=== PATIENT | female | born 1955 | race Caucasian/White ===

== ENCOUNTER 2020-12-04 16:11 | Outpatient (REF) | payer OTHER, SELFPAY ==
--- NOTE | 2020-12-04 16:14 | US_ITS ---
EXAMINATION: ULTRASOUND SOFT TISSUE HEAD AND NECK CLINICAL INFORMATION: ENLARGED LYMPH NODES COMPARISON: None TECHNIQUE: Doppler color and grayscale evaluation of the bilateral neck in the submandibular region FINDINGS: There are bilateral lymph nodes adjacent to the submandibular glands. There are 3 lymph nodes on the right. These measure 1.1 x 0.8 x 1 cm, 0.9 x 0.5 x 0.9 cm and 0.6 x 0.7 x 0.7 cm. These are normal in size and demonstrate normal ultrasound morphology and flow. There are 3 lymph nodes on the left. These measure 1 x 0.6 x 1.7 cm, 0.5 x 0.4 x 0.7 cm and 0.8 x 0.6 x 0.7 cm. These are normal in size and demonstrate normal ultrasound morphology and flow. Management should be determined on a clinical basis. US/US soft tiss head and/or neck IMPRESSION: Bilateral normal-appearing cervical lymph nodes adjacent to the submandibular glands. Management should be determined on a clinical basis.
== END 2020-12-04 16:12 | disposition home or self-care (01) ==
LOC: HO.US 16:11
PROVIDERS: Visit Provider Internal Medicine
DX: R59.1 Generalized enlarged lymph nodes (principal)
CPT/HCPCS: 76536

== ENCOUNTER 2021-01-01 06:22 | Outpatient (REF) | payer OTHER, SELFPAY ==
[2021-01-01 07:16] LABS: MANUAL DIFF FLAG NO
[2021-01-01 07:34] LABS: Basophils Percent Auto 0.8 % (0-2); Eosinophils Absolute Auto 0.2 X10*3/uL (0.0-0.4); Eosinophils Percent Auto 3.2 % (0-4); Hematocrit 41.1 % (37-47); Hemoglobin 13.3 g/dl (12.0-16.0); Imm Gran Abs Auto 0.02 X10*3/uL (0.00-0.03); Imm Gran Pct Auto 0.4 % (0.0-0.4); Lymphocytes Absolute Auto 2.1 X10*3/uL (1.2-4.9); Lymphocytes Percent Auto 39.4 % (20-40); Mean Corpuscular HGB Conc 32.4 g/dl (31.0-35.0); Mean Corpuscular Hemoglobin 30.8 pg (27.0-33.0); Mean Corpuscular Volume 95.1 fL (80-98); Mean Platelet Volume 11.6 fL (9.4-12.3); Monocytes Absolute Auto 0.6 X10*3/uL (0.1-1.2); Monocytes Percent Auto 11.3 % (2-11); Neutrophils Absolute Auto 2.4 X10*3/uL (2.0-8.3); Neutrophils Percent Auto 44.9 % (45-73); Platelet Count 186 X10*3/uL (160-400); Red Blood Count 4.32 X10*6/uL (4.20-5.50); Red Cell Distribution Width 14.6 % (11.0-16.0); White Blood Count 5.3 X10*3/uL (4.8-10.8)
[2021-01-01 07:42] LABS: Alanine Aminotransferase 53 U/L (0-31); Albumin Level 4.1 g/dL (3.5-5.0); Alkaline Phosphatase 79 U/L (39-117); Anion Gap 11 (12-20); Aspartate Amino Transferase 50 U/L (5-31); Bilirubin Total 0.8 mg/dL (0.0-1.0); Blood Urea Nitrogen 16 mg/dL (9-16); Calcium 9.5 mg/dL (8.4-10.2); Carbon Dioxide 30 mmol/L (22-29); Chloride 104 mmol/L (96-108); Estimated Glomerular Filt Rate 51; Glucose Random 99 mg/dL (60-115); Potassium 4.2 mmol/L (3.3-5.1); Sodium 141 mmol/L (135-145); Total Protein 7.3 g/dL (6.5-8.0)
== END 2021-01-01 06:23 | disposition home or self-care (01) ==
LOC: HO.LAB 06:22
PROVIDERS: Visit Provider Internal Medicine
DX: R59.1 Generalized enlarged lymph nodes (principal)
CPT/HCPCS: 36415; 80053; 85025

== ENCOUNTER 2021-02-10 07:20 | Outpatient (REF) | payer OTHER, SELFPAY ==
[2021-02-10 08:10] LABS: Blood Urea Nitrogen 16 mg/dL (9-16); Estimated Glomerular Filt Rate 50
[2021-02-16 11:52] LABS: Vitamin D 25-OH, D2 <4 ng/mL; Vitamin D 25-OH, D3 44 ng/mL; Vitamin D 25-OH, Total 44 ng/mL (30-100)
[2021-02-17 18:36] LABS: Parathyroid Hormone Related Pr 17 pg/mL (14-27)
== END 2021-02-10 07:21 | disposition home or self-care (01) ==
LOC: HO.LAB 07:20
PROVIDERS: PCP Internal Medicine; Visit Provider Internal Medicine
DX: E55.9 Vitamin D deficiency, unspecified (principal); R22.1 Localized swelling, mass and lump, neck
CPT/HCPCS: 36415; 82306; 82565; 83519; 84520

== ENCOUNTER 2021-02-13 07:50 | Outpatient (REF) | payer OTHER, SELFPAY ==
--- NOTE | ~2021-02-13 | CT_ITS ---
EXAMINATION: CT SOFT TISSUE NECK WITH CONTRAST CLINICAL INFORMATION: Localized swelling, mass or lump COMPARISON: None TECHNIQUE: Following the intravenous administration of 100 mL of Omnipaque 350 intravenous contrast, helical imaging was performed in the axial plane with generation of coronal and sagittal reformatted images. This CT examination was performed using dose optimization techniques as appropriate, variously including the following: *Automated exposure control *Adjustment of mA and/or kV according to patient size (this includes techniques or standardized protocols for targeted exams where dose is matched to indication/reason for exam; i.e. extremities or head) *Use of iterative reconstruction technique DLP: 376 mGy-cm FINDINGS: There are bilateral shotty neck lymph nodes. The largest submandibular left neck lymph node measures 1.5 cm on axial image 56/3. The largest right submandibular and left and measures 9 mm. The parotid glands are homogeneous in attenuation. The submandibular glands are normal. No contour abnormality or pathologic enhancement is seen within the oral cavity or pharyngeal mucosal space. There is significant narrowing of the laryngeal airway with mild bilateral thickening of aryepiglottic folds. No abnormal enhancement seen in the larynx. The vocal cords are symmetrical. The parapharyngeal fat is preserved. The carotid sheath vasculature opacify normally. No extra mucosal soft tissue mass or fluid collection is seen. No retropharyngeal fluid collection is seen. There is a complex 7 mm nodule right thyroid lobe. The thyroid gland is heterogeneous. The superior mediastinum is unremarkable. The lung apices are clear. The mastoid air cells are normal. There is small polyp or retention cyst left maxillary sinus. Rest of the paranasal sinuses are well-aerated and clear. The temporomandibular joints are normal. No periapical disease is identified. No osseous abnormalities are seen. The imaged portions of the brain parenchyma are unremarkable. CT/CT soft tissue neck w con IMPRESSION: No mass, lump or abnormal neck lymphadenopathy seen. There is significant laryngeal airway narrowing from thickening of aryepiglottic fold.
== END 2021-02-13 07:51 | disposition home or self-care (01) ==
LOC: HO.CT 07:50
PROVIDERS: Visit Provider Internal Medicine
DX: R22.1 Localized swelling, mass and lump, neck (principal)
CPT/HCPCS: 70491; Q9967

== ENCOUNTER 2021-03-14 07:23 | Outpatient (REF) | payer OTHER, SELFPAY ==
--- NOTE | ~2021-03-14 | US_ITS ---
EXAMINATION: US THYROID CLINICAL INFORMATION: Nontoxic single thyroid nodule. COMPARISON: CT soft tissue neck 02/13/2021. Ultrasound soft tissue head and neck 12/04/2020. TECHNIQUE: Linear transducer grayscale and color Doppler examination with attention to the region of the thyroid. FINDINGS: SIZE: Measurements of the thyroid lobes and nodules are given in sagittal, anteroposterior and transverse dimensions respectively. Right Thyroid Lobe: 3.48 x 1.51 x 1.40 cm, volume 3.85 mL. Parenchyma: The gland echotexture is heterogeneous. Thyroid vascularity is normal. Left Thyroid Lobe: 4.23 x 1.85 x 1.49 cm, volume 6.12 mL. Parenchyma: The gland echotexture is heterogeneous. Thyroid vascularity is normal. Isthmus: 0.46 cm in maximum AP dimension. Estimated total number of nodules greater than or equal to 1 cm: 1. [employer] nodules are described as follows: 1. Location: Right upper. Size: 0.78 x 0.61 x 0.84 cm, volume 0.21 mL. Nodule characteristics: Composition: Spongiform (0). Echogenicity: 0 Shape: 0 Margins: 0 Echogenic Foci: 0 ACR TI-RADS total points: 0 ACR TI-RADS category: 1 2. Location: Left lower pole. Size: 1.9 x 1.6 x 1.7 cm, volume 2.7 mL. Nodule characteristics: Composition: Solid/almost completely solid (2). Echogenicity: Hyperechoic (1). Shape: Not taller than wide (0). Margins: Smooth (0). Echogenic Foci: Punctate echogenic foci (3). ACR TI-RADS total points: 6 ACR TI-RADS category: 4 3. Location: Left midpole. Size: 0.40 x 0.31 x 0.44 cm, volume 0.03 mL. Nodule characteristics: Composition: Cystic(0). ACR TI-RADS total points: 0 ACR TI-RADS category: 1 NODES: There is a 1.2 x 0.7 x 0.7 cm hypoechoic lesion exophytic to the posterior lower pole of the left lobe. This appears solid and avascular. This may represent a lymph node. US/US thyroid IMPRESSION: Heterogeneous thyroid gland with bilateral thyroid nodules. Fine-needle aspiration of the largest nodule in the inferior left lobe and continued ultrasound follow-up as described below is recommended. ACR TI-RADS RECOMMENDATION REFERENCE: Ultrasound-guided fine-needle aspiration, followup ultrasound, no further follow up. * TR1 (0 point) and TR 2 (2 points): No FNA or follow up * TR3 (3 points): FNA if more than or equal to 2.5 cm in maximum dimension, followup ultrasound in 1, 3 and 5 years if 1.5 to 2.4 cm in maximum dimension. * TR4 (4-6 points): FNA if more than or equal to 1.5 cm in maximum dimension, followup ultrasound in 1, 2, 3 and 5 years if 1 to 1.4 cm in maximum dimension. * TR5 (more than or equal to 7 points): FNA if more than or equal to 1 cm in maximum dimension, followup ultrasound every year for 5 years if 0.5 to 0.9 cm in maximum dimension. * TR3, TR4 or TR5 nodules that are below the size threshold for follow up receive no follow up.
== END 2021-03-14 07:24 | disposition home or self-care (01) ==
LOC: HO.US 07:23
PROVIDERS: Visit Provider Internal Medicine
DX: E04.1 Nontoxic single thyroid nodule (principal)
CPT/HCPCS: 76536

== ENCOUNTER → 2021-03-23 14:10 | Outpatient (BNVA) | payer OTHER, SELFPAY | PROVIDERS: PCP Internal Medicine; Visit Provider Internal Medicine Pulmonary Disease ==

== ENCOUNTER 2021-03-30 14:15 | Outpatient (REF) | payer OTHER, SELFPAY ==
--- NOTE | ~2021-03-30 | MM_ITS ---
EXAMINATION: MM DIAGNOSTIC DIGITAL BREAST TOMOSYNTHESIS, BILATERAL CLINICAL INFORMATION: Bilateral retroareolar lump. The lifetime risk of breast cancer based on the Tyrer-Cuzick Model is 8.5%. COMPARISON: Mammography: 05/13/2014 and studies dating back to 06/04/2008. TECHNIQUE: Digital breast tomosynthesis is performed in both the craniocaudal and mediolateral oblique views along with computer-aided detection (CAD). Synthesized 2D images are generated from the Tomosynthesis. Additional left exaggerated craniocaudal view performed. Bilateral targeted breast ultrasound. FINDINGS: The breasts are heterogeneously dense, which may obscure small masses (ACR BI-RADS breast composition Category c). There are no significant masses, abnormal calcifications, or other abnormalities. Targeted bilateral breast ultrasound demonstrated prominent bilateral retroareolar breast ducts without abnormal filling defects. No suspicious region of abnormal distal sound shadowing is appreciated. Results are provided to the patient at time of visit by the technologist. MM/MM tomosynthesis diagnostic BI IMPRESSION: No specific mammographic or ultrasound findings to suggest malignancy. ASSESSMENT: BI-RADS 1: Negative. RECOMMENDATION: Routine annual mammography screening due in 12 months. This patient's information was entered into a reminder system with a target due date for their next mammogram.
--- NOTE | ~2021-03-30 | US_ITS ---
EXAMINATION: US DIAGNOSTIC ULTRASOUND BREAST, BILATERAL CLINICAL INFORMATION: Bilateral breast lumps. COMPARISON: Mammography of same day and studies dating back to July 20, 2011. TECHNIQUE: Ultrasound of the breast is performed with real-time dodd scale imaging and color Doppler. FINDINGS: Targeted bilateral breast ultrasound demonstrated prominent bilateral retroareolar breast ducts without abnormal filling defects. No suspicious region of abnormal distal sound shadowing is appreciated. Results are provided to the patient at time of visit by the technologist. US/US breast LT limited IMPRESSION: No specific mammographic or ultrasound findings to suggest malignancy. ASSESSMENT: BI-RADS 1: Negative RECOMMENDATION: Routine annual mammography screening due in 12 months.
== END 2021-03-30 14:16 | disposition home or self-care (01) ==
LOC: HO.MAMMO 14:15
PROVIDERS: PCP Internal Medicine Cardiovascular Disease; Visit Provider Internal Medicine
DX: N63.15 Unspecified lump in the right breast, overlapping quadrants (principal); N63.25 Unspecified lump in the left breast, overlapping quadrants
CPT/HCPCS: 76642; 77062; 77066

== ENCOUNTER → 2021-04-25 12:48 | Outpatient (BNVA) | payer OTHER, SELFPAY | PROVIDERS: PCP Internal Medicine; Visit Provider Internal Medicine ==

== ENCOUNTER 2021-04-30 07:48 | Outpatient (REF) | payer OTHER, SELFPAY ==
--- NOTE | 2021-04-30 17:45 | PFT_ITS ---
NOTE: The patient unable to perform SVC maneuver due to anxiety. The patient unable to continue forward with the study. Therefore, the patient was not able to perform adequate pulmonary function study at this time. Not able to perform spirometry or diffusion capacity. Lung volumes demonstrates an SVC of 1.49 L, which is 49% predicted, and an expiratory reserve volume of 24% predicted secondary to elevated BMI. Again, this study was inconclusive due to the patient's inability to perform the study. MD SANTO Cevallos/DANIKA / [phone]
== END 2021-04-30 07:49 | disposition home or self-care (01) ==
LOC: HO.RESP 07:48
PROVIDERS: PCP Internal Medicine; Visit Provider Internal Medicine Pulmonary Disease
DX: Z13.89 Encounter for screening for other disorder (principal)

== ENCOUNTER 2021-05-01 06:46 | Outpatient (REF) | payer OTHER, SELFPAY ==
[2021-05-01 08:03] LABS: Free T4 (Free Thyroxine) 0.93 ng/dL (0.71-1.85); Thyroid Stimulating Hormone 1.73 uIU/mL (0.32-4.0)
== END 2021-05-01 06:47 | disposition home or self-care (01) ==
LOC: HO.LAB 06:46
PROVIDERS: PCP Internal Medicine; Visit Provider Internal Medicine
DX: E04.2 Nontoxic multinodular goiter (principal)
CPT/HCPCS: 36415; 84439; 84443

== ENCOUNTER → 2021-05-16 08:10 | Outpatient (BNVA) | payer OTHER, SELFPAY | PROVIDERS: PCP Internal Medicine; Visit Provider Physician Assistant ==

== ENCOUNTER → 2021-05-22 09:11 | Outpatient (BNVA) | payer OTHER, SELFPAY | PROVIDERS: PCP Internal Medicine; Visit Provider Internal Medicine Pulmonary Disease ==

== ENCOUNTER → 2021-06-01 07:51 | Outpatient (REF) | payer OTHER, SELFPAY ==
--- NOTE | 2021-06-01 07:56 | CA_ITS ---
Transthoracic Echocardiogram Patient (Last, First, Middle): Devika Quiñonez B Gender: Female Date of : 1955 Age: 66 Procedure Date: 06/01/2021 Procedure Type: Transthoracic Echocardiogram Location: OP Height: 170.18 cm Weight: 115.67 kg BSA: 2.24 m2 Heart Rate: bpm BP: 127 / 71 mmHg Post Graduate Internship: [facility] Referring MD: Khang Marvin MD Symptoms: R06.00 - Dyspnea, unspecified Study Quality: Fair/Contrast Conclusions: - Normal left ventricular size and systolic function. There is mildly increased left ventricular wall thickness. The visually estimated ejection fraction is between 65-70%. - E/E prime ratio is between 8 and 15 consistent with indeterminate filling pressures. - Normal right ventricular cavity size and systolic function. - There is mild dilatation of the ascending aorta measuring 3.90 cm. Findings Procedure Information Contrast agent, definity, is being given per protocol without apparent complications. Left Ventricle Normal left ventricular size and systolic function. There is mildly increased left ventricular wall thickness. The visually estimated ejection fraction is between 65-70%. There is no evidence of regional wall motion abnormalities. Abnormal diastolic function is noted. Spectral Doppler is indicative of a pseudonormal filling pattern. E/E prime ratio is between 8 and 15 consistent with indeterminate filling pressures. Right Ventricle Normal right ventricular cavity size and systolic function. Atria Both atria are normal in size. Aortic Valve Normal aortic valve structure and function. There is no aortic valve stenosis. There is no aortic valve regurgitation. Mitral Valve There is moderate mitral annular calcification. There is no mitral valve regurgitation. There is no mitral valve stenosis. Pulmonic Valve The pulmonic valve is likely normal. Tricuspid Valve Normal tricuspid valve structure and function. There is trace tricuspid valve regurgitation. Normal right atrial pressure. Mild pulmonary hypertension is present. Great Vessels The pulmonary artery was not well visualized. There is mild dilatation of the ascending aorta measuring 3.90 cm. Venous The inferior vena cava is normal in size and collapses greater than 50% with inspiration. Pericardium/Pleural There is no evidence of pericardial effusion. Prior Study Comparison No significant change compared to prior study dated: 02/27/2019. Measurements 2D Linear Measurements IVSd: 1.12 0.6-0.9/0.6-1.0 cm LVIDd: 4.11 3.9-5.3/4.2-5.9 cm LVIDd Index: 1.83 2.4-3.2/2.2-3.1 cm/m2 LVIDs: 2.41 2.0-3.6 cm LVPWd: 1.20 0.7-1.1 cm Ao Root: 3.20 2.1-3.5 cm LA Diam: 4.00 2.7-3.8/3.0-4.0 cm LAIDs Index: 1.79 1.5-2.3 cm/m2 LV Mass: 204.28 67-162/88-224 g LV Mass Index: 91.20 43-95/49-115 g/m2 LVOT Diam: 2.10 3.0+(-)1.3 cm 2D Systolic Function EF 4C: 76.10 >55% EF 2C: 68.70 >55% EF BiP: 71.70 >55% Mitral Valve MV Pk E: 0.91 MV PK A: 0.85 MV Decel Time: 243.00 E/A: 1.10 E'Lateral: 8.05 E'Medial: 7.72 E/E' Med: 11.70 E/E' Lat: 11.30 PHT: 71.00 MVA PHT: 3.10 Decel [place]: 3.73 Aortic Valve AoV Pk Yasmany: 1.45 AoV Mn Yasmany: 1.00 AoV VTI: 0.33 AoV Pk Grad: 8.00 Aov Mn Grad: 4.00 NANCY Cont.VTI: 2.33 LVOT LVOT Pk Yasmany: 0.81 LVOT Mn Yasmany: 0.54 LVOT VTI: 0.22 LVOT Pk Grad: 3.00 LVOT Mn Grad: 1.00 LVOT Diam: 2.10 LVOT Area: 3.46 Diastolic Function MV Pk E: 0.91 MV Pk A: 0.85 E/A: 1.10 E'Medial: 7.72 E/E' Med: 11.70 E' Laterial: 8.05 E/E' Lat: 11.30 Right Ventricle TAPSE (mm): 2.53 Tricuspid Valve TR Pk Yasmany: 2.71 TR Pk Grad: 29.00 RA Press: 8.00 RVSP: 37.00 Great Vessels Aorta Ao Root-2D: 3.20 2.0-3.7 cm Ao Asc: 3.90 2.1-3.4 cm Ao Arch: 3.10 Updated in Other Vendor System with Status of Final Jose Manuel Ma MD electronically signed on 06/02/2021 10:03:05 PM with status of Final
== END ==
LOC: HO.CARD 07:51
PROVIDERS: Visit Provider Internal Medicine Pulmonary Disease
DX: R06.00 Dyspnea, unspecified (principal)
CPT/HCPCS: 93306; Q9957

== ENCOUNTER → 2021-06-11 08:54 | Outpatient (BNVA) | payer OTHER, SELFPAY | PROVIDERS: PCP Internal Medicine; Visit Provider Internal Medicine Pulmonary Disease ==

== ENCOUNTER 2021-07-05 07:26 | Outpatient (REF) | payer OTHER, SELFPAY ==
--- NOTE | 2021-07-05 08:25 | PM.OP ---
Brief Operative Note Date of Service: 07/05/21 Pre-op diagnosis: Multinodular thyroid Post-op diagnosis: same Procedure: This is doctor Cleopatra Dias. This is an ultrasound-guided fine-needle aspiration report. Date of Examination: 07/05/2021 Indication: Multinodular Thyroid Porcedure: Procedure was explained to the patient. Alternatives, the risk and benefits were discussed. Written consent was obtained. A time-out was also obtained. After sterile preparation, 0.5 cc of lidocaine was administered to the L thyroid region subcutaneously. The patient then began having a panic attack and the procedure was aborted. The LLP nodule was remeasured at 2.2 cm, slightly large from prior. Will discuss with Radiology performing this under conscious sedation. Surgeon: Cleopatra Dias, DO Was an Centrifugal Casting Machine Operator used for this Procedure?: No Estimated blood loss (mL): 0
[2021-07-05] MEDS: Lidocaine HCl 1 % MPF 5 ML VIAL SUBCUT (11:11)
== END 2021-07-05 07:27 | disposition home or self-care (01) ==
LOC: HO.US 07:26
PROVIDERS: PCP Internal Medicine; Visit Provider Internal Medicine
DX: E04.2 Nontoxic multinodular goiter (principal); F41.0 Panic disorder [episodic paroxysmal anxiety]; Z53.8 Procedure and treatment not carried out for other reasons
CPT/HCPCS: 10005

== ENCOUNTER → 2021-07-18 07:43 | Outpatient (BNVA) | payer OTHER, SELFPAY | PROVIDERS: PCP Internal Medicine; Visit Provider Internal Medicine ==

== ENCOUNTER 2021-08-03 07:16 | Day surgery (SDC) | payer OTHER, SELFPAY ==
--- NOTE | ~2021-08-03 | US_ITS ---
EXAMINATION: US GUIDED FINE NEEDLE ASPIRATION LEFT THYROID NODULE AND LYMPH NODE CLINICAL INFORMATION: There is a heterogeneous nodule lower pole left thyroid lobe and a cervical lymph node posterior to the lower pole of left thyroid lobe. COMPARISON: Ultrasound thyroid 03/14/2021. TECHNIQUE: Following explaining ultrasound-guided fine-needle aspiration biopsy procedure, benefits and risks of left thyroid nodule, a written consent was obtained. A written consent for conscious sedation was performed as well. Patient was placed supine on ultrasound stretcher with the head extended. Preliminary ultrasound imaging was obtained. Site for thyroid nodule and lymph node biopsy was marked on the anterior skin. The left anterior neck was cleaned and draped in the usual sterile manner. 1% lidocaine was injected at the puncture site. A 25-gauge needle was then advanced from the skin into left thyroid nodule under sterile ultrasound guidance and a 3-pass fine-needle aspiration performed. Slightly deeper lymph node was biopsied in a similar fashion x2. Postprocedure complete hemostasis achieved at puncture site. Sterile Band-Aid applied at the puncture site. Patient tolerated procedure extremely well. Conscious sedation and patient monitoring was performed during the exam. Approximately 2 mg of Versed and 50 mcg of fentanyl was given during the exam. FINDINGS: On preliminary ultrasound imaging, there is a complex nodule lower pole left thyroid lobe measuring 1.8 x 1.9 x 1.5 cm. 3 passes with fine-needle aspiration was performed. The tissue was adequate. The lymph node posterior to lower pole thyroid nodule was biopsied x2. No immediate pathology diagnosis was noted. US/US guided fine needle asp IMPRESSION: Successful ultrasound-guided 3-pass left thyroid lower pole nodule biopsy performed. A 2-pass lymph node biopsy was performed posterior to left thyroid nodule in the lower pole. Awaiting cytology results.
[2021-08-03 07:50] VITALS: BP 163/96; PULSE 78; RESP 19; TEMP 36.6; O2SAT 96; BMI 41.9
[2021-08-03 08:37] LABS: MANUAL DIFF FLAG NO
[2021-08-03 08:44] LABS: Basophils Percent Auto 0.5 % (0-2); Eosinophils Absolute Auto 0.1 X10*3/uL (0.0-0.4); Eosinophils Percent Auto 2.4 % (0-4); Hematocrit 39.9 % (37-47); Imm Gran Abs Auto 0.02 X10*3/uL (0.00-0.03); Imm Gran Pct Auto 0.3 % (0.0-0.4); Lymphocytes Percent Auto 35.2 % (20-40); Mean Corpuscular HGB Conc 32.6 g/dl (31.0-35.0); Mean Corpuscular Hemoglobin 30.2 pg (27.0-33.0); Mean Corpuscular Volume 92.6 fL (80-98); Mean Platelet Volume 10.8 fL (9.4-12.3); Monocytes Absolute Auto 0.7 X10*3/uL (0.1-1.2); Monocytes Percent Auto 11.6 % (2-11); Neutrophils Absolute Auto 2.9 X10*3/uL (2.0-8.3); Platelet Count 177 X10*3/uL (160-400); Red Blood Count 4.31 X10*6/uL (4.20-5.50); Red Cell Distribution Width 13.9 % (11.0-16.0); White Blood Count 5.8 X10*3/uL (4.8-10.8)
[2021-08-03 08:49] LABS: Prothrombin Time 11.2 SEC (9.9-13.0)
[2021-08-03 08:52] LABS: Partial Thromboplastin Time 40.8 SEC (24.1-38.0)
[2021-08-03 08:55] LABS: Anion Gap 12 (12-20); Blood Urea Nitrogen 14 mg/dL (9-16); Carbon Dioxide 26 mmol/L (22-29); Chloride 105 mmol/L (96-108); Potassium 3.7 mmol/L (3.3-5.1); Sodium 139 mmol/L (135-145)
[2021-08-03] MEDS: Lidocaine HCl 1 % MPF 5 ML VIAL SUBCUT (10:37)
[2021-08-03 10:49] VITALS: BP 165/95; PULSE 80; RESP 18; TEMP 36.6; O2SAT 95
[2021-08-03 11:07] VITALS: BP 162/98; PULSE 77; RESP 16; O2SAT 95
[2021-08-03 11:22] VITALS: BP 150/94; PULSE 75; RESP 16; TEMP 36.6; O2SAT 95
[2021-08-03 11:37] VITALS: BP 145/92; PULSE 76; RESP 16; O2SAT 95
[2021-08-03] MEDS: oxyCODONE HCl Immed Release 5 MG TABLET PO (11:50)
[2021-08-03] MEDS: Acetaminophen 325 MG TABLET 650 MG PO (11:50)
[2021-08-03 11:52] VITALS: BP 154/89; PULSE 76; RESP 16; TEMP 36.6; O2SAT 95
== END 2021-08-03 12:30 | disposition home or self-care (01) ==
PROVIDERS: Radiology Diagnostic Radiology; PCP Internal Medicine; Visit Provider Internal Medicine
DX: E04.2 Nontoxic multinodular goiter (principal); R59.1 Generalized enlarged lymph nodes; N63.25 Unspecified lump in the left breast, overlapping quadrants; I10 Essential (primary) hypertension; E55.9 Vitamin D deficiency, unspecified; Z79.51 Long term (current) use of inhaled steroids; Z79.899 Other long term (current) drug therapy; Z88.0 Allergy status to penicillin; Z88.8 Allergy status to other drugs, medicaments and biological substances
CPT/HCPCS: 10005; 36415; 80051; 84520; 85025; 85610; 85730; 88172; 88173; 88305; 99152; 99153; J2250; J3010

== ENCOUNTER → 2021-08-03 | Day surgery (SDC) | payer OTHER, SELFPAY | END | disposition home or self-care (01) | PROVIDERS: PCP Internal Medicine; Visit Provider Internal Medicine | DX: E04.2 Nontoxic multinodular goiter (principal); Z53.9 Procedure and treatment not carried out, unspecified reason | CPT/HCPCS: 88172; 88173; 88305 ==

== ENCOUNTER → 2021-08-23 08:14 | Outpatient (BNVA) | payer OTHER, SELFPAY | PROVIDERS: PCP Internal Medicine; Visit Provider Internal Medicine ==

== ENCOUNTER 2021-09-01 07:19 | Outpatient (REF) | payer OTHER, SELFPAY ==
[2021-09-01 08:07] LABS: Alanine Aminotransferase 59 U/L (0-31); Albumin Level 4.3 g/dL (3.5-5.0); Alkaline Phosphatase 80 U/L (39-117); Anion Gap 11 (12-20); Aspartate Amino Transferase 53 U/L (5-31); Bilirubin Total 0.7 mg/dL (0.0-1.0); Blood Urea Nitrogen 14 mg/dL (9-16); Calcium 10.2 mg/dL (8.4-10.2); Carbon Dioxide 28 mmol/L (22-29); Chloride 104 mmol/L (96-108); Estimated Glomerular Filt Rate 57; Glucose Random 103 mg/dL (60-115); Phosphorus 2.8 mg/dL (2.7-4.5); Potassium 4.1 mmol/L (3.3-5.1); Sodium 139 mmol/L (135-145); Total Protein 7.8 g/dL (6.5-8.0)
[2021-09-01 08:27] LABS: Free T4 (Free Thyroxine) 1.13 ng/dL (0.71-1.85); Thyroid Stimulating Hormone 1.67 uIU/mL (0.32-4.0); Vitamin D 25-OH Total 60.1 ng/mL (>30)
[2021-09-03 13:41] LABS: PTHI 91 pg/mL (14-64)
== END 2021-09-01 07:20 | disposition home or self-care (01) ==
LOC: HO.LAB 07:19
PROVIDERS: PCP Internal Medicine; Visit Provider Internal Medicine
DX: E04.2 Nontoxic multinodular goiter (principal); E55.9 Vitamin D deficiency, unspecified
CPT/HCPCS: 36415; 80053; 82306; 83970; 84100; 84439; 84443

== ENCOUNTER → 2021-09-26 07:55 | Outpatient (BNVA) | payer OTHER, SELFPAY | PROVIDERS: PCP Internal Medicine; Visit Provider Internal Medicine ==

== ENCOUNTER 2021-10-06 07:53 | Outpatient (REF) | payer OTHER, SELFPAY ==
[2021-10-06 09:13] LABS: Alanine Aminotransferase 69 U/L (0-31); Alkaline Phosphatase 77 U/L (39-117); Anion Gap 9 (12-20); Aspartate Amino Transferase 77 U/L (5-31); Bilirubin Total 0.5 mg/dL (0.0-1.0); Blood Urea Nitrogen 14 mg/dL (9-16); Calcium 9.5 mg/dL (8.4-10.2); Carbon Dioxide 29 mmol/L (22-29); Chloride 103 mmol/L (96-108); Estimated Glomerular Filt Rate 58; Glucose Random 100 mg/dL (60-115); Phosphorus 2.8 mg/dL (2.7-4.5); Potassium 3.9 mmol/L (3.3-5.1); Sodium 137 mmol/L (135-145); Total Protein 7.3 g/dL (6.5-8.0)
[2021-10-07 20:03] LABS: Prot Elec - Albumin 3.9 g/dL (3.8-4.8); Prot Elec - Alpha1 0.4 g/dL (0.2-0.3); Prot Elec - Alpha2 0.7 g/dL (0.5-0.9); Prot Elec - Beta 1 0.4 g/dL (0.4-0.6); Prot Elec - Beta 2 0.5 g/dL (0.2-0.5); Prot Elec - Gamma 1.4 g/dL (0.8-1.7); Prot Elec - Total Protein 7.2 g/dL (6.1-8.1)
[2021-10-08 12:15] LABS: Calcium (PTHI) 10.1 mg/dL (8.6-10.4); PTHI 75 pg/mL (14-64)
[2021-10-08 19:47] LABS: DHEA Sulfate 151 mcg/dL (12-133)
== END 2021-10-06 07:54 | disposition home or self-care (01) ==
LOC: HO.LAB 07:53
PROVIDERS: PCP Internal Medicine; Visit Provider Internal Medicine
DX: E21.3 Hyperparathyroidism, unspecified (principal)
CPT/HCPCS: 36415; 80053; 82627; 83970; 84100; 84165

== ENCOUNTER 2021-11-21 08:13 | Outpatient (REF) | payer OTHER, SELFPAY ==
--- NOTE | ~2021-11-21 | MM_ITS ---
EXAMINATION: BONE DENSITOMETRY CLINICAL INDICATION: Hyperparathyroidism. COMPARISON: None (current study represents initial baseline exam). TECHNIQUE: Using a FitOrbit DXA System (software version: 13.1) manufactured by [employer], dual-energy x-ray absorptiometry was performed of the lumbar spine, left hip, and left forearm radius 33%. The images are of good technical quality. Summary results are attached. FINDINGS: AP SPINE L1-L2 (excluding L3 and L4): The data of L1-L4 has been changed to exclude the L3 and L4 vertebral bodies, because degenerative changes at these levels may cause overestimation of lumbar spine density. BMD 1.255 g/cm2, Z-score 1.2, T-score 0.8, normal. LEFT FEMUR, NECK: BMD 0.932 g/cm2, Z-score 0.0, T-score -0.8, normal. LEFT FEMUR, TOTAL: BMD 1.002 g/cm2, Z-score 0.4, T-score 0.0, normal. LEFT FOREARM RADIUS 33%: BMD 0.988 g/cm2, Z-score 2.8, T-score 1.3, normal. IDENTIFIED RISK FACTORS: Menopause, hyperparathyroid, height loss, renal. HISTORY OF FRACTURE: None listed. MEDICATIONS: Multivitamin. MM/XR DEXA appendicular skeleton IMPRESSION: 1. DIAGNOSIS: Normal bone density based on the lowest T-score value of -0.8 in the femoral neck applying World Health Organization criteria. 2. 10-YEAR FRACTURE RISK PREDICTION, FRAX: According to the guidelines, FRAX calculation should only be performed on patients in the osteopenia bone density category. Therefore, FRAX was not performed on this patient. 3. Treatment Recommendations: NOF guidelines recommend consideration for treatment in postmenopausal women and men age 50 and older presenting with the following: -A hip or vertebral (clinical or morphometric) fracture. -T-score less than or equal to -2.5 at the femoral neck or spine after appropriate evaluation to exclude secondary causes. -Low bone mass at the hip or spine and a 10-year fracture probability by FRAX of greater than or equal to 3% for hip fracture or greater than or equal to 20% for major osteoporotic fracture based on the [place] adapted WHO algorithm. 4. Other Recommendations: All treatment decisions require clinical judgment and consideration of individual patient factors, including patient preferences, comorbidities, previous drug use, risk factors not captured in the FRAX model (e.g. frailty, falls, vitamin D deficiency, increased bone turnover, interval significant decline in bone density) and possible under or overestimation of fracture risk by FRAX. FUTURE SCAN RECOMMENDATION: People with diagnosed cases of osteoporosis or at high risk for fracture should have regular bone mineral density tests. For patients eligible for Medicare, routine testing is allowed once every 2 years. The testing frequency can be increased to one year for patients who have rapidly progressing disease, those who are receiving or discontinuing medical therapy to restore bone mass, or have additional risk factors.
== END 2021-11-21 08:14 | disposition home or self-care (01) ==
LOC: HO.MAMMO 08:13
PROVIDERS: PCP Internal Medicine; Visit Provider Internal Medicine
DX: Z13.820 Encounter for screening for osteoporosis (principal); E21.3 Hyperparathyroidism, unspecified; Z78.0 Asymptomatic menopausal state; Z79.899 Other long term (current) drug therapy
CPT/HCPCS: 77081

== ENCOUNTER 2021-12-04 09:18 | Outpatient (REF) | payer OTHER, SELFPAY ==
--- NOTE | ~2021-12-04 | US_ITS ---
EXAMINATION: US ABDOMEN LIMITED WITH LIVER ELASTOGRAPHY CLINICAL INFORMATION: R74.01 - Elevation of levels of liver transaminase levels COMPARISON: None. TECHNIQUE: Real-time imaging of the abdominal viscera. Noninvasive ultrasound liver fibrosis assessment is performed using Demario ElastPQ point quantification shear wave elastography (2D-SWE) with a C5-2 MHz transducer. Multiple elastography samples are obtained. FINDINGS: PANCREAS: The visualized pancreas is normal in size and contour and echogenicity. No pancreatic ductal distention. Distal body and tail are partly obscured by bowel gas and not completely imaged. LIVER: The liver is normal in size and smooth in contour. Parenchymal echogenicity is borderline increased. There may be mild underlying hepatic steatosis. No focal parenchymal lesion or intrahepatic biliary ductal dilatation. The right lobe measures 17.0 cm in length. The left lobe measures 12.8 cm in length. Portal flow is towards the liver (hepatopetal). Shear wave liver elastography median stiffness is 1.26 m/s (reference: normal median stiffness is 1.3 m/s or less). IQR/median stiffness to assess sampling precision is 0.17 (reference: good quality data set is IQR/median stiffness of 0.15 or less). GALLBLADDER: There is a 2.5 cm mobile gallstone. Second stone possibly present on one of the images. There is no gallbladder dilatation or wall thickening or pericholecystic fluid. COMMON BILE DUCT: Normal in caliber measuring 0.3 cm in diameter. RIGHT KIDNEY: Normal. No hydronephrosis. No renal calculi or focal parenchymal lesions. The kidney measures 10.2 cm in maximum dimension. FREE FLUID: None. US/US abdomen [place] w elastography IMPRESSION: 1. Gallstone. No gallbladder wall thickening or ductal dilatation. 2. Liver normal in size and smooth in contour. Possible mild hepatic steatosis. 3. Liver elastography: Measurements are consistent with a high probability of normal liver stiffness. REFERENCE: Society of Radiologists in Ultrasound Liver Stiffness Thresholds (2020): LIVER STIFFNESS THRESHOLDS: *Liver Stiffness equal or less than 1.3 m/s: High probability of being normal. *Liver Stiffness less than 1.7 m/s: In the absence of other known clinical signs, rules out compensated advanced chronic liver disease. *Liver Stiffness 1.7-2.1 m/s: Suggestive of compensated advanced chronic liver disease but need further test for confirmation. *Liver Stiffness over 2.1 m/s: Rules in compensated advanced chronic liver disease. *Liver Stiffness over 2.4 m/s: Suggestive of clinically significant portal hypertension. QUALITY OF DATA SET: *IQR/Median value equal or less than 0.15 implies a quality data set. *IQR/Median value over 0.15 implies a poor quality data set. SIGNIFICANT CHANGE FROM PRIOR EXAM: Significant change if liver stiffness measurement is 10% or greater from prior exam. OTHER CONSIDERATIONS: The stage of liver fibrosis may be overestimated in the setting of acute hepatitis, liver inflammation, elevated liver function tests, hepatic vascular congestion, obstructive cholestasis, non-fasting state, and infiltrative diseases such as amyloidosis and lymphoma. In some patients with NAFLD, the liver stiffness thresholds for compensated advanced chronic liver disease may be lower. In causes other than viral hepatitis and NAFLD, liver stiffness thresholds are not well established.
== END 2021-12-04 09:19 | disposition home or self-care (01) ==
LOC: HO.US 09:18
PROVIDERS: PCP Internal Medicine; Visit Provider Internal Medicine
DX: R74.01 Elevation of levels of liver transaminase levels (principal)
CPT/HCPCS: 76705; 76981

== ENCOUNTER → 2022-08-20 13:27 | Outpatient (BNVA) | payer MEDICARE, SELFPAY | PROVIDERS: PCP Internal Medicine; Visit Provider Internal Medicine | DX: E04.2 Nontoxic multinodular goiter (principal); E21.3 Hyperparathyroidism, unspecified; E55.9 Vitamin D deficiency, unspecified | CPT/HCPCS: Q3014 ==

== ENCOUNTER 2022-08-22 06:52 | Outpatient (REF) | payer MEDICARE, SELFPAY ==
[2022-08-22 08:18] LABS: Alanine Aminotransferase 109 U/L (0-31); Albumin Level 4.4 g/dL (3.5-5.0); Alkaline Phosphatase 83 U/L (39-117); Anion Gap 15 (12-20); Aspartate Amino Transferase 130 U/L (5-31); Bilirubin Total 0.6 mg/dL (0.0-1.0); Blood Urea Nitrogen 13 mg/dL (9-16); Calcium 10.2 mg/dL (8.4-10.2); Carbon Dioxide 28 mmol/L (22-29); Chloride 102 mmol/L (96-108); Estimated Glomerular Filt Rate 51; Glucose Random 122 mg/dL (60-115); Phosphorus 3.1 mg/dL (2.7-4.5); Potassium 4.1 mmol/L (3.3-5.1); Sodium 141 mmol/L (135-145); Total Protein 8.1 g/dL (6.5-8.0)
[2022-08-22 08:21] LABS: Thyroid Stimulating Hormone 1.95 uIU/mL (0.32-4.0); Vitamin D 25-OH Total 38.5 ng/mL (>30)
[2022-08-23 13:22] LABS: PTHI 81 pg/mL (16-77)
== END 2022-08-22 06:53 | disposition home or self-care (01) ==
LOC: HO.LAB 06:52
PROVIDERS: PCP Internal Medicine; Visit Provider Internal Medicine
DX: E21.3 Hyperparathyroidism, unspecified (principal); E55.9 Vitamin D deficiency, unspecified; E04.2 Nontoxic multinodular goiter
CPT/HCPCS: 36415; 80053; 82306; 83970; 84100; 84439; 84443

== ENCOUNTER 2022-10-21 09:31 | Outpatient (REF) | payer MEDICARE, SELFPAY ==
--- NOTE | ~2022-10-21 | US_ITS ---
EXAMINATION: US THYROID CLINICAL INFORMATION: Nontoxic multinodular goiter. COMPARISON: Ultrasound-guided thyroid biopsy 07/05/2021. Thyroid ultrasound 03/14/2021. Ultrasound soft tissue head/neck 12/04/2020. CT soft tissue neck 02/13/2021. TECHNIQUE: Linear transducer grayscale and color Doppler examination with attention to the region of the thyroid. Unfortunately, the orthopedic radiologic technologist did not save any cine images through the gland. FINDINGS: SIZE: Measurements of the thyroid lobes and nodules are given in sagittal, anteroposterior and transverse dimensions respectively. Right Thyroid Lobe: 3.5 x 1.5 x 1.5 cm, volume 4.0 mL. Left Thyroid Lobe: 5.0 x 2.1 x 1.5 cm, volume 8.3 mL. Isthmus: 0.4 cm in maximum AP dimension. THYROID PARENCHYMA AND NODULES: Thyroid gland has normal echotexture with exception of scattered nodules. The vascularity of the gland is normal. NODULES ARE FOLLOWS: 0.9 x 0.6 x 0.8 cm hypoechoic nodule with ill-defined border in the right upper pole appears to correspond to a mixed cystic and solid nodule from 02/22/2021 that previously measured 0.8 x 0.6 x 0.8 cm. The comet tail artifacts from echogenic foci have the appearance of inspissated colloid. ACR TI-RADS score of 4 points, TR4. 0.4 x 0.2 x 0.3 cm hypoechoic, smoothly marginated, noncalcified nodule is present in the right upper pole. It is not shown on images saved from 03/14/2021. ACR TI-RADS score of 4 points, TR4. 0.7 x 0.5 x 0.7 cm solid smoothly marginated noncalcified nodule in the posterior right lower pole is nearly isoechoic compared to the surrounding gland. ACR TI-RADS score of 3 points, TR3. 1.8 x 1.5 x 1.5 cm solid isoechoic smoothly marginated, noncalcified nodule of the left lower pole previously measured 1.9 x 1.6 x 1.7 cm on 03/14/2021. ACR TI-RADS score of 3 points, TR3. This nodule underwent ultrasound-guided FNA on 08/03/2021. A small hypoechoic focus posterior to the left lower pole measures up to 0.8 cm in maximum dimension. It corresponds to the hypoechoic focus that measures up to 1.2 cm on 03/14/2021 and probably represents a lymph node. There appears to be a small lymph node in this same location on CT images from 02/13/2021. NODES: No lymphadenopathy is seen in the tissue surrounding the thyroid gland. US/US thyroid IMPRESSION: Multinodular thyroid gland with observation of TR3 and TR4 nodules. Consider ultrasound follow-up in 24 months. ACR TI-RADS RECOMMENDATIONS: * TR1 (0 point) and TR 2 (2 points): No FNA or follow up * TR3 (3 points): FNA if at least 2.5 cm maximum dimension. Otherwise, perform ultrasound follow up in 1, 3 and 5 years if at least 1.5 cm maximum dimension. * TR4 (4-6 points): FNA if at least 1.5 cm maximum dimension. Otherwise, perform ultrasound follow up in 1, 2, 3 and 5 years if at least 1 cm maximum dimension. * TR5 (more than or equal to 7 points): FNA if at least 1 cm in maximum dimension. Otherwise, perform ultrasound follow up every year for 5 years if at least 0.5 cm in maximum dimension.
== END 2022-10-21 09:32 | disposition home or self-care (01) ==
LOC: HO.US 09:31
PROVIDERS: Visit Provider Internal Medicine
DX: E04.2 Nontoxic multinodular goiter (principal)
CPT/HCPCS: 76536

== ENCOUNTER → 2023-01-22 08:25 | Outpatient (BNVA) | payer MEDICARE, SELFPAY | PROVIDERS: PCP Internal Medicine; Visit Provider Physician Assistant | DX: K58.9 Irritable bowel syndrome, unspecified (principal); Z86.010 Personal history of colon polyps | CPT/HCPCS: 99212 ==

== ENCOUNTER 2023-02-19 08:41 | Outpatient (REF) | payer MEDICARE, SELFPAY ==
--- NOTE | ~2023-02-19 | MM_ITS ---
EXAMINATION: MM SCREENING DIGITAL BREAST TOMOSYNTHESIS, BILATERAL CLINICAL INFORMATION: Screening. Asymptomatic. The lifetime risk of breast cancer based on the Tyrer-Cuzick Model is 7%. COMPARISON: Mammography: 03/30/2021, 05/13/2014; ultrasound left breast 03/30/2021. TECHNIQUE: Digital breast tomosynthesis is performed in both the craniocaudal and mediolateral oblique views along with computer-aided detection (CAD). Synthesized 2D images are generated from the tomosynthesis. Additional bilateral exaggerated CC views are provided. FINDINGS: There are scattered areas of fibroglandular density (ACR BI-RADS breast composition Category b). Breast tissue composition borders on heterogeneously dense. The axilla and skin contours are unremarkable. Right breast shows no developing density or architectural abnormality or abnormal calcifications. Parenchymal asymmetry posterior outer right breast on initial CC view not present on exaggerated view consistent with summation artifact. Left breast has no asymmetric density or architectural abnormality. There are new relatively coarse calcifications in 2 groups posterior central lower left breast, possibly vascular or fibroadenomatous change. There are some calcifications mid 12:00 questionably increased. MM/MM tomosynthesis screening BI IMPRESSION: Left: -New relatively coarse calcifications posterior central lower breast, possibly vascular or fibroadenomatous changes. Calcifications mid 12:00 questionably increased. ASSESSMENT: BI-RADS 0: Incomplete - Need Additional Imaging Evaluation RECOMMENDATION: 1. Additional views left breast (magnification CC, magnification ML). 2. Radiology department staff will contact the patient for additional imaging. This patient's information was entered into a reminder system with a target due date for their next mammogram.
== END 2023-02-19 08:42 | disposition home or self-care (01) ==
LOC: HO.MAMMO 08:41
PROVIDERS: PCP Internal Medicine; Visit Provider Internal Medicine
DX: Z12.31 Encounter for screening mammogram for malignant neoplasm of breast (principal)
CPT/HCPCS: 77063; 77067

== ENCOUNTER 2023-02-25 08:19 | Outpatient (REF) | payer MEDICARE, SELFPAY ==
--- NOTE | ~2023-02-25 | MM_ITS ---
EXAMINATION: MM DIAGNOSTIC DIGITAL MAMMOGRAPHY, LEFT CLINICAL INFORMATION: Recall from screening for calcifications left breast. TC score 7%. No known family history breast cancer. COMPARISON: Mammography: 02/19/2023, 03/30/2021, 05/13/2014 TECHNIQUE: Digital mammography is performed in the following views: Magnification CC x3, magnification ML FINDINGS: There are scattered areas of fibroglandular density (ACR BI-RADS breast composition Category b). The magnification views confirm fine calcifications central anterior 12:00 left breast. They are better discerned on the CC view and do not appear to be vascular. This represents change from prior exam. Stereotactic sampling is recommended. There are 2 groups of calcifications in the posterior central lower left breast, both appear heterogeneous coarse, the more central posterior is more numerous. These also represent change from prior exam. Stereotactic sampling is recommended. Results are discussed with the patient at time of visit. Recommend stereotactic sampling of the anterior and posterior calcifications. MM/MM added views LT IMPRESSION: -Fine calcifications central anterior 12:00, change from prior exam. -Heterogeneous coarse calcifications posterior central and lower breast, change from prior exam. ASSESSMENT: BI-RADS 4: Suspicious RECOMMENDATION: Stereotactic sampling left breast calcifications and 2 sites, anterior and posterior. This patient's information was entered into a reminder system with a target due date for their next mammogram.
== END 2023-02-25 08:20 | disposition home or self-care (01) ==
LOC: HO.MAMMO 08:19
PROVIDERS: Visit Provider Internal Medicine
DX: R92.1 Mammographic calcification found on diagnostic imaging of breast (principal); E66.01 Morbid (severe) obesity due to excess calories
CPT/HCPCS: 77065

== ENCOUNTER 2023-03-13 09:33 | Outpatient (REF) | payer MEDICARE, SELFPAY | END 2023-03-13 09:34 | disposition home or self-care (01) | LOC: HO.MAMMO 09:33 | PROVIDERS: PCP Internal Medicine; Visit Provider Surgery | DX: R92.0 Mammographic microcalcification found on diagnostic imaging of breast (principal) | CPT/HCPCS: 99202 ==

== ENCOUNTER → 2023-04-24 14:11 | Outpatient (BNVA) | payer MEDICARE, SELFPAY | PROVIDERS: PCP Internal Medicine; Visit Provider Surgery | DX: R92.8 Other abnormal and inconclusive findings on diagnostic imaging of breast (principal) | CPT/HCPCS: 99212 ==

== ENCOUNTER 2023-09-24 07:45 | Outpatient (AMB) | payer MEDICARE, SELFPAY ==
[2023-09-24 07:51] VITALS: BP 160/110; PULSE 69; O2SAT 96; BMI 41.1
--- NOTE | 2023-09-24 07:51 | A.OFFPC_ITS ---
Vital Signs 09/24/23 07:51 Height 5 ft 5 in Weight 247 lb BMI 41.1 BP 160/110 H Blood Pressure Location Lt brachial Position Sitting Pulse 69 Pulse Source Pulse Oximeter Pulse Oximetry (%) 96 Oxygen Delivery Method Room Air Intake Visit Reasons: bp Intake Note: Patient here for a follow up BP, c/o right side rib area pain Dealmaker Required: No Accompanied by: Self / Same As Patient Allergies amoxicillin Allergy (Intermediate, Verified 09/24/23 08:09) diarrhea dicyclomine Allergy (Intermediate, Verified 09/24/23 08:09) BP spike Medication List - Last Reconciled 09/24/23 by Leticia Grayson MD losartan-hydrochlorothiazide 50-12.5 mg 1 tab PO DAILY nifedipine ER 60 mg PO DAILY Tobacco use date assessed: 12/31/22 Fall risk assessment: No Falls in past year Last assessed Fall Risk: 09/24/23 Dental Screening Dental Screen Date: 09/24/23 Did you have a dental visit in the last 12 months?: No Did you have a dental problem in the last 6 months where you did not have access to dental care?: No Was dental information given to patient?: Patient has dentist HPI HPI Comments History of Present Illness Details This is a 68-year-old female with hypertension, morbid obesity and hyperparathyroidism that comes today complaining of right-sided rib pain that started 6 weeks ago after she had sneezing multiple times but then resolve on its own and came back about a week ago. No bruise in the area. Blood pressure elevated but she took it at home Na was 138/78. Blood pressure will be recheck in 3 weeks by nurse navigator. She is morbidly obese with a BMI of 41.1 was advised to diet and exercise to reach BMI goal less than 30. She also had elevated parathyroid and labs will be repeated to distinguish between primary versus secondary. [facility] Medical History Transaminitis Hyperparathyroidism Morbid obesity Multinodular thyroid Breast mass Shortness of breath Laryngeal disorder Thyroid nodule Submandibular swelling Hypovitaminosis D Neck mass Neck pain Lymphadenopathy Essential hypertension Surgical History H/O colonoscopy History of laparoscopy History of D&C History of removal of cyst History of appendectomy History of tonsillectomy Family History Father Hypertension Prostate cancer Mother Hypertension Diabetes Dementia Social History Household Members Other:: lives alone Housing: Apartment Alcohol intake: current Alcohol intake frequency: holidays/special occasions only Alcohol type: wine and hard liquor Patient Tobacco Use Status: Never used Tobacco e-Cigarette/Vaping Use: Never Used Second Hand Smoke Exposure: Yes service: No Current occupational status: retired Current occupation: [employer] Current occupational exposures/hazards: No Cognitive needs: No Hearing needs: No Vision needs: Yes Female Reproductive History Menstrual Age of Menarche: 18 Questionnaire Thrive Questionnaire Date Thrive assessed: 12/31/22 ARIEL-7 AMB Questionnaire ARIEL-7 Date ARIEL - 7 assessed: 12/31/22 Source: Developed by Drs. Jose Kenny, Janee Self, Husam Asher and colleagues, with an educational jennifer from [email or web address]. Review of Systems Const All systems reviewed & are unremarkable except as noted in HPI and below Eyes Reports no additional complaints, Denies change in vision and Denies other visual disturbances Card Denies chest pain at rest, Denies chest pain with activity, Denies edema, Denies irregular heart rhythm, Denies claudication, Denies dyspnea, Denies dyspnea on exertion, Denies orthopnea, Denies paroxysmal nocturnal dyspnea and Denies slow heart rate Resp Denies cough, Denies dyspnea and Denies dyspnea on exertion GI Denies abdominal pain, Denies change in bowel habits, Denies excessive flatus, Denies nausea and Denies vomiting Denies urinary incontinence, Denies urinary hesitancy and Denies urinary urgency Musc Denies abnormal gait, Denies atrophy, Denies deformity and Denies limited range of motion Skin/Breast Denies bleeding lesions, Denies changing lesions and Denies rash Neuro Denies abnormal gait, Denies behavioral changes and Denies lack of coordination Psych Denies behavioral changes Physical exam (Primary Care) Vital Signs: Last Vital Signs Pulse 69 09/24/23 07:51 BP 160/110 H 09/24/23 07:51 Pulse Ox 96 09/24/23 07:51 Oxygen Delivery Method Room Air 09/24/23 07:51 BMI result Body Mass Index 41.1 Tobacco/Smoking Status: Tobacco use Status Tobacco use date assessed 12/31/22 09/24/23 08:01 Patient Tobacco Use Status Never used Tobacco 09/24/23 08:01 e-Cigarette/Vaping Use Never Used 09/24/23 08:01 Thrive Assessment: Date of Thrive Assessment Date Thrive assessed 12/31/22 09/24/23 08:01 Eyes General: appearance normal, both eyes and all related structures Eyelids: Yes eyelids normal Conjunctivae: conjunctivae normal Neck Neck: Yes normal visual inspection and Yes supple Resp Effort & Inspection: normal respiratory effort Auscultation: clear to auscultation bilaterally Cardio Jugular venous distension: no JVD Rate: regular rate Rhythm: regular rhythm Heart sounds: S1 normal heart sound present and S2 normal heart sound present Extrem General: Yes full ROM Office Procedures Flu Questionnaire Does the patient have a severe egg allergy?: No Immunizations flu vacc [id number] 6mos up(PF) 60 mcg(15 mcgx4)/0.5 mL IM syringe Performing Provider: Leticia Grayson MD [facility] Documented (not given) by: BOB Yepez on 09/24/23 08:03 Reason Not Given: Patient Refused Assessment and Plan Assessment & Plan (1) Essential hypertension: Code(s): I10 - Essential (primary) hypertension Plan: Recheck blood pressure with nurse navigator in 3 weeks. Blood pressure goal is equal or less than 130/80. Continue nifedipine and losartan- hydrochlorothiazide. (2) Morbid obesity: Code(s): E66.01 - Morbid (severe) obesity due to excess calories Plan: Continue diet. Start exercise. BMI goal is less than 30. (3) Rib pain: Code(s): R07.81 - Pleurodynia Plan: X-ray ordered. (4) Hyperparathyroidism: Code(s): E21.3 - Hyperparathyroidism, unspecified Plan: Repeat PTH intact as well as other labs. Orders: Orders Influenza [id number] Immunization Today Z23 - Encounter for immunization Vitamin D 25-OH Total Today E21.3 - Hyperparathyroidism, unspecified, E55.9 - Vitamin D deficiency, unspecified PTHI Today E21.3 - Hyperparathyroidism, unspecified Calcium, Ionized Today E21.3 - Hyperparathyroidism, unspecified Calcium, 24 Hr Ur Today E21.3 - Hyperparathyroidism, unspecified Phosphorus Today E21.3 - Hyperparathyroidism, unspecified Thyroid Stimulating Hormone Today E04.2 - Nontoxic multinodular goiter XR ribs RT 2V Today R07.81 - Pleurodynia Coding Level of Care Code Est Pt Level 4 (28895) Diagnoses Essential hypertension I10 Morbid obesity E66.01 Rib pain R07.81 Hyperparathyroidism E21.3 Time Spent (min) 23
== END 2023-09-24 08:21 | disposition home or self-care (01) ==
PROVIDERS: PCP Internal Medicine; Visit Provider Internal Medicine
DX: I10 Essential (primary) hypertension (principal); E66.01 Morbid (severe) obesity due to excess calories; E21.3 Hyperparathyroidism, unspecified; Z68.41 Body mass index [BMI] 40.0-44.9, adult; R07.81 Pleurodynia; Z23 Encounter for immunization
CPT/HCPCS: 99214

== ENCOUNTER 2023-09-24 08:26 | Outpatient (REF) | payer MEDICARE, SELFPAY ==
--- NOTE | ~2023-09-24 | XR_ITS ---
EXAMINATION: XR RIBS, RIGHT CLINICAL INFORMATION: Pleurodynia. COMPARISON: Chest radiograph of 12/21/2016. TECHNIQUE: 4 views of the right ribs. FINDINGS: There is no gross pneumothorax. Heart size is within normal limits. Increased streaky opacities in the lower left lung and right perihilar region may represent atelectasis, although pneumonia should also be considered. No gross pleural effusion. No gross displaced right rib fracture is appreciated, although visualization of the lower right ribs is limited due to overlying soft tissues. Advanced degenerative changes in the thoracolumbar spine. XR/XR ribs RT min 3V w CXR1V IMPRESSION: 1. Increased streaky opacities in the lower left lung and right perihilar region may represent atelectasis, although pneumonia should also be considered. Dedicated views of the chest recommended for further evaluation. 2. No gross displaced right rib fracture is appreciated, although visualization of the lower right ribs is limited due to overlying soft tissues.
== END 2023-09-24 08:27 | disposition home or self-care (01) ==
LOC: HO.XRAY 08:26
PROVIDERS: PCP Internal Medicine; Visit Provider Internal Medicine
DX: R07.81 Pleurodynia (principal)
CPT/HCPCS: 71101

== ENCOUNTER 2023-10-11 08:19 | Outpatient (REF) | payer MEDICARE, SELFPAY ==
--- NOTE | ~2023-10-11 | XR_ITS ---
EXAMINATION: XR RIBS, BILATERAL CLINICAL INFORMATION: Follow-up chest radiograph COMPARISON: Right rib radiograph from 09/24/2023 TECHNIQUE: 4 views of the bilateral ribs were obtained. FINDINGS: Streaky opacities of the left lung field may reflect atelectasis versus scarring. Increased radiopacity of the right medial lung base may reflect evolving infectious/inflammatory etiology. Slight prominence of the pulmonary vasculature. No pneumothorax. Trachea is midline. Cardiac mediastinal silhouette is stable. No large pleural effusion. Soft tissues are unremarkable. Degenerative changes of the thoracolumbar spine with levocurvature of the thoracolumbar junction. Suggestion of a nondisplaced fracture of the right lateral 11th rib. XR/XR ribs BI min 4V w CXR1V IMPRESSION: 1. Streaky opacities of the left lung field may reflect atelectasis versus scarring. 2. Increased radiopacity of the right medial lung base may reflect evolving infectious/inflammatory etiology. 3. Slight prominence of the pulmonary vasculature. 4. Suggestion of a nondisplaced fracture of the right lateral 11th rib. Correlation with physical exam.
== END 2023-10-11 08:20 | disposition home or self-care (01) ==
LOC: HO.XRAY 08:19
PROVIDERS: PCP Internal Medicine; Visit Provider Internal Medicine
DX: R93.89 Abnormal findings on diagnostic imaging of other specified body structures (principal)
CPT/HCPCS: 71111

== ENCOUNTER 2023-12-24 08:56 | Outpatient (REF) | payer MEDICARE, SELFPAY ==
--- NOTE | ~2023-12-24 | MM_ITS ---
EXAMINATION: BONE DENSITOMETRY CLINICAL INDICATION: Nontoxic multinodular goiter. COMPARISON: Baseline BD dated 11/21/2021. TECHNIQUE: Using a [employer] DXA System (software version: 13.1) manufactured by [employer], dual-energy x-ray absorptiometry was performed of the lumbar spine, left hip, and left forearm radius 33%. The images are of good technical quality. Summary results are attached. FINDINGS: LEFT FEMUR, NECK: Current: BMD 0.973 g/cm2, Z-score 0.4, T-score -0.5, normal. Baseline: BMD 0.932 g/cm2. LEFT FEMUR, TOTAL: Current: BMD 0.994 g/cm2, Z-score 0.4, T-score -0.1, normal, 0.8% decrease from baseline (<5% change is not significant). Baseline: BMD 1.002 g/cm2. LEFT FOREARM RADIUS 33%: BMD 0.981 g/cm2, Z-score 2.9, T-score 1.2, normal, 0.7% decrease from baseline (<5% change is not significant). Baseline: BMD 0.988 g/cm2. AP SPINE L1-L2 (excluding L3 and L4): The data of L1-L4 has been changed to exclude the L3 and L4 vertebral bodies, because degenerative sclerosis at these levels may cause overestimation of lumbar spine density. Current: BMD 1.210 g/cm2, Z-score 0.9, T-score 0.4, normal, 3.6% decrease from baseline (<5% change is not significant). Baseline: BMD 1.255 g/cm2. IDENTIFIED RISK FACTORS: Menopause, height loss, history of fracture (adult), secondary osteoporosis (hyperthyroidism). HISTORY OF FRACTURE: Other. MEDICATIONS: None listed. MM/XR DEXA appendicular skeleton IMPRESSION: 1. DIAGNOSIS: Normal bone density based on the lowest T-score value of -0.5 in the femoral neck applying World Health Organization criteria. 2. 10-YEAR FRACTURE RISK PREDICTION, FRAX: According to the guidelines, FRAX calculation should only be performed on patients in the osteopenia bone density category. Therefore, FRAX was not performed on this patient. 3. Treatment Recommendations: NOF guidelines recommend consideration for treatment in postmenopausal women and men age 50 and older presenting with the following: -A hip or vertebral (clinical or morphometric) fracture. -T-score less than or equal to -2.5 at the femoral neck or spine after appropriate evaluation to exclude secondary causes. -Low bone mass at the hip or spine and a 10-year fracture probability by FRAX of greater than or equal to 3% for hip fracture or greater than or equal to 20% for major osteoporotic fracture based on the [place] adapted WHO algorithm. 4. Other Recommendations: All treatment decisions require clinical judgment and consideration of individual patient factors, including patient preferences, comorbidities, previous drug use, risk factors not captured in the FRAX model (e.g. frailty, falls, vitamin D deficiency, increased bone turnover, interval significant decline in bone density) and possible under or overestimation of fracture risk by FRAX. FUTURE SCAN RECOMMENDATION: People with diagnosed cases of osteoporosis or at high risk for fracture should have regular bone mineral density tests. For patients eligible for Medicare, routine testing is allowed once every 2 years. The testing frequency can be increased to one year for patients who have rapidly progressing disease, those who are receiving or discontinuing medical therapy to restore bone mass, or have additional risk factors.
== END 2023-12-24 08:57 | disposition home or self-care (01) ==
LOC: HO.MAMMO 08:56
PROVIDERS: PCP Internal Medicine; Visit Provider Internal Medicine Endocrinology, Diabetes & Metabolism
DX: Z13.820 Encounter for screening for osteoporosis (principal); E21.3 Hyperparathyroidism, unspecified; E04.2 Nontoxic multinodular goiter; R29.890 Loss of height; Z78.0 Asymptomatic menopausal state
CPT/HCPCS: 77081

== ENCOUNTER 2024-01-13 07:53 | Outpatient (REF) | payer MEDICARE, SELFPAY ==
--- NOTE | ~2024-01-13 | US_ITS ---
EXAMINATION: US THYROID CLINICAL INFORMATION: Nontoxic multinodular goiter. COMPARISON: Thyroid ultrasound 10/21/2022 and 03/14/2021. Ultrasound-guided thyroid biopsy 08/03/2021. CT soft tissue neck 02/13/2021. TECHNIQUE: Linear transducer dodd-scale and color Doppler examination with attention to the region of the thyroid. FINDINGS: SIZE: Measurements of the thyroid lobes and nodules are given in sagittal, anteroposterior and transverse dimensions respectively. Right Thyroid Lobe: 3.4 x 1.4 x 1.7 cm, volume 4.1 mL. Previously 3.5 x 1.5 x 1.5 cm, volume 4.0 mL. Parenchyma: The gland echotexture is heterogeneous. Thyroid vascularity is normal. Left Thyroid Lobe: 4.6 x 2.2 x 2.2 cm, volume 12.1 mL. Previously 5.0 x 2.1 x 1.5 cm, volume 8.3 mL. Parenchyma: The gland echotexture is heterogeneous. Thyroid vascularity is normal. Isthmus: 0.4 cm in maximum AP dimension. Previously 0.4 cm. Estimated total number of nodules greater than or equal to 1 cm: 1. Hardware Installer nodules are described as follows: 1. Location: Right upper/mid pole. Size: 0.6 x 0.5 x 0.3 cm, volume 0.05 mL. Previously: 0.9 x 0.8 x 0.6 cm, volume 0.2 mL. Nodule characteristics: Composition: Mixed cystic and solid (1). Echogenicity: Hypoechoic (2). Shape: Not taller than wide (0). Margins: Ill-defined (0). Echogenic Foci: Comet-tail artifacts (0). ACR TI-RADS total points: 3 Previous: 4 ACR TI-RADS category: 3 Previous: 4 Significant change in size (>/= 20% in 2 dimensions and minimal increase of 2 mm or 50% or greater increase in volume): Change in features: Change in ACR TI-RADS risk category: 2. Location: Right upper pole. Size: 0.3 x 0.4 x 0.2 cm, volume 0.02 mL. Previously: 0.4 x 0.3 x 0.2 cm, volume 0.01 mL. Nodule characteristics: Composition: Solid/almost completely solid (2). Echogenicity: Hypoechoic (2). Shape: Not taller than wide (0). Margins: Ill-defined (0). Echogenic Foci: None (0). ACR TI-RADS total points: 4 Previous: 4 ACR TI-RADS category: 4 Previous: 4 Significant change in size (>/= 20% in 2 dimensions and minimal increase of 2 mm or 50% or greater increase in volume): Change in features: Change in ACR TI-RADS risk category: 3. Location: Left lower pole. Size: 2.0 x 1.6 x 1.9 cm, volume 3.2 mL. Previously: 1.8 x 1.6 x 1.4 cm, volume 2.2 mL. Nodule characteristics: Composition: Solid/almost completely solid (2). Echogenicity: Isoechoic (1). Shape: Taller than wide (3). Margins: Ill-defined (0). Echogenic Foci: None (0). ACR TI-RADS total points: 6 Previous: 3 ACR TI-RADS category: 4 Previous: 3 Significant change in size (>/= 20% in 2 dimensions and minimal increase of 2 mm or 50% or greater increase in volume): Yes Change in features: No Change in ACR TI-RADS risk category: Yes NODES: No lymphadenopathy is seen in the tissue surrounding the thyroid gland. US/US thyroid IMPRESSION: 2.0 cm left lower pole TR4 thyroid nodule meets criteria for biopsy. Fine-needle aspiration recommended. This study was presented today, 01/14/2024 at 9:00 AM, for interpretation. PSA staff will provide results to referring provider at this time. ACR TI-RADS RECOMMENDATION REFERENCE: Ultrasound-guided fine-needle aspiration, follow up ultrasound, no further followup. * TR1 (0 point) and TR2 (2 points): No FNA or followup * TR3 (3 points): FNA if more than or equal to 2.5 cm in maximum dimension, follow up ultrasound in 1, 3 and 5 years if 1.5 to 2.4 cm in maximum dimension. * TR4 (4-6 points): FNA if more than or equal to 1.5 cm in maximum dimension, follow up ultrasound in 1, 2, 3 and 5 years if 1 to 1.4 cm in maximum dimension. * TR5 (more than or equal to 7 points): FNA if more than or equal to 1 cm in maximum dimension, follow up ultrasound every year for 5 years if 0.5 to 0.9 cm in maximum dimension. * TR3, TR4 or TR5 nodules that are below the size threshold for follow up receive no followup.
== END 2024-01-13 07:54 | disposition home or self-care (01) ==
LOC: HO.US 07:53
PROVIDERS: PCP Internal Medicine; Visit Provider Internal Medicine Endocrinology, Diabetes & Metabolism
DX: E04.2 Nontoxic multinodular goiter (principal); E21.3 Hyperparathyroidism, unspecified
CPT/HCPCS: 76536

== ENCOUNTER 2024-01-20 07:47 | Outpatient (REF) | payer MEDICARE, SELFPAY ==
[2024-01-20 08:45] LABS: Calcium 9.8 mg/dL (8.4-10.2); Estimated Glomerular Filt Rate 55
== END 2024-01-20 07:48 | disposition home or self-care (01) ==
LOC: HO.LAB 07:47
PROVIDERS: PCP Internal Medicine; Visit Provider Internal Medicine Endocrinology, Diabetes & Metabolism
DX: E21.3 Hyperparathyroidism, unspecified (principal)
CPT/HCPCS: 36415; 82040; 82310; 82565

== ENCOUNTER 2024-01-21 13:22 | Outpatient (AMB) | payer MEDICARE, SELFPAY ==
[2024-01-21 13:33] VITALS: BP 134/72; PULSE 84; BMI 41.9
--- NOTE | 2024-01-21 13:33 | MHC.OFFVIS ---
Intake Vital Signs 01/21/24 13:33 Height 5 ft 5 in Weight 251 lb 15.814 oz BMI 41.9 BP 134/72 Blood Pressure Location Lt brachial Position Sitting Pulse 84 Pulse Source Pulse Oximeter Intake Visit Reasons: Multinodular thyroid-confirmed Intake Note: Patient present today for multinodular thyroid follow up visit. 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 Patient last saw Dr. Cool on 08/20 Was initially diagnosed with a multinodular thyroid in February 2021 with a thyroid US revealing multiple bilateral nodules, including a 1.9 cm LLP nodule. This also revealed a 1.2 cm exophytic lesion posterior to the L lobe which apepared to represent a lymph node. She presented 07/05/2021 for FNA biopsy, but was unable to tolerate this due to extreme anxiety. Procedure was aborted and she was to be scheduled with IR for FNA under conscious sedation. She underwent FNA biopsy by Dr. Berrios 08/03/2021 of a LLP 1.9 cm thyroid nodule, with benign cytology. The 1.2 cm lesion posterior to the L lobe of the thyroid was also biopsied, with cytology indeterminate, but suspicious for parathyroid cells. There was no malignancy identified. We did check labs after this and they revealed hyperparathyroidism 09/01/2021 Calcium 10.0, Albumin 4.3, PTH 91 and Vitamin D 60.1. She had a DEXA scan 11/21/2021 which was WNL including the distal forearm. She does mention some pressure sensation in her neck, but denies any other compressive symptoms. Mentions weight gain and hair loss and fatigue. Denies any history of head or neck irradiation. Denies any family history of thyroid cancer. DEXA: 11/21/2021 FINDINGS: AP SPINE L1-L2 (excluding L3 and L4): The data of L1-L4 has been changed to exclude the L3 and L4 vertebral bodies, because degenerative changes at these levels may cause overestimation of lumbar spine density. BMD 1.255 g/cm2, Z-score 1.2, T-score 0.8, normal. LEFT FEMUR, NECK: BMD 0.932 g/cm2, Z-score 0.0, T-score -0.8, normal. LEFT FEMUR, TOTAL: BMD 1.002 g/cm2, Z-score 0.4, T-score 0.0, normal. LEFT FOREARM RADIUS 33%: BMD 0.988 g/cm2, Z-score 2.8, T-score 1.3, normal. Thyroid US 03/14/2021: Right Thyroid Lobe: 3.48 x 1.51 x 1.40 cm, volume 3.85 mL. Parenchyma: The gland echotexture is heterogeneous. Thyroid vascularity is normal. Left Thyroid Lobe: 4.23 x 1.85 x 1.49 cm, volume 6.12 mL. Parenchyma: The gland echotexture is heterogeneous. Thyroid vascularity is normal. Isthmus: 0.46 cm in maximum AP dimension. Estimated total number of nodules greater than or equal to 1 cm: 1. 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 Location: Right upper. Size: 0.78 x 0.61 x 0.84 cm, volume 0.21 mL. Nodule characteristics: Composition: Spongiform (0). Echogenicity: 0 Shape: 0 Margins: 0 Echogenic Foci: 0 ACR TI-RADS total points: 0 ACR TI-RADS category: 1 2. Location: Left lower pole. Size: 1.9 x 1.6 x 1.7 cm, volume 2.7 mL. Nodule characteristics: Composition: Solid/almost completely solid (2). Echogenicity: Hyperechoic (1). Shape: Not taller than wide (0). Margins: Smooth (0). Echogenic Foci: Punctate echogenic foci (3). ACR TI-RADS total points: 6 ACR TI-RADS category: 4 3. Location: Left midpole. Size: 0.40 x 0.31 x 0.44 cm, volume 0.03 mL. Nodule characteristics: Composition: Cystic(0). ACR TI-RADS total points: 0 ACR TI-RADS category: 1 NODES: There is a 1.2 x 0.7 x 0.7 cm hypoechoic lesion exophytic to the posterior lower pole of the left lobe. This appears solid and avascular. This may represent a lymph node. Labs: Laboratory Tests 09/01/21 09/01/21 10/06/21 07:24 07:24 08:07 Calcium 10.2 D Albumin 4.3 25-OH Vitamin D To henrique 60.1 TSH 1.67 Free T4 1.13 DHEA Sulfate 151 H PTH Intact 91 H 75 H Calcium (PTH Intac t) 10.0 10.1 recent thyroid ultrasound showed no change in the size of the left lower pole nodule but changing characteristics increasing T-RADds PFSH Medical History Transaminitis Hyperparathyroidism Morbid obesity Multinodular thyroid Breast mass Shortness of breath Laryngeal disorder Thyroid nodule Submandibular swelling Hypovitaminosis D Neck mass Neck pain Lymphadenopathy Essential hypertension Surgical History H/O colonoscopy History of laparoscopy History of D&C History of removal of cyst History of appendectomy History of tonsillectomy Family History Father Hypertension Prostate cancer Mother Hypertension Diabetes Dementia Social History Household Members Other:: lives alone Housing: Apartment Alcohol intake: current Alcohol intake frequency: holidays/special occasions only Alcohol type: wine and hard liquor Patient Tobacco Use Status: Never used Tobacco e-Cigarette/Vaping Use: Never Used Second Hand Smoke Exposure: Yes service: No Current occupational status: retired Current occupation: Works -nights- [employer] Current occupational exposures/hazards: No Cognitive needs: No Hearing needs: No Vision needs: Yes Female Reproductive History Menstrual Age of Menarche: 18 Physical Exam Const Other: Thyroid gland is normal size weighs about 15 g . There are no palpable thyroid nodule Assessment & Plan Assessment & Plan (1) Multinodular thyroid: Code(s): E04.2 - Nontoxic multinodular goiter Plan: 68-year-old white female with a history of multinodular goiter status post FNA of left lower pole nodule with benign cytology recent ultrasound showing no change in the size of the nodule but changing characteristics increasing T-rads We discussed different options including observation of the nodule versus reaspiration versus lobectomy. At this point, patient would like to observe not have reaspiration of possible. I also suggested possible referral for 2nd opinion per insurance only allows her to go to [facility] for 2nd opinion and not accepting referrals. She still has low risk for malignancy considering she had a good biopsy that was benign in 2020 (2) Hyperparathyroidism: Code(s): E21.3 - Hyperparathyroidism, unspecified Plan: Currently off vitamin-D. Told patient to resume the vitamin-D and to recheck calcium, albumin, PTH, 25 hydroxy vitamin-D as well as 24 hour urine for calcium and creatinine in about 6 weeks . Orders: Orders Calcium, 24 Hr Ur Today E04.2 - Nontoxic multinodular goiter, E21.3 - Hyperparathyroidism, unspecified Creatinine, 24 Hr Group Today E04.2 - Nontoxic multinodular goiter, E21.3 - Hyperparathyroidism, unspecified Calcium Today E04.2 - Nontoxic multinodular goiter, E21.3 - Hyperparathyroidism, unspecified Albumin Level Today E04.2 - Nontoxic multinodular goiter, E21.3 - Hyperparathyroidism, unspecified Free T4 (Free Thyroxine) Today E04.2 - Nontoxic multinodular goiter, E21.3 - Hyperparathyroidism, unspecified Thyroid Stimulating Hormone Today E04.2 - Nontoxic multinodular goiter, E21.3 - Hyperparathyroidism, unspecified Parathyroid Hormone Intact Today E04.2 - Nontoxic multinodular goiter, E21.3 - Hyperparathyroidism, unspecified Vitamin D 25-OH Total Today E04.2 - Nontoxic multinodular goiter, E21.3 - Hyperparathyroidism, unspecified Coding Level of Care Code Est Pt Level 3 (61013) Diagnoses Multinodular thyroid E04.2 Hyperparathyroidism E21.3
== END 2024-01-21 14:21 | disposition home or self-care (01) ==
PROVIDERS: PCP Internal Medicine; Visit Provider Internal Medicine Endocrinology, Diabetes & Metabolism
DX: E04.2 Nontoxic multinodular goiter (principal); E21.3 Hyperparathyroidism, unspecified
CPT/HCPCS: 99213

== ENCOUNTER → 2024-01-21 13:22 | Outpatient (BNVA) | payer MEDICARE, SELFPAY | PROVIDERS: PCP Internal Medicine; Visit Provider Internal Medicine Endocrinology, Diabetes & Metabolism | DX: E04.2 Nontoxic multinodular goiter (principal); E21.3 Hyperparathyroidism, unspecified | CPT/HCPCS: 99212 ==

== ENCOUNTER 2024-03-19 07:34 | Outpatient (REF) | payer MEDICARE, SELFPAY ==
--- NOTE | ~2024-03-19 | MM_ITS ---
EXAMINATION: MM SCREENING DIGITAL BREAST TOMOSYNTHESIS, BILATERAL CLINICAL INFORMATION: Screening. Asymptomatic. Patient is status post surgery to site left stereotactic biopsy for calcifications which yielded benign results. COMPARISON: Mammography: This study is compared with prior exams dating back to 2020. TECHNIQUE: Digital breast tomosynthesis is performed in both the craniocaudal and mediolateral oblique views along with computer-aided detection (CAD). Synthesized 2D images are generated from the tomosynthesis. FINDINGS: There are scattered areas of fibroglandular density (ACR BI-RADS breast composition Category b). There are no significant masses, abnormal calcifications, or other abnormalities. There are 2 tissue markers in the superior aspect of the left breast from prior benign stereotactic biopsies. There are bilateral benign calcifications. MM/MM tomosynthesis screening BI IMPRESSION: No mammographic evidence of malignancy. ASSESSMENT: BI-RADS BI-RADS 2 - Benign Findings RECOMMENDATION: Routine annual mammography screening. 1 year F/U This examination should not preclude the clinical evaluation of a suspicious palpable abnormality. This patient's information was entered into a reminder system with a target due date for their next mammogram.
== END 2024-03-19 07:35 | disposition home or self-care (01) ==
LOC: HO.MAMMO 07:34
PROVIDERS: PCP Internal Medicine; Visit Provider Internal Medicine
DX: Z12.31 Encounter for screening mammogram for malignant neoplasm of breast (principal)
CPT/HCPCS: 77063; 77067

== ENCOUNTER → 2024-03-19 07:45 | Outpatient (BNV) | payer MEDICARE, SELFPAY | PROVIDERS: PCP Internal Medicine; Visit Provider Radiology Diagnostic Radiology | DX: Z12.31 Encounter for screening mammogram for malignant neoplasm of breast (principal) | CPT/HCPCS: 77063; 77067 ==

== ENCOUNTER 2024-06-03 08:02 | Outpatient (AMB) | payer MEDICARE, SELFPAY ==
--- NOTE | 2024-06-03 08:19 | A.OFFPC_ITS ---
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 by: Self / Same As Patient Allergies amoxicillin Allergy (Intermediate, Verified 06/03/24 08:33) diarrhea dicyclomine Allergy (Intermediate, Verified 06/03/24 08:33) BP spike Medication List - Last Reconciled 06/03/24 by Leticia Grayson MD losartan-hydrochlorothiazide 50-12.5 mg 1 tab PO DAILY nifedipine ER 60 mg PO DAILY Tobacco use date assessed: 06/03/24 Fall risk assessment: No Falls in past year Last assessed Fall Risk: 06/03/24 Dental Screening Dental Screen Date: 06/03/24 Did you have a dental visit in the last 12 months?: No Did you have a dental problem in the last 6 months where you did not have access to dental care?: No Was dental information given to patient?: Patient has dentist HPI HPI Comments History of Present Illness Details This is a 69-year-old female with hypertension, morbid obesity and hyperparathyroidism that complains of neck pain that started about 2 months ago with no previous trauma. The pain is relieved by heat and pressure and aggravated when doing lateral neck movements and more when looking to the left. I will order x-ray and refer her to physical therapy. Blood pressure stable. She is morbidly obese with a BMI of 41.1 and declines weight loss surgery. Has elevated parathyroid that is follow by Endocrinology which she has an appointment next week. She does not want to do 24 hour urine collection because it is gross for her to put a urine in the fridge. [facility] Medical History (Updated 06/03/24 @ 08:44 by Leticia Grayson MD) Transaminitis Hyperparathyroidism Morbid obesity Multinodular thyroid Breast mass Shortness of breath Laryngeal disorder Thyroid nodule Submandibular swelling Hypovitaminosis D Neck mass Neck pain Lymphadenopathy Essential hypertension Surgical History H/O colonoscopy History of laparoscopy History of D&C History of removal of cyst History of appendectomy History of tonsillectomy Family History Father Hypertension Prostate cancer Mother Hypertension Diabetes Dementia Social History Household Members Other:: lives alone Housing: Apartment Alcohol intake: current Alcohol intake frequency: holidays/special occasions only Alcohol type: wine and hard liquor Patient Tobacco Use Status: Never used Tobacco e-Cigarette/Vaping Use: Never Used Second Hand Smoke Exposure: Yes service: No Current occupational status: retired Current occupation: [employer] Current occupational exposures/hazards: No Cognitive needs: No Hearing needs: No Vision needs: Yes Female Reproductive History Menstrual Age of Menarche: 18 Questionnaire PHQ-9 Over the last 2 weeks, how often have you been bothered by any of the following problems? 1. Little interest or pleasure in doing things: not at all 2. Feeling down, depressed, or hopeless: not at all 3. Trouble falling or staying asleep, or sleeping too much: several days 4. Feeling tired or having little energy: nearly every day 5. Poor appetite or overeating: not at all 6. Feeling bad about yourself - or that you are a failure or have let yourself or your family down: not at all 7. Trouble concentrating on things, such as reading the newspaper or watching television: not at all 8. Moving or speaking so slowly that other people could have noticed. Or the opposite - being so fidgety or restless that you have been moving around a lot more than usual: not at all 9. Thoughts that you would be better off or of hurting yourself in some way: not at all Total score: 4 Depression Screening Interpretation: Positive Depression Screening Follow-up: Existing condition and Follow-up Visit Requested Depression Screening Done: Yes [id number] - PHQ-9 Billing: Yes Source: Developed by Drs. Jose Kenny, Janee Self, Husam Asher and colleagues, with an educational jennifer from [employer]. Thrive Questionnaire Date Thrive assessed: 06/03/24 I am a: Patient What is your living situation today?: I have a steady place to live Within the past 12 months, did the food you bought not last and you didn't have the money to get more?: Never true Within the past 12 months, did you worry whether your food would run out before you got money to buy more?: Never true Do you have trouble paying for medicines?: No Do you have trouble getting transportation to medical appointments?: No Do you have trouble paying your heating and electricity bill?: No Do you have trouble taking care of your child, family member or friend?: No Do you have trouble with day-to-day activities such as bathing, preparing meals, shopping, managing finances, etc.?: No Are you currently unemployed and looking for a job?: No Are you interested in more education?: No Please select the resources that you would like help with: None Currently or been in a relationship where the following occur: No concerns reported THRIVE Score: 0 AUDIT C Alcohol Use Questionnaire (AUDIT-C) 1. How often do you have a drink containing alcohol?: Monthly or less 2. How many drinks containing alcohol do you have on a typical day when you are drinking?: 1 or 2 3. How often do you have six or more drinks on one occasion?: Never Total Score: 1 ARIEL-7 AMB Questionnaire ARIEL-7 Date ARIEL - 7 assessed: 06/03/24 Feeling nervous, anxious, or on edge: 0 = Not at all Not being able to stop or control worryin = Not at all Worrying too much about different things: 0 = Not at all Trouble relaxin = Not at all Being so restless that it is hard to sit still: 0 = Not at all Becoming easily annoyed or irritable: 0 = Not at all Feeling afraid as if something awful might happen: 0 = Not at all Total ARIEL-7 score (0-4 normal; 5-9 mild; 10-14 moderate; 15-21 severe): 0 Source: Developed by Drs. Jose Kenny, Janee Self, Husam Asher and colleagues, with an educational jennifer from [employer]. ARIEL-7 Assessment Billing ARIEL-7 Assessment Tool: ARIEL-7 Assessment 82045 Review of Systems Const All systems reviewed & are unremarkable except as noted in HPI and below ENT Reports neck pain Card Denies chest pain at rest, Denies chest pain with activity, Denies edema, Denies irregular heart rhythm, Denies claudication, Denies dyspnea, Denies dyspnea on exertion, Denies orthopnea, Denies paroxysmal nocturnal dyspnea and Denies slow heart rate Resp Denies cough, Denies dyspnea and Denies dyspnea on exertion GI Denies abdominal pain, Denies change in bowel habits, Denies excessive flatus, Denies nausea and Denies vomiting Musc Reports neck pain Physical exam (Primary Care) Vital Signs: Last Vital Signs BP 130/82 06/03/24 08:26 BMI result Body Mass Index 41.1 BMI Assessment/Plan discussion: High BMI High, discussed plan: lifestyle, weight reduction, dietary and physical activity Tobacco/Smoking Status: Tobacco use Status Tobacco use date assessed 06/03/24 06/03/24 08:30 Patient Tobacco Use Status Never used Tobacco 06/03/24 08:21 e-Cigarette/Vaping Use Never Used 06/03/24 08:21 PHQ-9: PHQ-9 Score PHQ-9: Total score 4 06/03/24 08:35 Depression Screening Interpretation: Positive Depression Screening Follow-up: Existing condition and Follow-up Visit Requested Thrive Assessment: Date of Thrive Assessment Date Thrive assessed 06/03/24 06/03/24 08:30 Currently or been in a relationship where the following occur: No concerns reported Resp Effort & Inspection: normal respiratory effort Auscultation: clear to auscultation bilaterally Cardio Jugular venous distension: no JVD Rate: regular rate Rhythm: regular rhythm Heart sounds: S1 normal heart sound present and S2 normal heart sound present Extrem General: Yes full ROM Assessment and Plan Assessment & Plan (1) Neck pain: Code(s): M54.2 - Cervicalgia Plan: X-ray ordered. Start physical therapy. (2) Hyperparathyroidism: Code(s): E21.3 - Hyperparathyroidism, unspecified Plan: Follow-up with endocrinology. (3) Morbid obesity: Code(s): E66.01 - Morbid (severe) obesity due to excess calories Plan: Advised to start diet and exercise. BMI goal is less than 30. (4) Essential hypertension: Code(s): I10 - Essential (primary) hypertension Plan: Continue losartan-hydrochlorothiazide and nifedipine. Blood pressure goal is equal or less than 130/80. Orders: Orders XR cervical spine 2V Today M54.2 - Cervicalgia PT Evaluation and Treatment Today M54.2 - Cervicalgia Albumin Level Today E21.3 - Hyperparathyroidism, unspecified Comprehensive [place]. Panel Fast Today E21.3 - Hyperparathyroidism, unspecified Calcium, Random Urine Today E21.3 - Hyperparathyroidism, unspecified Creatinine Urine Today E21.3 - Hyperparathyroidism, unspecified Thyroid Stimulating Hormone Today E04.2 - Nontoxic multinodular goiter Lipid Panel Today E78.5 - Hyperlipidemia, unspecified, I10 - Essential (primary) hypertension Calcium, Ionized Today E21.3 - Hyperparathyroidism, unspecified Parathyroid Hormone Intact Today E21.3 - Hyperparathyroidism, unspecified Vitamin D 25-OH Total Today E55.9 - Vitamin D deficiency, unspecified Free T4 (Free Thyroxine) Today E04.2 - Nontoxic multinodular goiter Referrals Cologuard Test Z12.11 - Encounter for screening for malignant neoplasm of colon, Z12.12 - Encounter for screening for malignant neoplasm of rectum Coding Level of Care Code Est Pt Level 4 (62106) Complex EM visit Add On G2211 Diagnoses Neck pain M54.2 Hyperparathyroidism E21.3 Morbid obesity E66.01 Essential hypertension I10 Additional Codes ARIEL-7 Assessment Billing - ARIEL-7 Assessment Tool: ARIEL-7 Assessment 45729 ([id number]) Time Spent (min) 25
[2024-06-03 08:26] VITALS: BP 130/82; BMI 41.1
== END 2024-06-03 08:57 | disposition home or self-care (01) ==
PROVIDERS: PCP Internal Medicine; Visit Provider Internal Medicine
DX: M54.2 Cervicalgia (principal); E21.3 Hyperparathyroidism, unspecified; E66.01 Morbid (severe) obesity due to excess calories; Z68.41 Body mass index [BMI] 40.0-44.9, adult; I10 Essential (primary) hypertension
CPT/HCPCS: 99214; G2211

== ENCOUNTER 2024-06-05 07:16 | Outpatient (REF) | payer MEDICARE, SELFPAY ==
[2024-06-05 08:48] LABS: Alanine Aminotransferase 35 U/L (0-31); Albumin Level 4.1 g/dL (3.5-5.0); Alkaline Phosphatase 77 U/L (39-117); Anion Gap 14 (12-20); Aspartate Amino Transferase 35 U/L (5-31); Bilirubin Total 0.5 mg/dL (0.0-1.0); Blood Urea Nitrogen 15 mg/dL (9-16); Calcium 9.8 mg/dL (8.4-10.2); Carbon Dioxide 28 mmol/L (22-29); Chloride 104 mmol/L (96-108); Cholesterol 210 mg/dL (<200); Estimated Glomerular Filt Rate 47; Glucose Fasting 106 mg/dL (60-99); HDL Cholesterol 53 mg/dL (>40); LDL Cholesterol Calculated 128 mg/dL (<100); Phosphorus 2.2 mg/dL (2.7-4.5); Potassium 3.8 mmol/L (3.3-5.1); Sodium 142 mmol/L (135-145); Total Protein 7.6 g/dL (6.5-8.0); Triglycerides 146 mg/dL (<150)
[2024-06-05 09:04] LABS: Free T4 (Free Thyroxine) 1.01 ng/dL (0.71-1.85); Thyroid Stimulating Hormone 1.26 uIU/mL (0.32-4.0); Vitamin D 25-OH Total 31.6 ng/mL (>30)
[2024-06-05 09:08] LABS: Free T4 (Free Thyroxine) 0.98 ng/dL (0.71-1.85); Thyroid Stimulating Hormone 1.25 uIU/mL (0.32-4.0); Vitamin D 25-OH Total 31.6 ng/mL (>30)
[2024-06-05 10:09] LABS: Parathyroid Hormone Intact 150.2 pg/mL (8.7-77.1)
[2024-06-05 11:27] LABS: Parathyroid Hormone Intact 155.4 pg/mL (8.7-77.1)
[2024-06-08 14:54] LABS: Calcium, Ionized 5.2 mg/dL (4.7-5.5)
== END 2024-06-05 07:17 | disposition home or self-care (01) ==
LOC: HO.LAB 07:16
PROVIDERS: Absent Provider Internal Medicine; PCP Internal Medicine; Visit Provider Internal Medicine Endocrinology, Diabetes & Metabolism
DX: E04.2 Nontoxic multinodular goiter (principal); E21.3 Hyperparathyroidism, unspecified; E78.5 Hyperlipidemia, unspecified; I10 Essential (primary) hypertension; E55.9 Vitamin D deficiency, unspecified
CPT/HCPCS: 36415; 80053; 80061; 82040; 82306; 82330; 83970; 84100; 84439; 84443

== ENCOUNTER 2024-06-07 08:22 | Outpatient (AMB) | payer MEDICARE, SELFPAY ==
[2024-06-07 08:27] VITALS: BP 142/80; PULSE 104; BMI 41.9
--- NOTE | 2024-06-07 08:27 | A.OFFVIS_ITS ---
Vital Signs 06/07/24 08:27 Height 5 ft 5 in Weight 251 lb 15.814 oz BMI 41.9 BP 142/80 H Blood Pressure Location Lt brachial Position Sitting Pulse 104 H Pulse Source Pulse Oximeter Intake Visit Reasons: f/u thyroid nodule/ hyperparathyroidism-confirmed Intake Note: Patient present today for thyroid nodule/hyperthyroidism follow up visit. 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 Was initially diagnosed with a multinodular thyroid in February 2021 with a thyroid US revealing multiple bilateral nodules, including a 1.9 cm LLP nodule. This also revealed a 1.2 cm exophytic lesion posterior to the L lobe which apepared to represent a lymph node. She presented 07/05/2021 for FNA biopsy, but was unable to tolerate this due to extreme anxiety. Procedure was aborted and she was to be scheduled with IR for FNA under conscious sedation. She underwent FNA biopsy by Dr. Berrios 08/03/2021 of a LLP 1.9 cm thyroid nodule, with benign cytology. The 1.2 cm lesion posterior to the L lobe of the thyroid was also biopsied, with cytology indeterminate, but suspicious for parathyroid cells. There was no malignancy identified. We did check labs after this and they revealed hyperparathyroidism 09/01/2021 Calcium 10.0, Albumin 4.3, PTH 91 and Vitamin D 60.1. She had a DEXA scan 11/21/2021 which was WNL including the distal forearm. She does mention some pressure sensation in her neck, but denies any other compressive symptoms. Mentions weight gain and hair loss and fatigue. Denies any history of head or neck irradiation. Denies any family history of thyroid cancer. DEXA: 11/21/2021 FINDINGS: AP SPINE L1-L2 (excluding L3 and L4): The data of L1-L4 has been changed to exclude the L3 and L4 vertebral bodies, because degenerative changes at these levels may cause overestimation of lumbar spine density. BMD 1.255 g/cm2, Z-score 1.2, T-score 0.8, normal. LEFT FEMUR, NECK: BMD 0.932 g/cm2, Z-score 0.0, T-score -0.8, normal. LEFT FEMUR, TOTAL: BMD 1.002 g/cm2, Z-score 0.4, T-score 0.0, normal. LEFT FOREARM RADIUS 33%: BMD 0.988 g/cm2, Z-score 2.8, T-score 1.3, normal. Thyroid US 03/14/2021: Right Thyroid Lobe: 3.48 x 1.51 x 1.40 cm, volume 3.85 mL. Parenchyma: The gland echotexture is heterogeneous. Thyroid vascularity is normal. Left Thyroid Lobe: 4.23 x 1.85 x 1.49 cm, volume 6.12 mL. Parenchyma: The gland echotexture is heterogeneous. Thyroid vascularity is normal. Isthmus: 0.46 cm in maximum AP dimension. Estimated total number of nodules greater than or equal to 1 cm: 1. Master Data Analyst nodules are described as follows: 1. Location: Right upper. Size: 0.78 x 0.61 x 0.84 cm, volume 0.21 mL. Nodule characteristics: Composition: Spongiform (0). Echogenicity: 0 Shape: 0 Margins: 0 Echogenic Foci: 0 ACR TI-RADS total points: 0 ACR TI-RADS category: 1 2. Location: Left lower pole. Size: 1.9 x 1.6 x 1.7 cm, volume 2.7 mL. Nodule characteristics: Composition: Solid/almost completely solid (2). Echogenicity: Hyperechoic (1). Shape: Not taller than wide (0). Margins: Smooth (0). Echogenic Foci: Punctate echogenic foci (3). ACR TI-RADS total points: 6 ACR TI-RADS category: 4 3. Location: Left midpole. Size: 0.40 x 0.31 x 0.44 cm, volume 0.03 mL. Nodule characteristics: Composition: Cystic(0). ACR TI-RADS total points: 0 ACR TI-RADS category: 1 NODES: There is a 1.2 x 0.7 x 0.7 cm hypoechoic lesion exophytic to the posterior lower pole of the left lobe. This appears solid and avascular. This may represent a lymph node. Labs: Laboratory Tests 09/01/21 09/01/21 10/06/21 07:24 07:24 08:07 Calcium 10.2 D Albumin 4.3 25-OH Vitamin D Total 60.1 TSH 1.67 Free T4 1.13 DHEA Sulfate 151 H PTH Intact 91 H 75 H Calcium (PTH Intact) 10.0 10.1 recent thyroid ultrasound showed no change in the size of the left lower pole nodule but changing characteristics increasing T-RADds Currently on vitamin D3 1000 IU/day [facility] Medical History Transaminitis Hyperparathyroidism Morbid obesity Multinodular thyroid Breast mass Shortness of breath Laryngeal disorder Thyroid nodule Submandibular swelling Hypovitaminosis D Neck mass Neck pain Lymphadenopathy Essential hypertension Surgical History H/O colonoscopy History of laparoscopy History of D&C History of removal of cyst History of appendectomy History of tonsillectomy Family History Father Hypertension Prostate cancer Mother Hypertension Diabetes Dementia Social History Household Members Other:: lives alone Housing: Apartment Alcohol intake: current Alcohol intake frequency: holidays/special occasions only Alcohol type: wine and hard liquor Patient Tobacco Use Status: Never used Tobacco e-Cigarette/Vaping Use: Never Used Second Hand Smoke Exposure: Yes service: No Current occupational status: retired Current occupation: Works -nights- [employer] Current occupational exposures/hazards: No Cognitive needs: No Hearing needs: No Vision needs: Yes Female Reproductive History Menstrual Age of Menarche: 18 Physical Exam Vital Signs: Last Vital Signs Pulse 104 H 06/07/24 08:27 BP 142/80 H 06/07/24 08:27 BMI result Body Mass Index 41.9 Const Other: Thyroid gland is normal size weighs about 15 g . There are no palpable thyroid nodule Assessment & Plan Assessment & Plan (1) Multinodular thyroid: Code(s): E04.2 - Nontoxic multinodular goiter Category: Medical Plan: 68-year-old white female with a history of multinodular goiter status post FNA of left lower pole nodule with benign cytology recent ultrasound showing no change in the size of the nodule but changing characteristics increasing T-rads The plan is to have the patient follow up with Dr. Johnson manager technical support starting in June 2024 here with expertise in thyroid ultrasound to determine if repeat biopsy of the left lower pole nodule is necessary. She still has low risk for malignancy considering she had a good biopsy that was benign in 2020 (2) Hyperparathyroidism: Code(s): E21.3 - Hyperparathyroidism, unspecified Category: Medical Plan: Currently on vitamin-D. Will message primary care provider about stopping the hydrochlorothiazide and following the patient's hypertension and rechecking calcium albumin PTH, 25 hydroxy vitamin-D about 2 months off the hydrochlorothiazide Coding Level of Care Code Est Pt Level 3 (67537) Diagnoses Multinodular thyroid E04.2 Hyperparathyroidism E21.3
== END 2024-06-07 08:53 | disposition home or self-care (01) ==
PROVIDERS: PCP Internal Medicine; Visit Provider Internal Medicine Endocrinology, Diabetes & Metabolism
DX: E04.2 Nontoxic multinodular goiter (principal); E21.3 Hyperparathyroidism, unspecified
CPT/HCPCS: 99213

== ENCOUNTER → 2024-06-07 08:22 | Outpatient (BNVA) | payer MEDICARE, SELFPAY | PROVIDERS: PCP Internal Medicine; Visit Provider Internal Medicine Endocrinology, Diabetes & Metabolism | DX: E04.2 Nontoxic multinodular goiter (principal); E21.3 Hyperparathyroidism, unspecified | CPT/HCPCS: 99212 ==

== ENCOUNTER 2024-06-19 07:07 | Outpatient (REF) | payer MEDICARE, SELFPAY ==
--- NOTE | ~2024-06-19 | XR_ITS ---
EXAMINATION: XR CERVICAL SPINE CLINICAL INFORMATION: Pain COMPARISON: None available. TECHNIQUE: 3 views of the cervical spine were obtained. FINDINGS: There are no prevertebral soft tissue or bony abnormalities demonstrated. No compression fractures or subluxations are identified. Alignment is maintained at the atlanto-axial articulation. The disc spaces are preserved with narrowing of C6-C7 and C7-T1 with marginal spurring. There is facets arthropathy on the multiple levels.. No endplate changes are seen. The prevertebral soft tissues are normal. The foramina are patent. XR/XR cervical spine 3V IMPRESSION: Mild degenerative changes without evidence of spondylolisthesis
== END 2024-06-19 07:08 | disposition home or self-care (01) ==
LOC: HO.XRAY 07:07
PROVIDERS: PCP Internal Medicine; Visit Provider Internal Medicine
DX: M54.2 Cervicalgia (principal)
CPT/HCPCS: 72040

== ENCOUNTER 2024-07-27 10:46 | Outpatient (AMB) | payer MEDICARE, SELFPAY ==
[2024-07-27 10:50] VITALS: BP 170/96; PULSE 97; BMI 41.8
--- NOTE | 2024-07-27 10:50 | A.OFFVIS_ITS ---
Vital Signs 3 07/27/24 10:50 07/27/24 12:05 Height 5 ft 5 in Weight 251 lb 1.704 oz BMI 41.8 BP 170/96 H 160/95 H Blood Pressure Location Rt brachial Lt brachial Position Sitting Pulse 97 Pulse Source Pulse Oximeter Intake Visit Reasons: thyroid nodule/ hyperparathyroidism-lvm Intake Note: Patient present today for thyroid nodule/ hyperparathyroidism follow up visit. 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 Cool and then Dr. Mills, Last visit 06/09. left sided maxillary pain/ swelling for 3 days. no pain in ears. No cough, no flu symptoms. No fever. MNG HPI from prior visit Was initially diagnosed with a multinodular thyroid in February 2021 with a thyroid US revealing multiple bilateral nodules, including a 1.9 cm LLP nodule. This also revealed a 1.2 cm exophytic lesion posterior to the L lobe which apepared to represent a lymph node. 07/05/2021 for FNA biopsy, but was unable to tolerate this due to extreme anxiety. Procedure was aborted and she was to be scheduled with IR for FNA under conscious sedation. FNA biopsy by Dr. Berrios 08/03/2021 of a LLP 1.9 cm thyroid nodule, with benign cytology. The 1.2 cm lesion posterior to the L lobe of the thyroid was also biopsied, with cytology indeterminate, but suspicious for parathyroid cells. There was no malignancy identified. No trouble swallowing, no difficulty breathing, no changes in voice. Sometimes at night feels gasping for air but has sleep apnea, doesnt wear CPAP. No symptoms of hyperthyroidism or hypothyrodism. Denies any history of head or neck irradiation. Denies any family history of thyroid cancer. Hyperparathyroidism labs revealed hyperparathyroidism 09/01/2021 Calcium 10.0, Albumin 4.3, PTH 91 and Vitamin D 60.1. She had a DEXA scan 11/21/2021 which was WNL including the distal forearm. Most recent DEXA 01/10 showed normal bone density but no foraerm. She fractured a rib 10/09 from a sneezing episode. No other recent fractures, broke left leg at 2 years of age fall from monkey bar No kidney stones, no blood in urine No constipation, sometimes gets loose stools, not too often , no increased urination, no brain fog, no abd pain regularly sometimes intermittent right abd pain but has cholelithiaisis Was previoulsy on HCTZ but off at least since 06/09 No family history of kidney stones, calcium problems Taking vitamin D 1000 units daily, no calcium supplements No milk, does have cheese 3-4 times a week, yogurt very few times Physical exam General: sitting comfortably in no acute distress HEENT: normocephalic/atraumatic,, moist oral mucosa Neck: supple, symmetrical, no thyromegaly , no dorsocervical or supraclavicular fat pads Cardiac: normal heart sounds Pulm: normal breath sounds B/L, no added breath sounds Abd: not distended, no tenderness Extremities: no edema, no signs of myxedema PFSH Medical History Transaminitis Hyperparathyroidism Morbid obesity Multinodular thyroid Breast mass Shortness of breath Laryngeal disorder Thyroid nodule Submandibular swelling Hypovitaminosis D Neck mass Neck pain Lymphadenopathy Essential hypertension Surgical History H/O colonoscopy History of laparoscopy History of D&C History of removal of cyst History of appendectomy History of tonsillectomy Family History Father Hypertension Prostate cancer Mother Hypertension Diabetes Dementia Social History Household Members Other:: lives alone Housing: Apartment Alcohol intake: current Alcohol intake frequency: holidays/special occasions only Alcohol type: wine and hard liquor Patient Tobacco Use Status: Never used Tobacco e-Cigarette/Vaping Use: Never Used Second Hand Smoke Exposure: Yes service: No Current occupational status: retired Current occupation: Works -nights- [employer] Current occupational exposures/hazards: No Cognitive needs: No Hearing needs: No Vision needs: Yes Female Reproductive History Menstrual Age of Menarche: 18 Physical Exam Vital Signs: Last Vital Signs Pulse 97 07/27/24 10:50 BP 170/96 H 07/27/24 10:50 BMI result Body Mass Index 41.8 Results Reviewed Results Reviewed: Laboratory Tests 09/01/21 10/06/21 08/22/22 07:24 08:07 07:00 Creatinine Estimated GFR Calcium 9.5 D 10.2 D Phosphorus 2.8 3.1 Albumin 4.3 4.4 25-OH Vitamin D Total 60.1 38.5 TSH Free T4 PTH Intact 91 H 75 H 81 H Calcium (PTH Intact) 10.0 10.1 10.0 01/20/24 06/05/24 06/05/24 08:09 07:46 07:46 Creatinine Estimated GFR 55 Calcium 9.8 Phosphorus Albumin 4.0 4.0 25-OH Vitamin D Total 31.6 31.6 TSH Free T4 PTH Intact Calcium (PTH Intact) 06/05/24 06/05/24 07:46 Unknown Creatinine 1.14 Estimated GFR 47 Calcium 9.8 Phosphorus 2.2 L Albumin 4.1 25-OH Vitamin D Total TSH 1.25 Free T4 0.98 PTH Intact 150.2 H 155.4 H Calcium (PTH Intact) US THYROID 01/10 I reviewed the images myself which show the left lower lobe dominant nodule CLINICAL INFORMATION: Nontoxic multinodular goiter. COMPARISON: Thyroid ultrasound 10/21/2022 and 03/14/2021. Ultrasound-guided thyroid biopsy 08/03/2021. CT soft tissue neck 02/13/2021. TECHNIQUE: Linear transducer dodd-scale and color Doppler examination with attention to the region of the thyroid. FINDINGS: SIZE: Measurements of the thyroid lobes and nodules are given in sagittal, anteroposterior and transverse dimensions respectively. Right Thyroid Lobe: 3.4 x 1.4 x 1.7 cm, volume 4.1 mL. Previously 3.5 x 1.5 x 1.5 cm, volume 4.0 mL. Parenchyma: The gland echotexture is heterogeneous. Thyroid vascularity is normal. Left Thyroid Lobe: 4.6 x 2.2 x 2.2 cm, volume 12.1 mL. Previously 5.0 x 2.1 x 1.5 cm, volume 8.3 mL. Parenchyma: The gland echotexture is heterogeneous. Thyroid vascularity is normal. Isthmus: 0.4 cm in maximum AP dimension. Previously 0.4 cm. Estimated total number of nodules greater than or equal to 1 cm: 1. Police Specialist nodules are described as follows: 1. Location: Right upper/mid pole. Size: 0.6 x 0.5 x 0.3 cm, volume 0.05 mL. Previously: 0.9 x 0.8 x 0.6 cm, volume 0.2 mL. Nodule characteristics: Composition: Mixed cystic and solid (1). Echogenicity: Hypoechoic (2). Shape: Not taller than wide (0). Margins: Ill-defined (0). Echogenic Foci: Comet-tail artifacts (0). ACR TI-RADS total points: 3 Previous: 4 ACR TI-RADS category: 3 Previous: 4 Significant change in size (>/= 20% in 2 dimensions and minimal increase of 2 mm or 50% or greater increase in volume): Change in features: Change in ACR TI-RADS risk category: 2. Location: Right upper pole. Size: 0.3 x 0.4 x 0.2 cm, volume 0.02 mL. Previously: 0.4 x 0.3 x 0.2 cm, volume 0.01 mL. Nodule characteristics: Composition: Solid/almost completely solid (2). Echogenicity: Hypoechoic (2). Shape: Not taller than wide (0). Margins: Ill-defined (0). Echogenic Foci: None (0). ACR TI-RADS total points: 4 Previous: 4 ACR TI-RADS category: 4 Previous: 4 Significant change in size (>/= 20% in 2 dimensions and minimal increase of 2 mm or 50% or greater increase in volume): Change in features: Change in ACR TI-RADS risk category: 3. Location: Left lower pole. Size: 2.0 x 1.6 x 1.9 cm, volume 3.2 mL. Previously: 1.8 x 1.6 x 1.4 cm, volume 2.2 mL. Nodule characteristics: Composition: Solid/almost completely solid (2). Echogenicity: Isoechoic (1). Shape: Taller than wide (3). Margins: Ill-defined (0). Echogenic Foci: None (0). ACR TI-RADS total points: 6 Previous: 3 ACR TI-RADS category: 4 Previous: 3 Significant change in size (>/= 20% in 2 dimensions and minimal increase of 2 mm or 50% or greater increase in volume): Yes Change in features: No Change in ACR TI-RADS risk category: Yes NODES: No lymphadenopathy is seen in the tissue surrounding the thyroid gland. US/US thyroid IMPRESSION: 2.0 cm left lower pole TR4 thyroid nodule meets criteria for biopsy. Fine-needle aspiration recommended. This study was presented today, 01/14/2024 at 9:00 AM, for interpretation. PSA staff will provide results to referring provider at this time. BONE DENSITOMETRY 12/2023 CLINICAL INDICATION: Nontoxic multinodular goiter. COMPARISON: Baseline BD dated 11/21/2021. TECHNIQUE: Using a [employer] DXA System (software version: 13.1) manufactured by [employer], dual-energy x-ray absorptiometry was performed of the lumbar spine, left hip, and left forearm radius 33%. The images are of good technical quality. Summary results are attached. FINDINGS: LEFT FEMUR, NECK: Current: BMD 0.973 g/cm2, Z-score 0.4, T-score -0.5, normal. Baseline: BMD 0.932 g/cm2. LEFT FEMUR, TOTAL: Current: BMD 0.994 g/cm2, Z-score 0.4, T-score -0.1, normal, 0.8% decrease from baseline (<5% change is not significant). Baseline: BMD 1.002 g/cm2. LEFT FOREARM RADIUS 33%: BMD 0.981 g/cm2, Z-score 2.9, T-score 1.2, normal, 0.7% decrease from baseline (<5% change is not significant). Baseline: BMD 0.988 g/cm2. AP SPINE L1-L2 (excluding L3 and L4): The data of L1-L4 has been changed to exclude the L3 and L4 vertebral bodies, because degenerative sclerosis at these levels may cause overestimation of lumbar spine density. Current: BMD 1.210 g/cm2, Z-score 0.9, T-score 0.4, normal, 3.6% decrease from baseline (<5% change is not significant). Baseline: BMD 1.255 g/cm2. IDENTIFIED RISK FACTORS: Menopause, height loss, history of fracture (adult), secondary osteoporosis (hyperthyroidism). HISTORY OF FRACTURE: Other. MEDICATIONS: Assessment & Plan Assessment & Plan (1) Multinodular thyroid: Code(s): E04.2 - Nontoxic multinodular goiter Category: Medical Plan: Patient with no family history of thyroid cancer, with no history of head or neck radiation coming in today for follow up of multinodular goiter. Diagnosed with thyroid nodules in 2020. Underwent FNA in July 2021 of the left dominant lower lobe nodule measuring 1.8 cm at the time, which was benign. She also had a lymph node on the same side biopsied that was negative for malignant cells, however showed some inflammatory cells. She does not have any compressive symptoms. TSH this year was unremarkable. Her most recent ultrasound from December 2023 showed growth in the side of the nodule that is significant which now measures 2 cm in the largest dimension, solid isoechoic TR 4 nodule. I reviewed the images myself. I discussed with the patient that given there is significant change in size, even though she has had a biopsy before it was benign which is reassuring, she does meet criteria for repeat FNA biopsy of this nodule. However patient feels very anxious about the idea of repeat biopsy, even during the 1st attempt a biopsy she required sedation because she was extremely anxious during a 1st attempt to biopsy this nodule. I did discuss with her that there is a 5-10% chance of malignancy the in these nodules which can possibly spread and be fatal however that is rare. Patient agrees that for now we can repeat an ultrasound to see if there is further growth, and hold off on the biopsy for now. Plan: -ordered thyroid ultrasound (2) Hyperparathyroidism: Code(s): E21.3 - Hyperparathyroidism, unspecified Category: Medical Plan: Patient with elevated PTH levels in the range of 90-100 since at least 2020. Has had normal calcium levels. Normal vitamin-D levels. Phosphorus most recently noted to be slightly low. This is concerning for possibly primary hyperparathyroidism. However she used to be on hydrochlorothiazide, which could result in some of the hypercalcemia or unmasking of hyperparathyroidism. At this time she has been off hydrochlorothiazide for the past 2 months hence we will repeat all her labs. I have also ordered a 24 hour urine calcium and creatinine to be done. Patient is about the age of 50, has no history of osteoporosis with normal forearm on bone density done in 2021, she does not have any significant symptoms of hypercalcemia, no history of kidney stones. We will wait for the results of the 24 hour urine calcium to see if she has any indication for surgery. However it seems like she would qualify for conservative management even if this does prove to be primary hyperparathyroidism. She does not have a good nutritional intake of calcium, we will have to keep that in mind when we interpret the results of her 24 hour urine calcium. Plan: -ordered 24 hour urine calcium as well as repeat labs -follow up in 12 weeks to discuss results (3) Essential hypertension: Code(s): I10 - Essential (primary) hypertension Category: Medical Plan: Blood pressure noted to be elevated. Repeat blood pressure also at 160/95. She says it is always normal at home. Have asked her to monitor her blood pressure at home and discuss with the primary care physician. Plan I spent 30 minutes in reviewing the record, seeing the patient and documenting in the medical record. Orders: Orders 2 US thyroid Today E04.2 - Nontoxic multinodular goiter Albumin Level Today E21.3 - Hyperparathyroidism, unspecified Calcium Today E21.3 - Hyperparathyroidism, unspecified Phosphorus Today E21.3 - Hyperparathyroidism, unspecified Vitamin D 25-OH Total Today E21.3 - Hyperparathyroidism, unspecified Calcium, 24 Hr Ur Today E21.3 - Hyperparathyroidism, unspecified Creatinine, 24 Hr Group Today E21.3 - Hyperparathyroidism, unspecified Comprehensive Met. Panel Today E21.3 - Hyperparathyroidism, unspecified Magnesium Today E21.3 - Hyperparathyroidism, unspecified Sodium, 24Hr Urine Group Today E21.3 - Hyperparathyroidism, unspecified Calcium, Ionized Today E21.3 - Hyperparathyroidism, unspecified Parathyroid Hormone Intact Today E21.3 - Hyperparathyroidism, unspecified Patient Instructions: Do ultrasound thyroid Up your calcium intake through diet to 1000 mg daily, you ca google calcium rich foods but some examples are yogurt, cheese, spinach, almonds, fortified orange juice, fortified almond milk Do 24 hr urine collection at lab [facility], same day as you go for giving urine , do blood work 24 hr urine collection instructions You have been asked to collect your urine for 24 hours to assess for calcium excretion. You must choose a 24 hour period of time when you will be home. The morning of the first day, DISCARD the FIRST morning void and then note the time. You will collect every single void from then on for 24 hours. For example, if you wake up at 6am and urinate, flush down that void. You will then collect every drop of urine all day and all night through 6am the following day. You will urinate one last time at 6am for the collection. The jug of urine must be kept in the refrigerator until you bring it to the lab.You have been asked to collect your urine for 24 hours to assess for calcium excretion. You must choose a 24 hour period of time when you will be home. The morning of the first day, DISCARD the FIRST morning void and then note the time. You will collect every single void from then on for 24 hours. For example, if you wake up at 6am and urinate, flush down that void. You will then collect every drop of urine all day and all night through 6am the following day. You will urinate one last time at 6am for the collection. The jug of urine must be kept in the refrigerator until you bring it to the lab. Coding Level of Care Code Est Pt Level 4 (80615) Diagnoses Multinodular thyroid E04.2 Hyperparathyroidism E21.3 Essential hypertension I10 Time Spent (min) 30
[2024-07-27 12:05] VITALS: BP 160/95
== END 2024-07-27 11:56 | disposition home or self-care (01) ==
PROVIDERS: PCP Internal Medicine; Visit Provider Student in an Organized Health Care Education/Training Program
DX: E04.2 Nontoxic multinodular goiter (principal); E21.3 Hyperparathyroidism, unspecified; I10 Essential (primary) hypertension
CPT/HCPCS: 99214

== ENCOUNTER → 2024-07-27 10:46 | Outpatient (BNVA) | payer MEDICARE, SELFPAY | PROVIDERS: PCP Internal Medicine; Visit Provider Student in an Organized Health Care Education/Training Program | DX: E21.3 Hyperparathyroidism, unspecified (principal); E04.2 Nontoxic multinodular goiter; I10 Essential (primary) hypertension | CPT/HCPCS: 99212 ==

== ENCOUNTER 2024-08-03 08:45 | Outpatient (REF) | payer MEDICARE, SELFPAY ==
--- NOTE | ~2024-08-03 | US_ITS ---
EXAMINATION: US THYROID CLINICAL INFORMATION: Nontoxic multinodular goiter. COMPARISON: Thyroid ultrasound 01/13/2024 and 10/21/2022. Ultrasound-guided thyroid biopsy 08/03/2021. CT soft tissue neck 02/13/2021. TECHNIQUE: Linear transducer grayscale and color Doppler examination with attention to the region of the thyroid. FINDINGS: SIZE: Measurements of the thyroid lobes and nodules are given in sagittal, anteroposterior and transverse dimensions respectively. Right Thyroid Lobe: 3.8 x 1.6 x 2.0 cm, volume 6.5 mL. Previously 3.4 x 1.4 x 1.7 cm, volume 4.1 mL. Parenchyma: The gland echotexture is homogeneous. Thyroid vascularity is normal. Left Thyroid Lobe: 4.8 x 1.9 x 2.1 cm, volume 9.8 mL. Previously 4.6 x 2.2 x 2.2 cm, volume 12.1 mL. Parenchyma: The gland echotexture is homogeneous. Thyroid vascularity is normal. Isthmus: 0.7 cm in maximum AP dimension. Previously 0.4 cm. Estimated total number of nodules greater than or equal to 1 cm: 1. Pulmonologist nodules are described as follows: 1. Location: Right mid pole. Size: 0.3 x 0.4 x 0.3 cm, volume 0.03 mL. Nodule characteristics: Composition: Solid (2). Echogenicity: Hyperechoic (1). Shape: Not taller than wide (0). Margins: Smooth (0). Echogenic Foci: None (0). ACR TI-RADS total points: 3 ACR TI-RADS category: 3 2. Location: Isthmus. Size: 0.4 x 0.5 x 0.5 cm, volume 0.06 mL. Nodule characteristics: Composition: Solid (2). Echogenicity: Hypoechoic (2). Shape: Not taller than wide (0). Margins: Smooth (0). Echogenic Foci: None (0). ACR TI-RADS total points: 4 ACR TI-RADS category: 4 3. Location: Left lower pole. Size: 2.5 x 1.8 x 1.7 cm, volume 4.1 mL. Previously: 2.0 x 1.6 x 1.9 cm, volume 3.2 mL. Nodule characteristics: Composition: Solid (2). Echogenicity: Hyperechoic (1). Shape: Not taller than wide (0). Margins: Ill-defined (0). Echogenic Foci: None (0). ACR TI-RADS total points: 3 Previous: 6 ACR TI-RADS category: 3 Previous: 4 Significant change in size (>/= 20% in 2 dimensions and minimal increase of 2 mm or 50% or greater increase in volume): Yes Change in features: Yes Change in ACR TI-RADS risk category: Yes 4. Location: Left mid pole. Size: 0.5 x 0.4 x 0.5 cm, volume 0.05 mL. Nodule characteristics: Composition: Cystic(0). ACR TI-RADS total points: 0 ACR TI-RADS category: 1 NODES: No lymphadenopathy is seen in the tissue surrounding the thyroid gland. US/US thyroid IMPRESSION: 1. Bilateral thyroid nodules are seen, as detailed. The increased 2.5 cm TR 3 nodule at the lower pole of the left lobe meets ACR biopsy criteria and is amenable to ultrasound-guided biopsy, if clinically indicated and not already performed. 2. There is an asymmetric goiter, left lobe greater than right. ACR TI-RADS RECOMMENDATION REFERENCE: Ultrasound-guided fine-needle aspiration, follow up ultrasound, no further followup. * TR1 (0 point) and TR2 (2 points): No FNA or followup * TR3 (3 points): FNA if more than or equal to 2.5 cm in maximum dimension, follow up ultrasound in 1, 3 and 5 years if 1.5 to 2.4 cm in maximum dimension. * TR4 (4-6 points): FNA if more than or equal to 1.5 cm in maximum dimension, follow up ultrasound in 1, 2, 3 and 5 years if 1 to 1.4 cm in maximum dimension. * TR5 (more than or equal to 7 points): FNA if more than or equal to 1 cm in maximum dimension, follow up ultrasound every year for 5 years if 0.5 to 0.9 cm in maximum dimension. * TR3, TR4 or TR5 nodules that are below the size threshold for follow up receive no followup. Electronically signed by: Kwasi Hassan MD 08/12/2024 03:02 PM EDT
== END 2024-08-03 08:46 | disposition home or self-care (01) ==
LOC: HO.US 08:45
PROVIDERS: PCP Internal Medicine; Visit Provider Student in an Organized Health Care Education/Training Program
DX: E04.2 Nontoxic multinodular goiter (principal)
CPT/HCPCS: 76536

== ENCOUNTER 2024-08-16 08:45 | Outpatient (AMB) | payer MEDICARE, SELFPAY ==
--- NOTE | 2024-08-16 08:47 | A.OFFVIS_ITS ---
Vital Signs 3 08/16/24 08:48 Height 5 ft 5 in Weight 246 lb 0.574 oz BMI 40.9 BP 120/82 Blood Pressure Location Lt brachial Position Sitting Pulse 81 Pulse Source Pulse Oximeter Intake Visit Reasons: US Results F/u Intake Note: Patient present today for ultrasound results. 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 Cool and then Dr. Mills, established with de 07/27/24 MNG HPI from prior visit Was initially diagnosed with a multinodular thyroid in February 2021 with a thyroid US revealing multiple bilateral nodules, including a 1.9 cm LLP nodule. This also revealed a 1.2 cm exophytic lesion posterior to the L lobe which apepared to represent a lymph node. 07/05/2021 for FNA biopsy, but was unable to tolerate this due to extreme anxiety. Procedure was aborted and she was to be scheduled with IR for FNA under conscious sedation. FNA biopsy by Dr. Berrios 08/03/2021 of a LLP 1.9 cm thyroid nodule, with benign cytology. The 1.2 cm lesion posterior to the L lobe of the thyroid was also biopsied, with cytology indeterminate, but suspicious for parathyroid cells. There was no malignancy identified. Ultrasound 08/03/2024 showed significant increase in the size of the left lower pole dominant nodule now measuring 2.5 x 1.8 x 1.7 cm, pt is here to day mainly to discuss these results. No trouble swallowing, no difficulty breathing, no changes in voice. Sometimes at night feels gasping for air but has sleep apnea, doesnt wear CPAP. No symptoms of hyperthyroidism or hypothyrodism. Denies any history of head or neck irradiation. Denies any family history of thyroid cancer. Hyperparathyroidism labs revealed hyperparathyroidism 09/01/2021 Calcium 10.0, Albumin 4.3, PTH 91 and Vitamin D 60.1. She had a DEXA scan 11/21/2021 which was WNL including the distal forearm. Most recent DEXA 01/10 showed normal bone density but no foraerm. She fractured a rib 10/09 from a sneezing episode. No other recent fractures, broke left leg at 2 years of age fall from monkey bar No kidney stones, no blood in urine Does have GFR <60 at 47 per labs 06/09 No constipation, sometimes gets loose stools, not too often , no increased urination, no brain fog, no abd pain regularly sometimes intermittent right abd pain but has cholelithiaisis Was previoulsy on HCTZ but off at least since 06/09 No family history of kidney stones, calcium problems Taking vitamin D 1000 units daily, no calcium supplements No milk, does have cheese 3-4 times a week, yogurt very few times Hypertension Diagnosed when she was in her 30s Does have history of sleep apnea but does not wear a CPAP Currently on losartan 50 mg daily and recently was having uncontrolled blood pressure with systolic in the 160s so nifedipine was increased to 60 mg twice daily from once daily. She is also following Nephrology. Physical exam General: sitting comfortably in no acute distress HEENT: normocephalic/atraumatic,, moist oral mucosa Neck: supple, symmetrical, no thyromegaly ,palpable 1-2 cm left sided nodule , no dorsocervical or supraclavicular fat pads Cardiac: normal heart sounds Pulm: normal breath sounds B/L, no added breath sounds Abd: not distended, no tenderness Extremities: no edema, no signs of myxedema PFSH Medical History Transaminitis Hyperparathyroidism Morbid obesity Multinodular thyroid Breast mass Shortness of breath Laryngeal disorder Thyroid nodule Submandibular swelling Hypovitaminosis D Neck mass Neck pain Lymphadenopathy Essential hypertension Surgical History H/O colonoscopy History of laparoscopy History of D&C History of removal of cyst History of appendectomy History of tonsillectomy Family History Father Hypertension Prostate cancer Mother Hypertension Diabetes Dementia Social History Household Members Other:: lives alone Housing: Apartment Alcohol intake: current Alcohol intake frequency: holidays/special occasions only Alcohol type: wine and hard liquor Patient Tobacco Use Status: Never used Tobacco e-Cigarette/Vaping Use: Never Used Second Hand Smoke Exposure: Yes service: No Current occupational status: retired Current occupation: [employer] Current occupational exposures/hazards: No Cognitive needs: No Hearing needs: No Vision needs: Yes Female Reproductive History Menstrual Age of Menarche: 18 Results Reviewed Results Reviewed: Laboratory Tests 09/01/21 10/06/21 08/22/22 07:24 08:07 07:00 Creatinine Estimated GFR Calcium 9.5 D 10.2 D Phosphorus 2.8 3.1 Albumin 4.3 4.4 25-OH Vitamin D Total 60.1 38.5 TSH Free T4 PTH Intact 91 H 75 H 81 H Calcium (PTH Intact) 10.0 10.1 10.0 01/20/24 06/05/24 06/05/24 08:09 07:46 07:46 Creatinine Estimated GFR 55 Calcium 9.8 Phosphorus Albumin 4.0 4.0 25-OH Vitamin D Total 31.6 31.6 TSH Free T4 PTH Intact Calcium (PTH Intact) 06/05/24 06/05/24 07:46 Unknown Creatinine 1.14 Estimated GFR 47 Calcium 9.8 Phosphorus 2.2 L Albumin 4.1 25-OH Vitamin D Total TSH 1.25 Free T4 0.98 PTH Intact 150.2 H 155.4 H Calcium (PTH Intact) US THYROID 08/03/24 I reviewed the images myself which show the left lower lobe dominant nodule CLINICAL INFORMATION: Nontoxic multinodular goiter. COMPARISON: Thyroid ultrasound 01/13/2024 and 10/21/2022. Ultrasound-guided thyroid biopsy 08/03/2021. CT soft tissue neck 02/13/2021. TECHNIQUE: Linear transducer grayscale and color Doppler examination with attention to the region of the thyroid. FINDINGS: SIZE: Measurements of the thyroid lobes and nodules are given in sagittal, anteroposterior and transverse dimensions respectively. Right Thyroid Lobe: 3.8 x 1.6 x 2.0 cm, volume 6.5 mL. Previously 3.4 x 1.4 x 1.7 cm, volume 4.1 mL. Parenchyma: The gland echotexture is homogeneous. Thyroid vascularity is normal. Left Thyroid Lobe: 4.8 x 1.9 x 2.1 cm, volume 9.8 mL. Previously 4.6 x 2.2 x 2.2 cm, volume 12.1 mL. Parenchyma: The gland echotexture is homogeneous. Thyroid vascularity is normal. Isthmus: 0.7 cm in maximum AP dimension. Previously 0.4 cm. Estimated total number of nodules greater than or equal to 1 cm: 1. Disaster Recovery Consultant nodules are described as follows: 1. Location: Right mid pole. Size: 0.3 x 0.4 x 0.3 cm, volume 0.03 mL. Nodule characteristics: Composition: Solid (2). Echogenicity: Hyperechoic (1). Shape: Not taller than wide (0). Margins: Smooth (0). Echogenic Foci: None (0). ACR TI-RADS total points: 3 ACR TI-RADS category: 3 2. Location: Isthmus. Size: 0.4 x 0.5 x 0.5 cm, volume 0.06 mL. Nodule characteristics: Composition: Solid (2). Echogenicity: Hypoechoic (2). Shape: Not taller than wide (0). Margins: Smooth (0). Echogenic Foci: None (0). ACR TI-RADS total points: 4 ACR TI-RADS category: 4 3. Location: Left lower pole. Size: 2.5 x 1.8 x 1.7 cm, volume 4.1 mL. Previously: 2.0 x 1.6 x 1.9 cm, volume 3.2 mL. Nodule characteristics: Composition: Solid (2). Echogenicity: Hyperechoic (1). Shape: Not taller than wide (0). Margins: Ill-defined (0). Echogenic Foci: None (0). ACR TI-RADS total points: 3 Previous: 6 ACR TI-RADS category: 3 Previous: 4 Significant change in size (>/= 20% in 2 dimensions and minimal increase of 2 mm or 50% or greater increase in volume): Yes Change in features: Yes Change in ACR TI-RADS risk category: Yes 4. Location: Left mid pole. Size: 0.5 x 0.4 x 0.5 cm, volume 0.05 mL. Nodule characteristics: Composition: Cystic(0). ACR TI-RADS total points: 0 ACR TI-RADS category: 1 NODES: No lymphadenopathy is seen in the tissue surrounding the thyroid gland. US/US thyroid IMPRESSION: 1. Bilateral thyroid nodules are seen, as detailed. The increased 2.5 cm TR 3 nodule at the lower pole of the left lobe meets ACR biopsy criteria and is amenable to ultrasound-guided biopsy, if clinically indicated and not already performed. 2. There is an asymmetric goiter, left lobe greater than right. US THYROID 01/10 I reviewed the images myself which show the left lower lobe dominant nodule CLINICAL INFORMATION: Nontoxic multinodular goiter. COMPARISON: Thyroid ultrasound 10/21/2022 and 03/14/2021. Ultrasound-guided thyroid biopsy 08/03/2021. CT soft tissue neck 02/13/2021. TECHNIQUE: Linear transducer dodd-scale and color Doppler examination with attention to the region of the thyroid. FINDINGS: SIZE: Measurements of the thyroid lobes and nodules are given in sagittal, anteroposterior and transverse dimensions respectively. Right Thyroid Lobe: 3.4 x 1.4 x 1.7 cm, volume 4.1 mL. Previously 3.5 x 1.5 x 1.5 cm, volume 4.0 mL. Parenchyma: The gland echotexture is heterogeneous. Thyroid vascularity is normal. Left Thyroid Lobe: 4.6 x 2.2 x 2.2 cm, volume 12.1 mL. Previously 5.0 x 2.1 x 1.5 cm, volume 8.3 mL. Parenchyma: The gland echotexture is heterogeneous. Thyroid vascularity is normal. Isthmus: 0.4 cm in maximum AP dimension. Previously 0.4 cm. Estimated total number of nodules greater than or equal to 1 cm: 1. Disaster Recovery Consultant nodules are described as follows: 1. Location: Right upper/mid pole. Size: 0.6 x 0.5 x 0.3 cm, volume 0.05 mL. Previously: 0.9 x 0.8 x 0.6 cm, volume 0.2 mL. Nodule characteristics: Composition: Mixed cystic and solid (1). Echogenicity: Hypoechoic (2). Shape: Not taller than wide (0). Margins: Ill-defined (0). Echogenic Foci: Comet-tail artifacts (0). ACR TI-RADS total points: 3 Previous: 4 ACR TI-RADS category: 3 Previous: 4 Significant change in size (>/= 20% in 2 dimensions and minimal increase of 2 mm or 50% or greater increase in volume): Change in features: Change in ACR TI-RADS risk category: 2. Location: Right upper pole. Size: 0.3 x 0.4 x 0.2 cm, volume 0.02 mL. Previously: 0.4 x 0.3 x 0.2 cm, volume 0.01 mL. Nodule characteristics: Composition: Solid/almost completely solid (2). Echogenicity: Hypoechoic (2). Shape: Not taller than wide (0). Margins: Ill-defined (0). Echogenic Foci: None (0). ACR TI-RADS total points: 4 Previous: 4 ACR TI-RADS category: 4 Previous: 4 Significant change in size (>/= 20% in 2 dimensions and minimal increase of 2 mm or 50% or greater increase in volume): Change in features: Change in ACR TI-RADS risk category: 3. Location: Left lower pole. Size: 2.0 x 1.6 x 1.9 cm, volume 3.2 mL. Previously: 1.8 x 1.6 x 1.4 cm, volume 2.2 mL. Nodule characteristics: Composition: Solid/almost completely solid (2). Echogenicity: Isoechoic (1). Shape: Taller than wide (3). Margins: Ill-defined (0). Echogenic Foci: None (0). ACR TI-RADS total points: 6 Previous: 3 ACR TI-RADS category: 4 Previous: 3 Significant change in size (>/= 20% in 2 dimensions and minimal increase of 2 mm or 50% or greater increase in volume): Yes Change in features: No Change in ACR TI-RADS risk category: Yes NODES: No lymphadenopathy is seen in the tissue surrounding the thyroid gland. US/US thyroid IMPRESSION: 2.0 cm left lower pole TR4 thyroid nodule meets criteria for biopsy. Fine-needle aspiration recommended. This study was presented today, 01/14/2024 at 9:00 AM, for interpretation. PSA staff will provide results to referring provider at this time. BONE DENSITOMETRY 12/2023 CLINICAL INDICATION: Nontoxic multinodular goiter. COMPARISON: Baseline BD dated 11/21/2021. TECHNIQUE: Using a [employer] DXA System (software version: 13.1) manufactured by [employer], dual-energy x-ray absorptiometry was performed of the lumbar spine, left hip, and left forearm radius 33%. The images are of good technical quality. Summary results are attached. FINDINGS: LEFT FEMUR, NECK: Current: BMD 0.973 g/cm2, Z-score 0.4, T-score -0.5, normal. Baseline: BMD 0.932 g/cm2. LEFT FEMUR, TOTAL: Current: BMD 0.994 g/cm2, Z-score 0.4, T-score -0.1, normal, 0.8% decrease from baseline (<5% change is not significant). Baseline: BMD 1.002 g/cm2. LEFT FOREARM RADIUS 33%: BMD 0.981 g/cm2, Z-score 2.9, T-score 1.2, normal, 0.7% decrease from baseline (<5% change is not significant). Baseline: BMD 0.988 g/cm2. AP SPINE L1-L2 (excluding L3 and L4): The data of L1-L4 has been changed to exclude the L3 and L4 vertebral bodies, because degenerative sclerosis at these levels may cause overestimation of lumbar spine density. Current: BMD 1.210 g/cm2, Z-score 0.9, T-score 0.4, normal, 3.6% decrease from baseline (<5% change is not significant). Baseline: BMD 1.255 g/cm2. IDENTIFIED RISK FACTORS: Menopause, height loss, history of fracture (adult), secondary osteoporosis (hyperthyroidism). HISTORY OF FRACTURE: Other. Assessment & Plan Assessment & Plan (1) Multinodular thyroid: Code(s): E04.2 - Nontoxic multinodular goiter Category: Medical Plan: Patient with no family history of thyroid cancer, with no history of head or neck radiation coming in today for follow up of multinodular goiter. Diagnosed with thyroid nodules in 2020. Underwent FNA in July 2021 of the left dominant lower lobe nodule measuring 1.8 cm at the time, which was benign. She also had a lymph node on the same side biopsied that was negative for malignant cells, however showed some inflammatory cells. She does not have any compressive symptoms. TSH 06/09 was unremarkable. t ultrasound from December 2023 showed growth in the side of the nodule that is significant which measured 2 cm in the largest dimension, solid isoechoic TR 4 nodule. We repeated a thyroid ultrasound done 08/03/2024 which again showed further significant increase in the size of the nodule. This now measures 2.5 cm in the maximum dimension. I reviewed the images myself. I discussed with the patient that given there is significant change in size, even though she has had a biopsy before it was benign which is reassuring, she does meet criteria for repeat FNA biopsy of this nodule. I explained that it is common to have thyroid nodules. About 95% of the time these nodules are benign. However if the nodule is > 1 cm in size or suspicious on ultrasound then a fine need aspiration biopsy is recommended. We discussed that a FNAB involves 4-5 passes with a small gauge needle and material obtained is sent off for cytology.If the cytopathology is benign then the nodule will be followed annually with repeat ultrasounds. However if it is suspicious or malignant, we will need to discuss further management. Indeterminate cytology can be further investigated with repeat FNA, genetic testing or empiric lobectomy. Malignant cytology is managed with either lobectomy or total thyroidectomy. We discussed briefly that thyroid cancer is, in most patients, an indolent disease that does not affect mortality. We will arrange for FNA of the left lower pole 2.5 cm nodule at next available opening and patient will follow up with me in clinic thereafter for results and further decision making. Plan: -ordered FNA of the left lower pole 2.5 cm nodule and a follow up 1-2 weeks after to discuss results (2) Hyperparathyroidism: Code(s): E21.3 - Hyperparathyroidism, unspecified Category: Medical Plan: Patient with elevated PTH levels in the range of 90-100 since at least 2020. Has had normal calcium levels. Normal vitamin-D levels. Phosphorus most recently noted to be slightly low. This is concerning for possibly primary hyperparathyroidism vs normoclacemic hyperparathyrodiism. However she used to be on hydrochlorothiazide, which could result in some of the hypercalcemia or unmasking of hyperparathyroidism. At this time she has been off hydrochlorothiazide for the past 3 months hence we will repeat all her labs. I have also ordered a 24 hour urine calcium and creatinine to be done. She is noted to have significantly low nutritional intake of calcium, so I have asked her to increase that for at least 8 weeks and then do repeat labs. Patient is above the age of 50, has no history of osteoporosis with normal forearm on bone density done in 2021, she does not have any significant symptoms of hypercalcemia, no history of kidney stones. Her GFR is however less than 60. We will wait for the results of the 24 hour urine calcium to see if she has any indication for surgery. On previous thyroid ultrasound she was also noted to have a left lymph node that was biopsied in July 2021 and showed inflammatory cells with some suspicion of parathyroid adenoma. This could possibly be the culprit lesion. Plan: -continue increased intake of calcium for another 4 weeks since last seen 07/27 -follow up results 24 hour urine calcium as well as repeat labs (3) Essential hypertension: Code(s): I10 - Essential (primary) hypertension Category: Medical Plan: Blood pressure previously noted to be elevated. She follows with Nephrology and most recently increased her dose of nifedipine from 60 daily to 60 mg b.i.d.. Blood pressure better controlled today. She is also on losartan 50 mg daily. She is noted to have obstructive sleep apnea though she does not use CPAP. She was also diagnosed with hypertension in her 30s. Given young age of diagnosis, requiring titration up of her blood pressure medications and given there is an increased prevalence of primary hyperaldosteronism patients with obstructive sleep apnea, I will screen her for primary hyperaldosteronism. Have to keep in mind that she is on losartan which can cause falsely elevated renin levels. Have asked her to monitor her blood pressure at home. Plan: -check BMP, renin, aldosterone Plan I spent 30 minutes in reviewing the record, seeing the patient and documenting in the medical record. Orders: Orders 2 US biopsy thyroid 2 Weeks E04.2 - Nontoxic multinodular goiter Basic Metabolic Panel Today I10 - Essential (primary) hypertension Renin Today I10 - Essential (primary) hypertension Aldosterone Today I10 - Essential (primary) hypertension Coding Level of Care Code Est Pt Level 4 (12713) Diagnoses Multinodular thyroid E04.2 Hyperparathyroidism E21.3 Essential hypertension I10 Time Spent (min) 30
[2024-08-16 08:48] VITALS: BP 120/82; PULSE 81; BMI 40.9
== END 2024-08-16 09:31 | disposition home or self-care (01) ==
PROVIDERS: PCP Internal Medicine; Visit Provider Student in an Organized Health Care Education/Training Program
DX: E04.2 Nontoxic multinodular goiter (principal); E21.3 Hyperparathyroidism, unspecified; I10 Essential (primary) hypertension
CPT/HCPCS: 99214

== ENCOUNTER → 2024-08-16 08:45 | Outpatient (BNVA) | payer MEDICARE, SELFPAY | PROVIDERS: PCP Internal Medicine; Visit Provider Student in an Organized Health Care Education/Training Program | DX: E04.2 Nontoxic multinodular goiter (principal); E21.3 Hyperparathyroidism, unspecified; I10 Essential (primary) hypertension | CPT/HCPCS: 99212 ==

== ENCOUNTER 2024-09-08 08:27 | Outpatient (REF) | payer MEDICARE, SELFPAY ==
--- NOTE | 2024-09-08 09:18 | PCN2_ITS ---
Brief Operative Note Date of procedure: 09/08/24 Pre-op diagnosis: left 2.5 cm lower pole thyroid nodule FNA biopsy Post-op diagnosis: same Procedure: THYROID FINE NEEDLE ASPIRATION PROCEDURE NOTE ? PROCEDURE PERFORMED: Ultrasound-guided FNA of thyroid nodule ? OPERATORS: Dr. Verna Johnson ? INDICATION: left 2.5 cm lower pole thyroid nodule FNA biopsy; FNA performed to assess for malignancy ? DESCRIPTION OF PROCEDURE: The indications for FNA (to assess for malignancy) were reviewed with the patient in detail. Potential complications (e.g., bleeding, infection, damage to local structures, absence of clear diagnosis after FNA) were reviewed. Alternatives to FNA including conservative observation or surgery were described. The patient understood and agreed to proceed. This was documented by the signing of the written informed consent form. A time-out was performed to confirm the patient's identity and the site of planned FNA. The nodule of interest was identified using ultrasound (14 MHz linear array probe). The site of FNA was then draped in the usual fashion and carefully cleaned and prepared using alcohol swabs. The skin at the previously-identified site of needle insertion was iced and sprayed with numbing spray. Under ultrasound guidance, 4__ passes were performed using a 1.5-inch, 25-gauge needle, and sample was obtained via capillary action. The needle tip was clearly visualized to be within the nodule at the time of sampling for _3_ of 4__ passes. Patient moved with the first pass due to pain and the needle had to be withdrawn before it was visualized. The patient tolerated the procedure well. There were no immediate complications. A small adhesive bandage was applied, and the patient was advised to take acetaminophen (rather than NSAIDs) for any discomfort and to report any signs of inflammation/infection or marked swelling. IMPRESSION: Technically successful ultrasound-guided fine needle aspiration of left 2.5 cm lower pole thyroid nodule.. PLAN: The patient was advised that I will provide follow-up regarding the cytolo gy result and any subsequent plans. Dr. Verna Johnson Condition: stable Disposition: same day
== END 2024-09-08 08:28 | disposition home or self-care (01) ==
LOC: HO.US 08:27
PROVIDERS: PCP Internal Medicine; Visit Provider Student in an Organized Health Care Education/Training Program
DX: E04.2 Nontoxic multinodular goiter (principal)
CPT/HCPCS: 10005; 88173; 88305

== ENCOUNTER → 2024-09-08 08:27 | Outpatient (BNV) | payer MEDICARE, SELFPAY | PROVIDERS: PCP Internal Medicine; Visit Provider Student in an Organized Health Care Education/Training Program | DX: E04.2 Nontoxic multinodular goiter (principal) | CPT/HCPCS: 10005 ==

== ENCOUNTER 2024-09-15 13:42 | Outpatient (AMB) | payer MEDICARE, SELFPAY ==
[2024-09-15 13:45] VITALS: BP 128/78; PULSE 82; BMI 41.8
--- NOTE | 2024-09-15 13:45 | MHC.OFFVIS ---
Vital Signs 09/15/24 13:45 Height 5 ft 5 in Weight 251 lb 5.231 oz BMI 41.8 BP 128/78 Blood Pressure Location Lt brachial Position Sitting Pulse 82 Pulse Source Pulse Oximeter Intake Visit Reasons: Biopsy f/u-conf Intake Note: Patient present today for biopsy results. 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 She is here today to discuss the results of the thyroid biopsy of the left lower pole 0.5 cm nodule. MNG HPI from prior visit Was initially diagnosed with a multinodular thyroid in February 2021 with a thyroid US revealing multiple bilateral nodules, including a 1.9 cm LLP nodule. This also revealed a 1.2 cm exophytic lesion posterior to the L lobe which apepared to represent a lymph node. 07/05/2021 for FNA biopsy, but was unable to tolerate this due to extreme anxiety. Procedure was aborted and she was to be scheduled with IR for FNA under conscious sedation. FNA biopsy by Dr. Berrios 08/03/2021 of a LLP 1.9 cm thyroid nodule, with benign cytology. The 1.2 cm lesion posterior to the L lobe of the thyroid was also biopsied, with cytology indeterminate, but suspicious for parathyroid cells. There was no malignancy identified. 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 Afirma results are pending. No trouble swallowing, no difficulty breathing, no changes in voice. Sometimes at night feels gasping for air but has sleep apnea, doesnt wear CPAP. No symptoms of hyperthyroidism or hypothyrodism. Denies any history of head or neck irradiation. Denies any family history of thyroid cancer. Hyperparathyroidism labs revealed hyperparathyroidism 09/01/2021 Calcium 10.0, Albumin 4.3, PTH 91 and Vitamin D 60.1. She had a DEXA scan 11/21/2021 which was WNL including the distal forearm. Most recent DEXA 01/10 showed normal bone density but no foraerm. She fractured a rib 10/09 from a sneezing episode. No other recent fractures, broke left leg at 2 years of age fall from monkey bar No kidney stones, no blood in urine Does have GFR <60 at 47 per labs 06/09 No constipation, sometimes gets loose stools, not too often , no increased urination, no brain fog, no abd pain regularly sometimes intermittent right abd pain but has cholelithiaisis Was previoulsy on HCTZ but off at least since 06/09 No family history of kidney stones, calcium problems Taking vitamin D 1000 units daily, no calcium supplements No milk, does have cheese 3-4 times a week, yogurt very few times Interval history : now doing milk in cereal, 1 serving yogurt and almonds daily , and it has been about 7 weeks since she made this change, waiting to do the 24 hour urine after 8-9 weeks of this change. Hypertension Diagnosed when she was in her 30s Does have history of sleep apnea but does not wear a CPAP Currently on losartan 50 mg daily and recently was having uncontrolled blood pressure with systolic in the 160s so nifedipine was increased to 60 mg twice daily from once daily. She is also following Nephrology. Blood pressure within goal today. Physical exam General: sitting comfortably in no acute distress HEENT: normocephalic/atraumatic,, moist oral mucosa Neck: supple, symmetrical, no thyromegaly ,palpable 1-2 cm left sided nodule , no dorsocervical or supraclavicular fat pads Cardiac: normal heart sounds Pulm: normal breath sounds B/L, no added breath sounds Abd: not distended, no tenderness Extremities: no edema, no signs of myxedema Laboratory Tests 09/01/21 10/06/21 08/22/22 07:24 08:07 07:00 Creatinine Estimated GFR Calcium 9.5 D 10.2 D Phosphorus 2.8 3.1 Albumin 4.3 4.4 25-OH Vitamin D Total 60.1 38.5 TSH Free T4 PTH Intact 91 H 75 H 81 H Calcium (PTH Intact) 10.0 10.1 10.0 01/20/24 06/05/24 06/05/24 08:09 07:46 07:46 Creatinine Estimated GFR 55 Calcium 9.8 Phosphorus Albumin 4.0 4.0 25-OH Vitamin D Total 31.6 31.6 TSH Free T4 PTH Intact Calcium (PTH Intact) 06/05/24 06/05/24 07:46 Unknown Creatinine 1.14 Estimated GFR 47 Calcium 9.8 Phosphorus 2.2 L Albumin 4.1 25-OH Vitamin D Total TSH 1.25 Free T4 0.98 PTH Intact 150.2 H 155.4 H Calcium (PTH Intact) US THYROID 08/03/24 I reviewed the images myself which show the left lower lobe dominant nodule CLINICAL INFORMATION: Nontoxic multinodular goiter. COMPARISON: Thyroid ultrasound 01/13/2024 and 10/21/2022. Ultrasound-guided thyroid biopsy 08/03/2021. CT soft tissue neck 02/13/2021. TECHNIQUE: Linear transducer grayscale and color Doppler examination with attention to the region of the thyroid. FINDINGS: SIZE: Measurements of the thyroid lobes and nodules are given in sagittal, anteroposterior and transverse dimensions respectively. Right Thyroid Lobe: 3.8 x 1.6 x 2.0 cm, volume 6.5 mL. Previously 3.4 x 1.4 x 1.7 cm, volume 4.1 mL. Parenchyma: The gland echotexture is homogeneous. Thyroid vascularity is normal. Left Thyroid Lobe: 4.8 x 1.9 x 2.1 cm, volume 9.8 mL. Previously 4.6 x 2.2 x 2.2 cm, volume 12.1 mL. Parenchyma: The gland echotexture is homogeneous. Thyroid vascularity is normal. Isthmus: 0.7 cm in maximum AP dimension. Previously 0.4 cm. Estimated total number of nodules greater than or equal to 1 cm: 1. Automatic Buffing Wheel Former nodules are described as follows: 1. Location: Right mid pole. Size: 0.3 x 0.4 x 0.3 cm, volume 0.03 mL. Nodule characteristics: Composition: Solid (2). Echogenicity: Hyperechoic (1). Shape: Not taller than wide (0). Margins: Smooth (0). Echogenic Foci: None (0). ACR TI-RADS total points: 3 ACR TI-RADS category: 3 2. Location: Isthmus. Size: 0.4 x 0.5 x 0.5 cm, volume 0.06 mL. Nodule characteristics: Composition: Solid (2). Echogenicity: Hypoechoic (2). Shape: Not taller than wide (0). Margins: Smooth (0). Echogenic Foci: None (0). ACR TI-RADS total points: 4 ACR TI-RADS category: 4 3. Location: Left lower pole. Size: 2.5 x 1.8 x 1.7 cm, volume 4.1 mL. Previously: 2.0 x 1.6 x 1.9 cm, volume 3.2 mL. Nodule characteristics: Composition: Solid (2). Echogenicity: Hyperechoic (1). Shape: Not taller than wide (0). Margins: Ill-defined (0). Echogenic Foci: None (0). ACR TI-RADS total points: 3 Previous: 6 ACR TI-RADS category: 3 Previous: 4 Significant change in size (>/= 20% in 2 dimensions and minimal increase of 2 mm or 50% or greater increase in volume): Yes Change in features: Yes Change in ACR TI-RADS risk category: Yes 4. Location: Left mid pole. Size: 0.5 x 0.4 x 0.5 cm, volume 0.05 mL. Nodule characteristics: Composition: Cystic(0). ACR TI-RADS total points: 0 ACR TI-RADS category: 1 NODES: No lymphadenopathy is seen in the tissue surrounding the thyroid gland. US/US thyroid IMPRESSION: 1. Bilateral thyroid nodules are seen, as detailed. The increased 2.5 cm TR 3 nodule at the lower pole of the left lobe meets ACR biopsy criteria and is amenable to ultrasound-guided biopsy, if clinically indicated and not already performed. 2. There is an asymmetric goiter, left lobe greater than right. US THYROID 01/10 I reviewed the images myself which show the left lower lobe dominant nodule CLINICAL INFORMATION: Nontoxic multinodular goiter. COMPARISON: Thyroid ultrasound 10/21/2022 and 03/14/2021. Ultrasound-guided thyroid biopsy 08/03/2021. CT soft tissue neck 02/13/2021. TECHNIQUE: Linear transducer dodd-scale and color Doppler examination with attention to the region of the thyroid. FINDINGS: SIZE: Measurements of the thyroid lobes and nodules are given in sagittal, anteroposterior and transverse dimensions respectively. Right Thyroid Lobe: 3.4 x 1.4 x 1.7 cm, volume 4.1 mL. Previously 3.5 x 1.5 x 1.5 cm, volume 4.0 mL. Parenchyma: The gland echotexture is heterogeneous. Thyroid vascularity is normal. Left Thyroid Lobe: 4.6 x 2.2 x 2.2 cm, volume 12.1 mL. Previously 5.0 x 2.1 x 1.5 cm, volume 8.3 mL. Parenchyma: The gland echotexture is heterogeneous. Thyroid vascularity is normal. Isthmus: 0.4 cm in maximum AP dimension. Previously 0.4 cm. Estimated total number of nodules greater than or equal to 1 cm: 1. Automatic Buffing Wheel Former nodules are described as follows: 1. Location: Right upper/mid pole. Size: 0.6 x 0.5 x 0.3 cm, volume 0.05 mL. Previously: 0.9 x 0.8 x 0.6 cm, volume 0.2 mL. Nodule characteristics: Composition: Mixed cystic and solid (1). Echogenicity: Hypoechoic (2). Shape: Not taller than wide (0). Margins: Ill-defined (0). Echogenic Foci: Comet-tail artifacts (0). ACR TI-RADS total points: 3 Previous: 4 ACR TI-RADS category: 3 Previous: 4 Significant change in size (>/= 20% in 2 dimensions and minimal increase of 2 mm or 50% or greater increase in volume): Change in features: Change in ACR TI-RADS risk category: 2. Location: Right upper pole. Size: 0.3 x 0.4 x 0.2 cm, volume 0.02 mL. Previously: 0.4 x 0.3 x 0.2 cm, volume 0.01 mL. Nodule characteristics: Composition: Solid/almost completely solid (2). Echogenicity: Hypoechoic (2). Shape: Not taller than wide (0). Margins: Ill-defined (0). Echogenic Foci: None (0). ACR TI-RADS total points: 4 Previous: 4 ACR TI-RADS category: 4 Previous: 4 Significant change in size (>/= 20% in 2 dimensions and minimal increase of 2 mm or 50% or greater increase in volume): Change in features: Change in ACR TI-RADS risk category: 3. Location: Left lower pole. Size: 2.0 x 1.6 x 1.9 cm, volume 3.2 mL. Previously: 1.8 x 1.6 x 1.4 cm, volume 2.2 mL. Nodule characteristics: Composition: Solid/almost completely solid (2). Echogenicity: Isoechoic (1). Shape: Taller than wide (3). Margins: Ill-defined (0). Echogenic Foci: None (0). ACR TI-RADS total points: 6 Previous: 3 ACR TI-RADS category: 4 Previous: 3 Significant change in size (>/= 20% in 2 dimensions and minimal increase of 2 mm or 50% or greater increase in volume): Yes Change in features: No Change in ACR TI-RADS risk category: Yes NODES: No lymphadenopathy is seen in the tissue surrounding the thyroid gland. US/US thyroid IMPRESSION: 2.0 cm left lower pole TR4 thyroid nodule meets criteria for biopsy. Fine-needle aspiration recommended. This study was presented today, 01/14/2024 at 9:00 AM, for interpretation. PSA staff will provide results to referring provider at this time. BONE DENSITOMETRY 12/2023 CLINICAL INDICATION: Nontoxic multinodular goiter. COMPARISON: Baseline BD dated 11/21/2021. TECHNIQUE: Using a [employer] DXA System (software version: 13.1) manufactured by [employer], dual-energy x-ray absorptiometry was performed of the lumbar spine, left hip, and left forearm radius 33%. The images are of good technical quality. Summary results are attached. FINDINGS: LEFT FEMUR, NECK: Current: BMD 0.973 g/cm2, Z-score 0.4, T-score -0.5, normal. Baseline: BMD 0.932 g/cm2. LEFT FEMUR, TOTAL: Current: BMD 0.994 g/cm2, Z-score 0.4, T-score -0.1, normal, 0.8% decrease from baseline (<5% change is not significant). Baseline: BMD 1.002 g/cm2. LEFT FOREARM RADIUS 33%: BMD 0.981 g/cm2, Z-score 2.9, T-score 1.2, normal, 0.7% decrease from baseline (<5% change is not significant). Baseline: BMD 0.988 g/cm2. AP SPINE L1-L2 (excluding L3 and L4): The data of L1-L4 has been changed to exclude the L3 and L4 vertebral bodies, because degenerative sclerosis at these levels may cause overestimation of lumbar spine density. Current: BMD 1.210 g/cm2, Z-score 0.9, T-score 0.4, normal, 3.6% decrease from baseline (<5% change is not significant). Baseline: BMD 1.255 g/cm2. IDENTIFIED RISK FACTORS: Menopause, height loss, history of fracture (adult), secondary osteoporosis (hyperthyroidism). HISTORY OF FRACTURE: Other. [facility]LY [facility] Medical History Transaminitis Hyperparathyroidism Morbid obesity Multinodular thyroid Breast mass Shortness of breath Laryngeal disorder Thyroid nodule Submandibular swelling Hypovitaminosis D Neck mass Neck pain Lymphadenopathy Essential hypertension Surgical History H/O colonoscopy History of laparoscopy History of D&C History of removal of cyst History of appendectomy History of tonsillectomy Family History Father Hypertension Prostate cancer Mother Hypertension Diabetes Dementia Social History Household Members Other:: lives alone Housing: Apartment Alcohol intake: current Alcohol intake frequency: holidays/special occasions only Alcohol type: wine and hard liquor Patient Tobacco Use Status: Never used Tobacco e-Cigarette/Vaping Use: Never Used Second Hand Smoke Exposure: Yes service: No Current occupational status: retired Current occupation: Works -[employer] Current occupational exposures/hazards: No Cognitive needs: No Hearing needs: No Vision needs: Yes Female Reproductive History Menstrual Age of Menarche: 18 Physical Exam Vital Signs: Last Vital Signs Pulse 82 09/15/24 13:45 BP 128/78 09/15/24 13:45 BMI result Body Mass Index 41.8 Assessment & Plan Assessment & Plan (1) Multinodular thyroid: Code(s): E04.2 - Nontoxic multinodular goiter Category: Medical Plan: Patient with no family history of thyroid cancer, with no history of head or neck radiation coming in today for follow up of multinodular goiter. Diagnosed with thyroid nodules in 2020. Underwent FNA in July 2021 of the left dominant lower lobe nodule measuring 1.8 cm at the time, which was benign. She also had a lymph node on the same side biopsied that was negative for malignant cells, however showed some inflammatory cells. She does not have any compressive symptoms. TSH 06/09 was unremarkable. t ultrasound from December 2023 showed growth in the side of the nodule that is significant which measured 2 cm in the largest dimension, solid isoechoic TR 4 nodule. We repeated a thyroid ultrasound done 08/03/2024 which again showed further significant increase in the size of the nodule. This now measures 2.5 cm in the maximum dimension. 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 Afirma results are pending. I explained to the patient that this is a 6-18% chance of malignancy in nodules that come back as AUS. We will follow up on the Afirma results. Plan: -follow up on Afirma (2) Hyperparathyroidism: Code(s): E21.3 - Hyperparathyroidism, unspecified Category: Medical Plan: Patient with elevated PTH levels in the range of 90-100 since at least 2020. Has had normal calcium levels. Normal vitamin-D levels. Phosphorus most recently noted to be slightly low. This is concerning for possibly primary hyperparathyroidism vs normoclacemic hyperparathyrodiism. However she used to be on hydrochlorothiazide, which could result in some of the hypercalcemia or unmasking of hyperparathyroidism. At this time she has been off hydrochlorothiazide for the past 3 months hence we will repeat all her labs. I have also ordered a 24 hour urine calcium and creatinine to be done. She is noted to have significantly low nutritional intake of calcium, so I have asked her to increase that for at least 8 weeks and then do repeat labs. Patient is above the age of 50, has no history of osteoporosis with normal forearm on bone density done in 2021, she does not have any significant symptoms of hypercalcemia, no history of kidney stones. Her GFR is however less than 60. We will wait for the results of the 24 hour urine calcium to see if she has any indication for surgery. On previous thyroid ultrasound she was also noted to have a left lymph node that was biopsied in July 2021 and showed inflammatory cells with some suspicion of parathyroid adenoma. This could possibly be the culprit lesion. Plan: -continue increased intake of calcium since initial visit 07/27 and do labs in another 1-2 weeks -follow up results 24 hour urine calcium as well as repeat labs (3) Essential hypertension: Code(s): I10 - Essential (primary) hypertension Category: Medical Plan: Blood pressure previously noted to be elevated. She follows with Nephrology and most recently increased her dose of nifedipine from 60 daily to 60 mg b.i.d.. Blood pressure better controlled today. She is also on losartan 50 mg daily. She is noted to have obstructive sleep apnea though she does not use CPAP. She was also diagnosed with hypertension in her 30s. Given young age of diagnosis, requiring titration up of her blood pressure medications and given there is an increased prevalence of primary hyperaldosteronism patients with obstructive sleep apnea, I will screen her for primary hyperaldosteronism. Have to keep in mind that she is on losartan which can cause falsely elevated renin levels. Have asked her to monitor her blood pressure at home. Plan: -check BMP, renin, aldosterone Plan See above Patient Instructions: I will inform you of your Afirma results on the portal as soon as they are back I will see you back in October, please do all the blood work and 24 hr urine test for that appointment 24 hr urine collection instructions You have been asked to collect your urine for 24 hours to assess for calcium excretion. You must choose a 24 hour period of time when you will be home. The morning of the first day, DISCARD the FIRST morning void and then note the time. You will collect every single void from then on for 24 hours. For example, if you wake up at 6am and urinate, flush down that void. You will then collect every drop of urine all day and all night through 6am the following day. You will urinate one last time at 6am for the collection. The jug of urine must be kept in the refrigerator until you bring it to the lab.You have been asked to collect your urine for 24 hours to assess for calcium excretion. You must choose a 24 hour period of time when you will be home. The morning of the first day, DISCARD the FIRST morning void and then note the time. You will collect every single void from then on for 24 hours. For example, if you wake up at 6am and urinate, flush down that void. You will then collect every drop of urine all day and all night through 6am the following day. You will urinate one last time at 6am for the collection. The jug of urine must be kept in the refrigerator until you bring it to the lab. Coding Level of Care Code Est Pt Level 3 (99708) Diagnoses Multinodular thyroid E04.2 Hyperparathyroidism E21.3 Essential hypertension I10
== END 2024-09-15 14:31 | disposition home or self-care (01) ==
LOC: HO.ENCR 13:42
PROVIDERS: PCP Internal Medicine; Visit Provider Student in an Organized Health Care Education/Training Program
DX: E04.2 Nontoxic multinodular goiter (principal); E21.3 Hyperparathyroidism, unspecified; I10 Essential (primary) hypertension
CPT/HCPCS: 99213

== ENCOUNTER → 2024-09-15 13:42 | Outpatient (BNVA) | payer MEDICARE, SELFPAY | PROVIDERS: PCP Internal Medicine; Visit Provider Student in an Organized Health Care Education/Training Program | DX: E04.2 Nontoxic multinodular goiter (principal); E21.3 Hyperparathyroidism, unspecified; I10 Essential (primary) hypertension | CPT/HCPCS: 99212 ==

== ENCOUNTER 2024-10-20 14:58 | Outpatient (AMB) | payer MEDICARE, SELFPAY ==
--- NOTE | 2024-10-20 15:00 | A.OFFPC_ITS ---
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 The patient reports chronic fatigue and lack of energy for an unspecified duration. She notices being tired continuously and reports that she is not standing up straight anymore, describing herself as hooked over. The bones in her back are causing discomfort since her last visit. 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 Although she considered physical therapy, she did not pursue it due to insurance limitations and financial constraints. Additionally, she has a history of a tubular adenoma found in a colonoscopy performed in 2014. The patient was due for another colonoscopy before 2024 but was previously offered Cologuard screening, which was not completed due to complications and difficulties with the process. Her previous screenings indicated tubular adenoma and unremarkable colonic mucosa. She also suffers from a neck strain that she attributes to past physical activities such as gymnastics and cheerleading. She recently underwent a thyroid biopsy which was difficult due to the large muscles in her neck. 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 The patient expresses concerns with weight management, reporting improvements with diet adjustments but struggling to reduce her weight below 244 pounds. She shares dietary changes, including increased consumption of fish and chicken rather than beef. Gastrointestinal symptoms have improved since reducing meat intake. - Mammogram performed in 2023, result no rmal - Bone density screening completed, show ing normal results - Due for tetanus and pneumococcal vacci nations - Previous pneumonia vaccination at age 61; hesitant for current vaccination due to past negative experience - Needs cholesterol re-evaluation, with slight elevation in previous blood work - Emphasized healthy dietary changes - Advised on weight management and the b enefits of decreased sugar intake [facility] Medical History Transaminitis Hyperparathyroidism Morbid obesity Multinodular thyroid Breast mass Shortness of breath Laryngeal disorder Thyroid nodule Submandibular swelling Hypovitaminosis D Neck mass Neck pain Lymphadenopathy Essential hypertension Surgical History H/O colonoscopy History of laparoscopy History of D&C History of removal of cyst History of appendectomy History of tonsillectomy Family History Father Hypertension Prostate cancer Mother Hypertension Diabetes Dementia Social History Household Members Other:: lives alone Housing: Apartment Alcohol intake: current Alcohol intake frequency: holidays/special occasions only Alcohol type: wine and hard liquor Patient Tobacco Use Status: Never used Tobacco e-Cigarette/Vaping Use: Never Used Second Hand Smoke Exposure: Yes service: No Current occupational status: retired Current occupation: [employer] Current occupational exposures/hazards: No Cognitive needs: No Hearing needs: No Vision needs: Yes Female Reproductive History Menstrual Age of Menarche: 18 Questionnaire PHQ-9 Over the last 2 weeks, how often have you been bothered by any of the following problems? 1. Little interest or pleasure in doing things: not at all 2. Feeling down, depressed, or hopeless: not at all 3. Trouble falling or staying asleep, or sleeping too much: not at all 4. Feeling tired or having little energy: nearly every day 5. Poor appetite or overeating: not at all 6. Feeling bad about yourself - or that you are a failure or have let yourself or your family down: not at all 7. Trouble concentrating on things, such as reading the newspaper or watching television: not at all 8. Moving or speaking so slowly that other people could have noticed. Or the opposite - being so fidgety or restless that you have been moving around a lot more than usual: not at all 9. Thoughts that you would be better off or of hurting yourself in some way: not at all Total score: 3 Depression Screening Interpretation: Negative Depression Screening Done: Yes 90727 - PHQ-9 Billing: Yes Source: Developed by Drs. Jose Kenny, Janee Self, Husam Asher and colleagues, with an educational jennifer from [employer]. Thrive Questionnaire Date Thrive assessed: 10/19/24 I am a: Patient What is your living situation today?: I have a steady place to live Within the past 12 months, did the food you bought not last and you didn't have the money to get more?: I choose not to answer this question Within the past 12 months, did you worry whether your food would run out before you got money to buy more?: I choose not to answer this question Do you have trouble paying for medicines?: I choose not to answer this question Do you have trouble getting transportation to medical appointments?: I choose not to answer this question Do you have trouble paying your heating and electricity bill?: I choose not to answer this question Do you have trouble taking care of your child, family member or friend?: I choose not to answer this question Do you have trouble with day-to-day activities such as bathing, preparing meals, shopping, managing finances, etc.?: I choose not to answer this question Are you currently unemployed and looking for a job?: I choose not to answer this question Are you interested in more education?: I choose not to answer this question Please select the resources that you would like help with: None Currently or been in a relationship where the following occur: I choose not to answer THRIVE Score: 0 AUDIT C Alcohol Use Questionnaire (AUDIT-C) 1. How often do you have a drink containing alcohol?: 2-3 times a week 2. How many drinks containing alcohol do you have on a typical day when you are drinking?: 1 or 2 3. How often do you have six or more drinks on one occasion?: Never Total Score: 3 ARIEL-7 AMB Questionnaire ARIEL-7 Date ARIEL - 7 assessed: 06/03/24 Feeling nervous, anxious, or on edge: 0 = Not at all Not being able to stop or control worryin = Not at all Worrying too much about different things: 0 = Not at all Trouble relaxin = Not at all Being so restless that it is hard to sit still: 0 = Not at all Becoming easily annoyed or irritable: 0 = Not at all Feeling afraid as if something awful might happen: 0 = Not at all Total ARIEL-7 score (0-4 normal; 5-9 mild; 10-14 moderate; 15-21 severe): 0 Source: Developed by Drs. Jose Kenny, Janee Self, Husam Asher and colleagues, with an educational jennifer from [employer]. ARIEL-7 Assessment Billing ARIEL-7 Assessment Tool: ARIEL-7 Assessment 25093 Review of Systems Const All systems reviewed & are unremarkable except as noted in HPI and below ENT Reports neck pain Card Denies chest pain at rest, Denies chest pain with activity, Denies edema, Denies irregular heart rhythm, Denies claudication, Denies dyspnea, Denies dyspnea on exertion, Denies orthopnea, Denies paroxysmal nocturnal dyspnea and Denies slow heart rate Resp Denies cough, Denies dyspnea and Denies dyspnea on exertion GI Denies abdominal pain, Denies change in bowel habits, Denies excessive flatus, Denies nausea and Denies vomiting Denies urinary incontinence, Denies urinary hesitancy and Denies urinary urgency Musc Denies abnormal gait, Reports back pain, Denies atrophy, Denies deformity, Denies limited range of motion and Reports neck pain Skin/Breast Denies bleeding lesions, Denies changing lesions and Denies rash Neuro Denies abnormal gait and Denies lack of coordination Physical exam (Primary Care) Vital Signs: Last Vital Signs BP 136/78 10/20/24 15:05 BMI result Body Mass Index 40.8 BMI Assessment/Plan discussion: High BMI High, discussed plan: lifestyle, weight reduction, dietary and physical activity Tobacco/Smoking Status: Tobacco use Status Tobacco use date assessed 06/03/24 10/20/24 15:08 Patient Tobacco Use Status Never used Tobacco 10/20/24 15:08 e-Cigarette/Vaping Use Never Used 10/20/24 15:08 PHQ-9: PHQ-9 Score PHQ-9: Total score 3 10/20/24 15:29 Depression Screening Interpretation: Negative Thrive Assessment: Date of Thrive Assessment Date Thrive assessed 10/19/24 10/20/24 15:08 Currently or been in a relationship where the following occur: I choose not to answer HENMT Head: Yes normal to inspection, Yes normocephalic and Yes atraumatic Ears: external ears normal Eyes General: appearance normal, both eyes and all related structures Eyelids: Yes eyelids normal Conjunctivae: conjunctivae normal Neck Neck: Yes normal visual inspection and Yes supple Resp Effort & Inspection: normal respiratory effort Auscultation: clear to auscultation bilaterally Cardio Jugular venous distension: no JVD Rate: regular rate Rhythm: regular rhythm Heart sounds: S1 normal heart sound present and S2 normal heart sound present GI Inspection: Yes normal to inspection Palpation (GI): Soft to palpation and nontender Auscultation: normal bowel sounds Skin General skin exam: no rashes or lesions noted Neuro General: no focal motor deficits Extrem General: Yes full ROM Psych Appearance: grossly normal Office Procedures Flu Questionnaire Does the patient have a severe egg allergy?: No Immunizations Fluarix Triv [id number] (PF) 45 mcg (15 mcg x 3)/0.5 mL IM syringe Performing Provider: Leticia Grayson MD [facility] Documented (not given) by: BOB Yepez on 10/20/24 15:09 Reason Not Given: Patient Refused Coding Level of Care Code Est Pt Level 3 (92654) Est Pt Prev Care >65y(31612) Diagnoses Physical exam Z00.00 Neck pain M54.2 Morbid obesity E66.01 Hyperparathyroidism E21.3 Additional Codes ARIEL-7 Assessment Billing - ARIEL-7 Assessment Tool: ARIEL-7 Assessment 22493 ([id number]) PHQ-9 - 93085 - PHQ-9 Billing: Yes ([id number]) Time Spent (min) 33 Assessment & Plan Assessment & Plan (1) Physical exam: Code(s): Z00.00 - Encounter for general adult medical examination without abnormal findings Category: Medical (2) Neck pain: Code(s): M54.2 - Cervicalgia Category: Medical (3) Morbid obesity: Code(s): E66.01 - Morbid (severe) obesity due to excess calories Category: Medical (4) Hyperparathyroidism: Code(s): E21.3 - Hyperparathyroidism, unspecified Category: Medical Plan - Back pain and muscle strain: Prescribe muscle relaxant as needed and suggest physical therapy evaluation; avoid NSAIDs due to gastrointestinal sensitivity and potential blood pressure impact - Tubular adenoma history: Discuss options for follow-up colonoscopy - Hypercholesterolemia: Initiate lifestyle modification with emphasis on diet; plan to repeat lipid profile - Weight management: Encourage continued healthy eating habits, consider consultation with data entry technician for advanced weight management options - Vaccination: Consider administration of tetanus and pneumococcal vaccines Patient was informed and verbally consented to the use of an ambient scribe for clinic note documentation during this visit. I have advised the patient on the potential benefits of muscle relaxants prescribed on an as-needed basis for her neck strain, emphasizing use at bedtime due to sedative effects. I discussed the necessity of follow-up for her hypercholesterolemia and encouraged lifestyle modifications, possibly consulting an data entry technician to explore advanced pharmacologic weight management options. I reiterated the importance of routine screening, including colonoscopy given her history of tubular adenomas, explaining its importance in early detection and prevention. I discussed vaccination options, recommending tetanus and pneumococcal vaccines. She expressed hesitance due to past experiences but I reviewed the benefits and outlined the purpose of each vaccine, promoting an informed decision upon her situation. Orders: Orders Influenza [id number] Immunization Today Z23 - Encounter for immunization Lipid Panel Today E78.5 - Hyperlipidemia, unspecified Comprehensive [place]. Panel Fast Today Z00.00 - Encounter for general adult medical examination without abnormal findings Medications: New cyclobenzaprine 10 mg PO BEDTIME PRN 7 tabs 0RF muscle spasm 7 days Patient Instructions: - Use prescribed muscle relaxant as needed at bedtime for neck strain - Continue dietary improvements focusing on vegetables, lean proteins, and controlled carbohydrate intake - Plan for cholesterol re-evaluation - Consider vaccinations for tetanus and pneumococcal disease; weigh benefits against personal concerns - Monitor symptoms and follow up for any changes in condition or new symptoms - Pursue colonoscopy scheduling and consult with data entry technician regarding weight management strategies if needed
[2024-10-20 15:05] VITALS: BP 136/78; BMI 40.8
== END 2024-10-20 15:53 | disposition home or self-care (01) ==
PROVIDERS: PCP Internal Medicine; Visit Provider Internal Medicine
DX: Z00.00 Encounter for general adult medical examination without abnormal findings (principal); M54.2 Cervicalgia; E66.01 Morbid (severe) obesity due to excess calories; E21.3 Hyperparathyroidism, unspecified; Z68.41 Body mass index [BMI] 40.0-44.9, adult

== ENCOUNTER → 2024-10-20 14:58 | Outpatient (BNVA) | payer MEDICARE, SELFPAY | PROVIDERS: PCP Internal Medicine; Visit Provider Internal Medicine | DX: Z00.01 Encounter for general adult medical examination with abnormal findings (principal); M54.2 Cervicalgia; E66.01 Morbid (severe) obesity due to excess calories; E21.3 Hyperparathyroidism, unspecified; I10 Essential (primary) hypertension | CPT/HCPCS: 96127; 99212; 99397 ==

== ENCOUNTER 2025-02-04 11:16 | Outpatient (AMB) | payer MEDICARE, SELFPAY ==
[2025-02-04 11:19] VITALS: BP 124/70; PULSE 96; O2SAT 100; BMI 39.6
--- NOTE | 2025-02-04 11:19 | MHC.OFFVIS ---
Vital Signs 02/04/25 11:19 Height 5 ft 5 in Weight 238 lb 1.588 oz BMI 39.6 BP 124/70 Blood Pressure Location Rt brachial Position Sitting Pulse 96 Pulse Source Pulse Oximeter Pulse Oximetry (%) 100 Oxygen Delivery Method Room Air Intake Visit Reasons: thyroid nodule/ hyperparathyroidism Intake Note: Patient presents today for a follow-up o Thyroid Nodule & Hyperparathyroidism Cdl Service Technician Required: No Accompanied by: Self / Same As Patient Allergies amoxicillin Allergy (Intermediate, Verified 10/20/24 15:21) diarrhea dicyclomine Allergy (Intermediate, Verified 10/20/24 15:21) BP spike Medication List - Last Reconciled 02/04/25 by Verna Johnson MD cyclobenzaprine 10 mg PO BEDTIME PRN 7 days losartan 50 mg PO DAILY 90 days nifedipine ER 60 mg PO BID HPI Comments Details: 69 YO F with PMHx of a Thyroid Nodule who is seen in F/U for a MNG and hyperparathyroidism. She is here today to discuss the results of the thyroid biopsy of the left lower pole 0.5 cm nodule. MNG HPI from prior visit Was initially diagnosed with a multinodular thyroid in February 2021 with a thyroid US revealing multiple bilateral nodules, including a 1.9 cm LLP nodule. This also revealed a 1.2 cm exophytic lesion posterior to the L lobe which apepared to represent a lymph node. 07/05/2021 for FNA biopsy, but was unable to tolerate this due to extreme anxiety. Procedure was aborted and she was to be scheduled with IR for FNA under conscious sedation. FNA biopsy by Dr. Berrios 08/03/2021 of a LLP 1.9 cm thyroid nodule, with benign cytology. The 1.2 cm lesion posterior to the L lobe of the thyroid was also biopsied, with cytology indeterminate, but suspicious for parathyroid cells. There was no malignancy identified. Ultrasound 08/03/2024 showed significant increase in the size of the left lower pole dominant nodule now measuring 2.5 x 1.8 x 1.7 cm, underwent FNA of this nodule on 09/08/24 which came back as AUS, Machias category 3 with Hurthle cell change. Afirma results came back with no result due to sample processing error.. No trouble swallowing, no difficulty breathing, no changes in voice. Sometimes at night feels gasping for air but has sleep apnea, doesnt wear CPAP. Does report some increased hair loss Denies any history of head or neck irradiation. Denies any family history of thyroid cancer. Hyperparathyroidism labs revealed hyperparathyroidism 09/01/2021 Calcium 10.0, Albumin 4.3, PTH 91 and Vitamin D 60.1. She had a DEXA scan 11/21/2021 which was WNL including the distal forearm. Most recent DEXA 01/10 showed normal bone density but no foraerm. She fractured a rib 10/09 from a sneezing episode. No other recent fractures, broke left leg at 2 years of age fall from monkey bar No kidney stones, no blood in urine Does have GFR <60 at 47 per labs 06/09 No constipation, sometimes gets loose stools, not too often , no increased urination, no brain fog, no abd pain regularly sometimes intermittent right abd pain but has cholelithiaisis Was previoulsy on HCTZ but off at least since 06/09 No family history of kidney stones, calcium problems Taking vitamin D 1000 units daily, no calcium supplements No milk, does have cheese 3-4 times a week, yogurt very few times Interval history : now doing milk in cereal, 1 serving yogurt daily , and it has been about 7 weeks since she made this change, waiting to do the 24 hour urine after 8-9 weeks of this change. Hypertension Diagnosed when she was in her 30s Does have history of sleep apnea but does not wear a CPAP Currently on losartan 50 mg daily and recently was having uncontrolled blood pressure with systolic in the 160s so nifedipine was increased to 60 mg twice daily from once daily. She is also following Nephrology. Blood pressure within goal today. Physical exam General: sitting comfortably in no acute distress HEENT: normocephalic/atraumatic,, moist oral mucosa Neck: supple, symmetrical, no thyromegaly ,palpable 1-2 cm left sided nodule , no dorsocervical or supraclavicular fat pads Cardiac: normal heart sounds Pulm: normal breath sounds B/L, no added breath sounds Abd: not distended, no tenderness Extremities: no edema, no signs of myxedema Laboratory Tests 09/01/21 10/06/21 08/22/22 07:24 08:07 07:00 Creatinine Estimated GFR Calcium 9.5 D 10.2 D Phosphorus 2.8 3.1 Albumin 4.3 4.4 25-OH Vitamin D Total 60.1 38.5 TSH Free T4 PTH Intact 91 H 75 H 81 H Calcium (PTH Intact) 10.0 10.1 10.0 01/20/24 06/05/24 06/05/24 08:09 07:46 07:46 Creatinine Estimated GFR 55 Calcium 9.8 Phosphorus Albumin 4.0 4.0 25-OH Vitamin D Total 31.6 31.6 TSH Free T4 PTH Intact Calcium (PTH Intact) 06/05/24 06/05/24 07:46 Unknown Creatinine 1.14 Estimated GFR 47 Calcium 9.8 Phosphorus 2.2 L Albumin 4.1 25-OH Vitamin D Total TSH 1.25 Free T4 0.98 PTH Intact 150.2 H 155.4 H Calcium (PTH Intact) US THYROID 08/03/24 I reviewed the images myself which show the left lower lobe dominant nodule CLINICAL INFORMATION: Nontoxic multinodular goiter. COMPARISON: Thyroid ultrasound 01/13/2024 and 10/21/2022. Ultrasound-guided thyroid biopsy 08/03/2021. CT soft tissue neck 02/13/2021. TECHNIQUE: Linear transducer grayscale and color Doppler examination with attention to the region of the thyroid. FINDINGS: SIZE: Measurements of the thyroid lobes and nodules are given in sagittal, anteroposterior and transverse dimensions respectively. Right Thyroid Lobe: 3.8 x 1.6 x 2.0 cm, volume 6.5 mL. Previously 3.4 x 1.4 x 1.7 cm, volume 4.1 mL. Parenchyma: The gland echotexture is homogeneous. Thyroid vascularity is normal. Left Thyroid Lobe: 4.8 x 1.9 x 2.1 cm, volume 9.8 mL. Previously 4.6 x 2.2 x 2.2 cm, volume 12.1 mL. Parenchyma: The gland echotexture is homogeneous. Thyroid vascularity is normal. Isthmus: 0.7 cm in maximum AP dimension. Previously 0.4 cm. Estimated total number of nodules greater than or equal to 1 cm: 1. Apiculturist nodules are described as follows: 1. Location: Right mid pole. Size: 0.3 x 0.4 x 0.3 cm, volume 0.03 mL. Nodule characteristics: Composition: Solid (2). Echogenicity: Hyperechoic (1). Shape: Not taller than wide (0). Margins: Smooth (0). Echogenic Foci: None (0). ACR TI-RADS total points: 3 ACR TI-RADS category: 3 2. Location: Isthmus. Size: 0.4 x 0.5 x 0.5 cm, volume 0.06 mL. Nodule characteristics: Composition: Solid (2). Echogenicity: Hypoechoic (2). Shape: Not taller than wide (0). Margins: Smooth (0). Echogenic Foci: None (0). ACR TI-RADS total points: 4 ACR TI-RADS category: 4 3. Location: Left lower pole. Size: 2.5 x 1.8 x 1.7 cm, volume 4.1 mL. Previously: 2.0 x 1.6 x 1.9 cm, volume 3.2 mL. Nodule characteristics: Composition: Solid (2). Echogenicity: Hyperechoic (1). Shape: Not taller than wide (0). Margins: Ill-defined (0). Echogenic Foci: None (0). ACR TI-RADS total points: 3 Previous: 6 ACR TI-RADS category: 3 Previous: 4 Significant change in size (>/= 20% in 2 dimensions and minimal increase of 2 mm or 50% or greater increase in volume): Yes Change in features: Yes Change in ACR TI-RADS risk category: Yes 4. Location: Left mid pole. Size: 0.5 x 0.4 x 0.5 cm, volume 0.05 mL. Nodule characteristics: Composition: Cystic(0). ACR TI-RADS total points: 0 ACR TI-RADS category: 1 NODES: No lymphadenopathy is seen in the tissue surrounding the thyroid gland. US/US thyroid IMPRESSION: 1. Bilateral thyroid nodules are seen, as detailed. The increased 2.5 cm TR 3 nodule at the lower pole of the left lobe meets ACR biopsy criteria and is amenable to ultrasound-guided biopsy, if clinically indicated and not already performed. 2. There is an asymmetric goiter, left lobe greater than right. US THYROID 01/10 I reviewed the images myself which show the left lower lobe dominant nodule CLINICAL INFORMATION: Nontoxic multinodular goiter. COMPARISON: Thyroid ultrasound 10/21/2022 and 03/14/2021. Ultrasound-guided thyroid biopsy 08/03/2021. CT soft tissue neck 02/13/2021. TECHNIQUE: Linear transducer dodd-scale and color Doppler examination with attention to the region of the thyroid. FINDINGS: SIZE: Measurements of the thyroid lobes and nodules are given in sagittal, anteroposterior and transverse dimensions respectively. Right Thyroid Lobe: 3.4 x 1.4 x 1.7 cm, volume 4.1 mL. Previously 3.5 x 1.5 x 1.5 cm, volume 4.0 mL. Parenchyma: The gland echotexture is heterogeneous. Thyroid vascularity is normal. Left Thyroid Lobe: 4.6 x 2.2 x 2.2 cm, volume 12.1 mL. Previously 5.0 x 2.1 x 1.5 cm, volume 8.3 mL. Parenchyma: The gland echotexture is heterogeneous. Thyroid vascularity is normal. Isthmus: 0.4 cm in maximum AP dimension. Previously 0.4 cm. Estimated total number of nodules greater than or equal to 1 cm: 1. Apiculturist nodules are described as follows: 1. Location: Right upper/mid pole. Size: 0.6 x 0.5 x 0.3 cm, volume 0.05 mL. Previously: 0.9 x 0.8 x 0.6 cm, volume 0.2 mL. Nodule characteristics: Composition: Mixed cystic and solid (1). Echogenicity: Hypoechoic (2). Shape: Not taller than wide (0). Margins: Ill-defined (0). Echogenic Foci: Comet-tail artifacts (0). ACR TI-RADS total points: 3 Previous: 4 ACR TI-RADS category: 3 Previous: 4 Significant change in size (>/= 20% in 2 dimensions and minimal increase of 2 mm or 50% or greater increase in volume): Change in features: Change in ACR TI-RADS risk category: 2. Location: Right upper pole. Size: 0.3 x 0.4 x 0.2 cm, volume 0.02 mL. Previously: 0.4 x 0.3 x 0.2 cm, volume 0.01 mL. Nodule characteristics: Composition: Solid/almost completely solid (2). Echogenicity: Hypoechoic (2). Shape: Not taller than wide (0). Margins: Ill-defined (0). Echogenic Foci: None (0). ACR TI-RADS total points: 4 Previous: 4 ACR TI-RADS category: 4 Previous: 4 Significant change in size (>/= 20% in 2 dimensions and minimal increase of 2 mm or 50% or greater increase in volume): Change in features: Change in ACR TI-RADS risk category: 3. Location: Left lower pole. Size: 2.0 x 1.6 x 1.9 cm, volume 3.2 mL. Previously: 1.8 x 1.6 x 1.4 cm, volume 2.2 mL. Nodule characteristics: Composition: Solid/almost completely solid (2). Echogenicity: Isoechoic (1). Shape: Taller than wide (3). Margins: Ill-defined (0). Echogenic Foci: None (0). ACR TI-RADS total points: 6 Previous: 3 ACR TI-RADS category: 4 Previous: 3 Significant change in size (>/= 20% in 2 dimensions and minimal increase of 2 mm or 50% or greater increase in volume): Yes Change in features: No Change in ACR TI-RADS risk category: Yes NODES: No lymphadenopathy is seen in the tissue surrounding the thyroid gland. US/US thyroid IMPRESSION: 2.0 cm left lower pole TR4 thyroid nodule meets criteria for biopsy. Fine-needle aspiration recommended. This study was presented today, 01/14/2024 at 9:00 AM, for interpretation. PSA staff will provide results to referring provider at this time. BONE DENSITOMETRY 12/2023 CLINICAL INDICATION: Nontoxic multinodular goiter. COMPARISON: Baseline BD dated 11/21/2021. TECHNIQUE: Using a [employer] DXA System (software version: 13.1) manufactured by [employer], dual-energy x-ray absorptiometry was performed of the lumbar spine, left hip, and left forearm radius 33%. The images are of good technical quality. Summary results are attached. FINDINGS: LEFT FEMUR, NECK: Current: BMD 0.973 g/cm2, Z-score 0.4, T-score -0.5, normal. Baseline: BMD 0.932 g/cm2. LEFT FEMUR, TOTAL: Current: BMD 0.994 g/cm2, Z-score 0.4, T-score -0.1, normal, 0.8% decrease from baseline (<5% change is not significant). Baseline: BMD 1.002 g/cm2. LEFT FOREARM RADIUS 33%: BMD 0.981 g/cm2, Z-score 2.9, T-score 1.2, normal, 0.7% decrease from baseline (<5% change is not significant). Baseline: BMD 0.988 g/cm2. AP SPINE L1-L2 (excluding L3 and L4): The data of L1-L4 has been changed to exclude the L3 and L4 vertebral bodies, because degenerative sclerosis at these levels may cause overestimation of lumbar spine density. Current: BMD 1.210 g/cm2, Z-score 0.9, T-score 0.4, normal, 3.6% decrease from baseline (<5% change is not significant). Baseline: BMD 1.255 g/cm2. IDENTIFIED RISK FACTORS: Menopause, height loss, history of fracture (adult), secondary osteoporosis (hyperthyroidism). HISTORY OF FRACTURE: Other. [facility] Medical History Transaminitis Hyperparathyroidism Morbid obesity Multinodular thyroid Breast mass Shortness of breath Laryngeal disorder Thyroid nodule Submandibular swelling Hypovitaminosis D Neck mass Neck pain Lymphadenopathy Essential hypertension Surgical History H/O colonoscopy History of laparoscopy History of D&C History of removal of cyst History of appendectomy History of tonsillectomy Family History Father Hypertension Prostate cancer Mother Hypertension Diabetes Dementia Social History Household Members Other:: lives alone Housing: Apartment Alcohol intake: current Alcohol intake frequency: holidays/special occasions only Alcohol type: wine and hard liquor Patient Tobacco Use Status: Never used Tobacco e-Cigarette/Vaping Use: Never Used Second Hand Smoke Exposure: Yes service: No Current occupational status: retired Current occupation: Works -nights- [employer] Current occupational exposures/hazards: No Cognitive needs: No Hearing needs: No Vision needs: Yes Female Reproductive History Menstrual Age of Menarche: 18 Physical Exam Vital Signs: Last Vital Signs Pulse 96 02/04/25 11:19 BP 124/70 02/04/25 11:19 Pulse Ox 100 02/04/25 11:19 Oxygen Delivery Method Room Air 02/04/25 11:19 BMI result Body Mass Index 39.6 Assessment & Plan Assessment & Plan (1) Essential hypertension: Code(s): I10 - Essential (primary) hypertension Category: Medical Plan: Blood pressure previously noted to be elevated. She follows with Nephrology and most recently increased her dose of nifedipine from 60 daily to 60 mg b.i.d.. Blood pressure better controlled today. She is also on losartan 50 mg daily. She is noted to have obstructive sleep apnea though she does not use CPAP. She was also diagnosed with hypertension in her 30s. Given young age of diagnosis, requiring titration up of her blood pressure medications and given there is an increased prevalence of primary hyperaldosteronism patients with obstructive sleep apnea, I will screen her for primary hyperaldosteronism. Have to keep in mind that she is on losartan which can cause falsely elevated renin levels. Have asked her to monitor her blood pressure at home. She has not done labs yet. Plan: -check BMP, renin, aldosterone (2) Multinodular thyroid: Code(s): E04.2 - Nontoxic multinodular goiter Category: Medical Plan: Patient with no family history of thyroid cancer, with no history of head or neck radiation coming in today for follow up of multinodular goiter. Diagnosed with thyroid nodules in 2020. Underwent FNA in July 2021 of the left dominant lower lobe nodule measuring 1.8 cm at the time, which was benign. She also had a lymph node on the same side biopsied that was negative for malignant cells, however showed some inflammatory cells. She does not have any compressive symptoms. TSH 06/09 was unremarkable. t ultrasound from December 2023 showed growth in the side of the nodule that is significant which measured 2 cm in the largest dimension, solid isoechoic TR 4 nodule. We repeated a thyroid ultrasound done 08/03/2024 which again showed further significant increase in the size of the nodule. This now measures 2.5 cm in the maximum dimension. I reviewed the images myself and given significant change in size this met criteria for FNA.underwent FNA of this nodule on 09/08/24 which came back as AUS, Machias category 3 with Hurthle cell change. Afirma results came back as no result due to sample processing error. I explained to the patient that this is a 6-18% chance of malignancy in nodules that come back as AUS. Today she is complaining of some new compressive symptoms as well as hair loss. We will check labs. Plan: -scheduled for repeat FNA of the left lower 2.5 cm thyroid nodule and a follow up 2 weeks after to discuss results -ordered TSH, free T4 (3) Hyperparathyroidism: Code(s): E21.3 - Hyperparathyroidism, unspecified Category: Medical Plan: Patient with elevated PTH levels in the range of 90-100 since at least 2020. Has had normal calcium levels. Normal vitamin-D levels. Phosphorus most recently noted to be slightly low. This is concerning for possibly primary hyperparathyroidism vs normoclacemic hyperparathyrodiism. However she used to be on hydrochlorothiazide, which could result in some of the hypercalcemia or unmasking of hyperparathyroidism. At this time she has been off hydrochlorothiazide for the past 3 months hence we will repeat all her labs. I have also ordered a 24 hour urine calcium and creatinine to be done. She is noted to have significantly low nutritional intake of calcium, so I have asked her to increase that for at least 8 weeks and then do repeat labs. Patient is above the age of 50, has no history of osteoporosis with normal forearm on bone density done in 2021, she does not have any significant symptoms of hypercalcemia, no history of kidney stones. Her GFR is however less than 60. We will wait for the results of the 24 hour urine calcium to see if she has any indication for surgery. On previous thyroid ultrasound she was also noted to have a left lymph node that was biopsied in July 2021 and showed inflammatory cells with some suspicion of parathyroid adenoma. This could possibly be the culprit lesion. She was supposed to do 24 hour urine and blood work, however she has not done these. Plan: -ordered again 24 hour urine calcium, creatinine blood work -PTH and calcium also ordered to be done at outside lab Plan See above Orders: Orders Thyroid Stimulating Hormone Today E04.2 - Nontoxic multinodular goiter, E21.3 - Hyperparathyroidism, unspecified, I10 - Essential (primary) hypertension Calcium Today E04.2 - Nontoxic multinodular goiter, E21.3 - Hyperparathyroidism, unspecified, I10 - Essential (primary) hypertension Creatinine, 24 Hr Group Today E04.2 - Nontoxic multinodular goiter, E21.3 - Hyperparathyroidism, unspecified, I10 - Essential (primary) hypertension Comprehensive Met. Panel Today E04.2 - Nontoxic multinodular goiter, E21.3 - Hyperparathyroidism, unspecified, I10 - Essential (primary) hypertension Magnesium Today E04.2 - Nontoxic multinodular goiter, E21.3 - Hyperparathyroidism, unspecified, I10 - Essential (primary) hypertension Renin Today E04.2 - Nontoxic multinodular goiter, E21.3 - Hyperparathyroidism, unspecified, I10 - Essential (primary) hypertension Sodium, 24Hr Urine Group Today E04.2 - Nontoxic multinodular goiter, E21.3 - Hyperparathyroidism, unspecified, I10 - Essential (primary) hypertension Calcium 02/08/25 E21.3 - Hyperparathyroidism, unspecified Free T4 (Free Thyroxine) Today E04.2 - Nontoxic multinodular goiter, E21.3 - Hyperparathyroidism, unspecified, I10 - Essential (primary) hypertension Albumin Level Today E04.2 - Nontoxic multinodular goiter, E21.3 - Hyperparathyroidism, unspecified, I10 - Essential (primary) hypertension Calcium, Ionized Today E04.2 - Nontoxic multinodular goiter, E21.3 - Hyperparathyroidism, unspecified, I10 - Essential (primary) hypertension Phosphorus Today E04.2 - Nontoxic multinodular goiter, E21.3 - Hyperparathyroidism, unspecified, I10 - Essential (primary) hypertension Parathyroid Hormone Intact Today E04.2 - Nontoxic multinodular goiter, E21.3 - Hyperparathyroidism, unspecified, I10 - Essential (primary) hypertension Vitamin D 25-OH Total Today E04.2 - Nontoxic multinodular goiter, E21.3 - Hyperparathyroidism, unspecified, I10 - Essential (primary) hypertension Calcium, 24 Hr Ur Today E04.2 - Nontoxic multinodular goiter, E21.3 - Hyperparathyroidism, unspecified, I10 - Essential (primary) hypertension Albumin Level 02/08/25 E21.3 - Hyperparathyroidism, unspecified Parathyroid Hormone Intact 02/08/25 E21.3 - Hyperparathyroidism, unspecified Calcium, Ionized 02/08/25 E21.3 - Hyperparathyroidism, unspecified Patient Instructions: Do 24 hr urine collection at [facility], same day as you go for giving urine , do blood work 24 hr urine collection instructions You have been asked to collect your urine for 24 hours to assess for calcium excretion. You must choose a 24 hour period of time when you will be home. The morning of the first day, DISCARD the FIRST morning void and then note the time. You will collect every single void from then on for 24 hours. For example, if you wake up at 6am and urinate, flush down that void. You will then collect every drop of urine all day and all night through 6am the following day. You will urinate one last time at 6am for the collection. The jug of urine must be kept in the refrigerator until you bring it to the lab. Bring vitamin D bottle to next visit We will also book you for a repeat biopsy of your thyroid Do a set of blood work at [facility] Coding Level of Care Code Est Pt Level 3 (39892) Diagnoses Essential hypertension I10 Multinodular thyroid E04.2 Hyperparathyroidism E21.3
--- OUTSIDE RECORDS SUMMARY | 2025-02-04 13:46 | XMS_ITS | Encounter Summary ---
Author Organization [facility] Address [address] [phone] Phone Care Team Providers Care Semi Truck Driver Name Role Phone Marcel Hong MD Primary Care Provider [phone] Encounter Details Date Type Department Care Team (Late Contact Info) Description 08/12/2024 Office Communication [facility] [address] [phone] Gautam Hernandez MD [address] [phone] Social History Tobacco Use Types Packs/Day Years Used Date Smoking Tobacco: Never Alcohol Use Standard Drinks/Week Comments Yes 0 (1 standard drink = 0.6 oz pure alcohol) Alcoholic Drinks/day: Occasional social drink Comments Unknown Sex and Gender Information Value Date Recorded Sex Assigned at Not on file Legal Sex Female 5:04 PM EST Gender Identity Not on file Sexual Orientation Not on file documented as of this encounter Miscellaneous Notes * Telephone Encounter - Gautam Hernandez MD - 08/12/2024 11:28 AM EDT Nifedipine incr 60 bid 08/10/24 documented in this encounter Plan of Treatment Upcoming Encounters Date Type Department Care Team (Late st Contact Info) Description 04/26/2025 8:00 AM EDT Office Visit [facility] [address] [phone] Zofia Fraser ARNP [address] [phone] documented as of this encounter Visit Diagnoses Not on filedocumented in this encounter Care Teams Semi Truck Driver Relationship Specialty Start Date End Date Marcel Hong MD [address] [phone] PCP - General Nephrology 04/28/24 documented as of this encounter
--- OUTSIDE RECORDS SUMMARY | 2025-02-04 13:46 | XMS_ITS | Clinical Summary ---
Author Organization [facility] Address [address] [address] Phone Care Team Providers Care Scale Shooter Name Role Phone Marcel Hong MD Primary Care Provider [phone] Allergies Active Allergy Reactions Criticality Noted Date Comments Clonidine Other (see comments) 07/09/2024 Latex 04/23/2006 Lisinopril Other (see comments) 07/09/2024 Medications losartan (COZAAR) 50 MG tablet Take 1 tablet (50 mg total) by mouth 1 (one) time each day 30 tablet 2 07/09/2024 Active NIFEdipine XL (Procardia XL) 60 MG 24 hr tablet Take 1 tablet (60 mg total) by mouth in the morning and 1 tablet (60 mg total) in the evening. Do not crush, chew, or split.. 180 tablet 11/22/2024 5 Active Active Problems Problem Noted Date Diagnosed Date Hypertensive disorder 07/09/2024 Stage 3a chronic kidney disease 07/09/2024 Benign essential hypertension 07/09/2024 Encounters Date Type Department Care Team Description 11/22/2024 Refill [facility] [address] [address] Trinity Herman MA from Last 3 Months Family History Medical History Relation Comments Cancer Father prostate Hypertension Father Dementia Mother Diabetes Mother Heart disease Mother Hypertension Mother Diabetes Sibling sister Relation Status Comments Father Mother Alive Sibling Social History Tobacco Use Types Packs/Day Years Used Date Smoking Tobacco: Never Smokeless Tobacco: Never Tobacco Cessation:Counseling Given: Not Answered Alcohol Use Standard Drinks/Week Comments Yes 0 (1 standard drink = 0.6 oz pure alcohol) Alcoholic Drinks/day: Occasional social drink Comments Unknown Sex and Gender Information Value Date Recorded Sex Assigned at Not on file Legal Sex Female 5:04 PM EST Gender Identity Not on file Sexual Orientation Not on file Last Filed Vital Signs Vital Sign Reading Time Taken Comments Blood Pressure 118/80 10/22/2024 11:06 AM EST Pulse 80 10/22/2024 11:06 AM EST Temperature - - Respiratory Rate - - Oxygen Saturation 97% 07/09/2024 10:40 AM EDT Inhaled Oxygen Concentration - - Weight 111 kg (244 lb) 10/22/2024 11:06 AM EST Height 167.6 cm (5' 6 ) 04/05/2020 12:01 PM EDT Body Mass Index 39.38 04/05/2020 12:01 PM EDT Plan of Treatment Upcoming Encounters Date Type Department Care Team (Late st Contact Info) Description 04/26/2025 8:00 AM EDT Office Visit [facility] [address] [address] Zofia Fraser ARNP [address] [address] Health Maintenance Due Date Last Done Comments Breast Cancer Screening 1955 Pneumococcal Vaccine: 65+ Ye ars (1 of 2 - PCV) 1961 Colorectal Cancer Screening: Annual FOBT 2004 Colorectal Cancer Screening: Colonoscopy 2004 Colorectal Cancer Screening: Sigmoidoscopy 2004 Influenza Vaccine (#1) 2024 Hepatitis B Vaccine Aged Out No longe r eligible based on patient's age to complete this topic Insurance [facility] Care Teams Scale Shooter Relationship Specialty Start Date End Date Marcel Hong MD [address] [id number] PCP - General Nephrology 04/28/24
== END 2025-02-04 11:49 | disposition home or self-care (01) ==
LOC: HO.ENCR 11:17
PROVIDERS: PCP Internal Medicine; Visit Provider Student in an Organized Health Care Education/Training Program
DX: I10 Essential (primary) hypertension (principal); E04.2 Nontoxic multinodular goiter; E21.3 Hyperparathyroidism, unspecified
CPT/HCPCS: 99213

== ENCOUNTER → 2025-02-04 11:16 | Outpatient (BNVA) | payer MEDICARE, SELFPAY | PROVIDERS: PCP Internal Medicine; Visit Provider Student in an Organized Health Care Education/Training Program | DX: E04.2 Nontoxic multinodular goiter (principal); E21.3 Hyperparathyroidism, unspecified; I10 Essential (primary) hypertension | CPT/HCPCS: 99212 ==

== ENCOUNTER 2025-02-23 07:42 | Outpatient (AMB) | payer MEDICARE, SELFPAY ==
--- OUTSIDE RECORDS SUMMARY | 2025-02-23 07:45 | XMS_ITS | Clinical Summary ---
Author Organization [facility] Address [address] [address] Phone Care Team Providers Care Map Plotter Name Role Phone Marcel Hong MD Primary Care Provider [phone] Allergies Active Allergy Reactions Criticality Noted Date [...] crush, chew, or split.. 180 tablet 11/22/2024 Active Active Problems Problem Noted Date Diagnosed Date Hypertensive disorder 07/09/2024 Stage 3a chronic kidney disease 07/09/2024 Benign essential hypertension 07/09/2024 Family History Medical History Relation Comments Cancer [...] Office Visit [facility] [address] [address] Zofia Fraser ARNP [address] [address] Health Maintenance Due Date Last Done Comments Breast Cancer Screening 1955 Pneumococcal Vaccine: 65+ Ye ars (1 of 2 - PCV) 1961 Colorectal Cancer Screening: Annual FOBT 2004 Colorectal Cancer Screening: Colonoscopy 2004 Colorectal Cancer Screening: Sigmoidoscopy 2004 Influenza Vaccine (Season Ended) 2025 Hepatitis B Vaccine Aged Out No longe r eligible based on patient's age to complete this topic Insurance [facility] Care Teams Map Plotter Relationship Specialty Start Date End Date Marcel Hong MD [address] [address] PCP - General Nephrology 04/28/24
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
[2025-02-23 07:48] VITALS: BP 132/80; PULSE 82; RESP 20; TEMP 36.3; O2SAT 98; BMI 39.6
== END 2025-02-23 08:56 | disposition home or self-care (01) ==
LOC: HO.HMCH 07:43
PROVIDERS: PCP Internal Medicine; Visit Provider Internal Medicine
DX: M25.512 Pain in left shoulder (principal); M79.642 Pain in left hand; G44.319 Acute post-traumatic headache, not intractable; E21.3 Hyperparathyroidism, unspecified; I10 Essential (primary) hypertension; E04.1 Nontoxic single thyroid nodule

== ENCOUNTER → 2025-02-23 07:42 | Outpatient (BNVA) | payer MEDICARE, SELFPAY | PROVIDERS: PCP Internal Medicine; Visit Provider Internal Medicine | DX: I10 Essential (primary) hypertension (principal); E04.1 Nontoxic single thyroid nodule; E21.3 Hyperparathyroidism, unspecified; M54.2 Cervicalgia; M25.512 Pain in left shoulder; M79.642 Pain in left hand; G44.319 Acute post-traumatic headache, not intractable; E55.9 Vitamin D deficiency, unspecified; E66.01 Morbid (severe) obesity due to excess calories; E78.5 Hyperlipidemia, unspecified; S13.9XXA Sprain of joints and ligaments of unspecified parts of neck, initial encounter; W19.XXXA Unspecified fall, initial encounter; Y93.9 Activity, unspecified; Y92.9 Unspecified place or not applicable; Y99.9 Unspecified external cause status; Z68.39 Body mass index [BMI] 39.0-39.9, adult | CPT/HCPCS: 96127; 99212 ==

== ENCOUNTER 2025-03-02 07:38 | Outpatient (REF) | payer MEDICARE, SELFPAY ==
--- NOTE | 2025-03-02 08:35 | PM.PROC ---
Brief Operative Note Date of procedure: 03/02/25 Pre-op diagnosis: left inferior 2.5 cm thyroid nodule FNA biopsy Post-op diagnosis: same Procedure: THYROID FINE NEEDLE ASPIRATION PROCEDURE NOTE ? PROCEDURE PERFORMED: Ultrasound-guided FNA of thyroid nodule ? OPERATORS: Dr. Verna Johnson ? INDICATION: left inferior 2.5 cm thyroid nodule ; FNA performed to assess for malignancy ? DESCRIPTION OF PROCEDURE: The indications for FNA (to assess for malignancy) were reviewed with the patient in detail. Potential complications (e.g., bleeding, infection, damage to local structures, absence of clear diagnosis after FNA) were reviewed. Alternatives to FNA including conservative observation or surgery were described. The patient understood and agreed to proceed. This was documented by the signing of the written informed consent form. A time-out was performed to confirm the patient's identity and the site of planned FNA. The nodule of interest was identified using ultrasound (14 MHz linear array probe). The site of FNA was then draped in the usual fashion and carefully cleaned and prepared using alcohol swabs. The skin at the previously-identified site of needle insertion was iced and sprayed with numbing spray. Under ultrasound guidance, _4_ passes were performed using a 1.5-inch, 25-gauge needle, and sample was obtained via capillary action. The needle tip was clearly visualized to be within the nodule at the time of sampling for _4_ of _4_ passes The patient tolerated the procedure well. There were no immediate complications. A small adhesive bandage was applied, and the patient was advised to take acetaminophen (rather than NSAIDs) for any discomfort and to report any signs of inflammation/infection or marked swelling. IMPRESSION: Technically successful ultrasound-guided fine needle aspiration of left inferior 2.5 cm thyroid nodule . PLAN: The patient was advised that I will provide follow-up regarding the cytology result and any subsequent plans. Verna Johnson MD Endocrinology Attending Condition: stable Disposition: same day
== END 2025-03-02 07:39 | disposition home or self-care (01) ==
LOC: HO.US 07:38
PROVIDERS: PCP Internal Medicine; Visit Provider Student in an Organized Health Care Education/Training Program
DX: E04.1 Nontoxic single thyroid nodule (principal)
CPT/HCPCS: 10005; 88173; 88305

== ENCOUNTER → 2025-03-02 07:38 | Outpatient (BNV) | payer MEDICARE, SELFPAY | PROVIDERS: PCP Internal Medicine; Visit Provider Student in an Organized Health Care Education/Training Program | DX: E04.1 Nontoxic single thyroid nodule (principal) | CPT/HCPCS: 10005 ==

== ENCOUNTER 2025-03-16 12:31 | Outpatient (AMB) | payer MEDICARE, SELFPAY ==
[2025-03-16 12:57] VITALS: BP 108/64; PULSE 80; O2SAT 93; BMI 40.9
--- NOTE | 2025-03-16 12:57 | A.OFFVIS_ITS ---
Vital Signs 3 03/16/25 12:57 Height 5 ft 5 in Weight 245 lb 9.519 oz BMI 40.9 BP 108/64 Blood Pressure Location Lt brachial Position Sitting Pulse 80 Pulse Source Pulse Oximeter Pulse Oximetry (%) 93 Oxygen Delivery Method Room Air Intake Visit Reasons: Biopsy f/u Intake Note: Patient present today for biopsy results. Entry Manager Required: No Accompanied by: Self / Same As Patient Allergies amoxicillin Allergy (Intermediate, Verified 03/16/25 13:01) diarrhea dicyclomine Allergy (Intermediate, Verified 03/16/25 13:01) BP spike Medication List - Last Reconciled 03/16/25 by Verna Johnson MD losartan 50 mg PO DAILY 90 days nifedipine ER 60 mg PO BID HPI Comments Details: 69 YO F with PMHx of a Thyroid Nodule who is seen in F/U for a MNG and elevated PTH level MNG HPI from prior visit Was initially diagnosed with a multinodular thyroid in February 2021 with a thyroid US revealing multiple bilateral nodules, including a 1.9 cm LLP nodule. This also revealed a 1.2 cm exophytic lesion posterior to the L lobe which apepared to represent a lymph node. 07/05/2021 for FNA biopsy, but was unable to tolerate this due to extreme anxiety. Procedure was aborted and she was to be scheduled with IR for FNA under conscious sedation. FNA biopsy by Dr. Berrios 08/03/2021 of a LLP 1.9 cm thyroid nodule, with benign cytology. The 1.2 cm lesion posterior to the L lobe of the thyroid was also biopsied, with cytology indeterminate, but suspicious for parathyroid cells. There was no malignancy identified. Ultrasound 08/03/2024 showed significant increase in the size of the left lower pole dominant nodule now measuring 2.5 x 1.8 x 1.7 cm, underwent FNA of this nodule on 09/08/24 which came back as AUS, [place] category 3 with Hurthle cell change. Afirma results came back with no result due to sample processing error.. No trouble swallowing, no difficulty breathing, no changes in voice. Sometimes at night feels gasping for air but has sleep apnea, doesnt wear CPAP. Does report some increased hair loss Denies any history of head or neck irradiation. Denies any family history of thyroid cancer. Interval history 03/02/25: s/p FNA of the left inerior 2.5 cm nodule which came back benign this time but because results from 09/08/24 was AUS I have sent this for Afirma testing , results pending Will plan to repeat thyroid US in 1 year from now because of recent increase in size of the nodule Hyperparathyroidism labs revealed hyperparathyroidism 09/01/2021 Calcium 10.0, Albumin 4.3, PTH 91 and Vitamin D 60.1. She had a DEXA scan 11/21/2021 which was WNL including the distal forearm. Most recent DEXA 01/10 showed normal bone density but no foraerm. She fractured a rib 10/09 from a sneezing episode. No other recent fractures, broke left leg at 2 years of age fall from monkey bar No kidney stones, no blood in urine Does have GFR <60 at 47 per labs 06/09 No constipation, sometimes gets loose stools, not too often , no increased urination, no brain fog, no abd pain regularly sometimes intermittent right abd pain but has cholelithiaisis Was previoulsy on HCTZ but off at least since 06/09 No family history of kidney stones, calcium problems Taking vitamin D 1000 units daily (Nature plus ) no calcium supplements No milk, does have cheese 3-4 times a week, yogurt very few times Interval history : now doing milk in cereal, 1 serving yogurt almost every day and cheese 3-4 times a week vitamin D 1000 units daily Hypertension Diagnosed when she was in her 30s Does have history of sleep apnea but does not wear a CPAP Currently on losartan 50 mg daily and recently was having uncontrolled blood pressure with systolic in the 160s so nifedipine was increased to 60 mg twice daily from once daily. She is also following Nephrology. Blood pressure within goal today. Still hasnt done blood work Physical exam General: sitting comfortably in no acute distress HEENT: normocephalic/atraumatic,, moist oral mucosa Neck: supple, symmetrical, no thyromegaly ,palpable 1-2 cm left sided nodule , no dorsocervical or supraclavicular fat pads Cardiac: normal heart sounds Pulm: normal breath sounds B/L, no added breath sounds Abd: not distended, no tenderness Extremities: no edema, no signs of myxedema Laboratory Tests 09/01/21 10/06/21 08/22/22 07:24 08:07 07:00 Creatinine Estimated GFR Calcium 9.5 D 10.2 D Phosphorus 2.8 3.1 Albumin 4.3 4.4 25-OH Vitamin D Total 60.1 38.5 TSH Free T4 PTH Intact 91 H 75 H 81 H Calcium (PTH Intact) 10.0 10.1 10.0 01/20/24 06/05/24 06/05/24 08:09 07:46 07:46 Creatinine Estimated GFR 55 Calcium 9.8 Phosphorus Albumin 4.0 4.0 25-OH Vitamin D Total 31.6 31.6 TSH Free T4 PTH Intact Calcium (PTH Intact) 06/05/24 06/05/24 07:46 Unknown Creatinine 1.14 Estimated GFR 47 Calcium 9.8 Phosphorus 2.2 L Albumin 4.1 25-OH Vitamin D Total TSH 1.25 Free T4 0.98 PTH Intact 150.2 H 155.4 H Calcium (PTH Intact) US THYROID 08/03/24 I reviewed the images myself which show the left lower lobe dominant nodule CLINICAL INFORMATION: Nontoxic multinodular goiter. COMPARISON: Thyroid ultrasound 01/13/2024 and 10/21/2022. Ultrasound-guided thyroid biopsy 08/03/2021. CT soft tissue neck 02/13/2021. TECHNIQUE: Linear transducer grayscale and color Doppler examination with attention to the region of the thyroid. FINDINGS: SIZE: Measurements of the thyroid lobes and nodules are given in sagittal, anteroposterior and transverse dimensions respectively. Right Thyroid Lobe: 3.8 x 1.6 x 2.0 cm, volume 6.5 mL. Previously 3.4 x 1.4 x 1.7 cm, volume 4.1 mL. Parenchyma: The gland echotexture is homogeneous. Thyroid vascularity is normal. Left Thyroid Lobe: 4.8 x 1.9 x 2.1 cm, volume 9.8 mL. Previously 4.6 x 2.2 x 2.2 cm, volume 12.1 mL. Parenchyma: The gland echotexture is homogeneous. Thyroid vascularity is normal. Isthmus: 0.7 cm in maximum AP dimension. Previously 0.4 cm. Estimated total number of nodules greater than or equal to 1 cm: 1. Purchasing Clerk nodules are described as follows: 1. Location: Right mid pole. Size: 0.3 x 0.4 x 0.3 cm, volume 0.03 mL. Nodule characteristics: Composition: Solid (2). Echogenicity: Hyperechoic (1). Shape: Not taller than wide (0). Margins: Smooth (0). Echogenic Foci: None (0). ACR TI-RADS total points: 3 ACR TI-RADS category: 3 2. Location: Isthmus. Size: 0.4 x 0.5 x 0.5 cm, volume 0.06 mL. Nodule characteristics: Composition: Solid (2). Echogenicity: Hypoechoic (2). Shape: Not taller than wide (0). Margins: Smooth (0). Echogenic Foci: None (0). ACR TI-RADS total points: 4 ACR TI-RADS category: 4 3. Location: Left lower pole. Size: 2.5 x 1.8 x 1.7 cm, volume 4.1 mL. Previously: 2.0 x 1.6 x 1.9 cm, volume 3.2 mL. Nodule characteristics: Composition: Solid (2). Echogenicity: Hyperechoic (1). Shape: Not taller than wide (0). Margins: Ill-defined (0). Echogenic Foci: None (0). ACR TI-RADS total points: 3 Previous: 6 ACR TI-RADS category: 3 Previous: 4 Significant change in size (>/= 20% in 2 dimensions and minimal increase of 2 mm or 50% or greater increase in volume): Yes Change in features: Yes Change in ACR TI-RADS risk category: Yes 4. Location: Left mid pole. Size: 0.5 x 0.4 x 0.5 cm, volume 0.05 mL. Nodule characteristics: Composition: Cystic(0). ACR TI-RADS total points: 0 ACR TI-RADS category: 1 NODES: No lymphadenopathy is seen in the tissue surrounding the thyroid gland. US/US thyroid IMPRESSION: 1. Bilateral thyroid nodules are seen, as detailed. The increased 2.5 cm TR 3 nodule at the lower pole of the left lobe meets ACR biopsy criteria and is amenable to ultrasound-guided biopsy, if clinically indicated and not already performed. 2. There is an asymmetric goiter, left lobe greater than right. US THYROID 01/10 I reviewed the images myself which show the left lower lobe dominant nodule CLINICAL INFORMATION: Nontoxic multinodular goiter. COMPARISON: Thyroid ultrasound 10/21/2022 and 03/14/2021. Ultrasound-guided thyroid biopsy 08/03/2021. CT soft tissue neck 02/13/2021. TECHNIQUE: Linear transducer dodd-scale and color Doppler examination with attention to the region of the thyroid. FINDINGS: SIZE: Measurements of the thyroid lobes and nodules are given in sagittal, anteroposterior and transverse dimensions respectively. Right Thyroid Lobe: 3.4 x 1.4 x 1.7 cm, volume 4.1 mL. Previously 3.5 x 1.5 x 1.5 cm, volume 4.0 mL. Parenchyma: The gland echotexture is heterogeneous. Thyroid vascularity is normal. Left Thyroid Lobe: 4.6 x 2.2 x 2.2 cm, volume 12.1 mL. Previously 5.0 x 2.1 x 1.5 cm, volume 8.3 mL. Parenchyma: The gland echotexture is heterogeneous. Thyroid vascularity is normal. Isthmus: 0.4 cm in maximum AP dimension. Previously 0.4 cm. Estimated total number of nodules greater than or equal to 1 cm: 1. Purchasing Clerk nodules are described as follows: 1. Location: Right upper/mid pole. Size: 0.6 x 0.5 x 0.3 cm, volume 0.05 mL. Previously: 0.9 x 0.8 x 0.6 cm, volume 0.2 mL. Nodule characteristics: Composition: Mixed cystic and solid (1). Echogenicity: Hypoechoic (2). Shape: Not taller than wide (0). Margins: Ill-defined (0). Echogenic Foci: Comet-tail artifacts (0). ACR TI-RADS total points: 3 Previous: 4 ACR TI-RADS category: 3 Previous: 4 Significant change in size (>/= 20% in 2 dimensions and minimal increase of 2 mm or 50% or greater increase in volume): Change in features: Change in ACR TI-RADS risk category: 2. Location: Right upper pole. Size: 0.3 x 0.4 x 0.2 cm, volume 0.02 mL. Previously: 0.4 x 0.3 x 0.2 cm, volume 0.01 mL. Nodule characteristics: Composition: Solid/almost completely solid (2). Echogenicity: Hypoechoic (2). Shape: Not taller than wide (0). Margins: Ill-defined (0). Echogenic Foci: None (0). ACR TI-RADS total points: 4 Previous: 4 ACR TI-RADS category: 4 Previous: 4 Significant change in size (>/= 20% in 2 dimensions and minimal increase of 2 mm or 50% or greater increase in volume): Change in features: Change in ACR TI-RADS risk category: 3. Location: Left lower pole. Size: 2.0 x 1.6 x 1.9 cm, volume 3.2 mL. Previously: 1.8 x 1.6 x 1.4 cm, volume 2.2 mL. Nodule characteristics: Composition: Solid/almost completely solid (2). Echogenicity: Isoechoic (1). Shape: Taller than wide (3). Margins: Ill-defined (0). Echogenic Foci: None (0). ACR TI-RADS total points: 6 Previous: 3 ACR TI-RADS category: 4 Previous: 3 Significant change in size (>/= 20% in 2 dimensions and minimal increase of 2 mm or 50% or greater increase in volume): Yes Change in features: No Change in ACR TI-RADS risk category: Yes NODES: No lymphadenopathy is seen in the tissue surrounding the thyroid gland. US/US thyroid IMPRESSION: 2.0 cm left lower pole TR4 thyroid nodule meets criteria for biopsy. Fine-needle aspiration recommended. This study was presented today, 01/14/2024 at 9:00 AM, for interpretation. PSA staff will provide results to referring provider at this time. BONE DENSITOMETRY 12/2023 CLINICAL INDICATION: Nontoxic multinodular goiter. COMPARISON: Baseline BD dated 11/21/2021. TECHNIQUE: Using a Thinglink DXA System (software version: 13.1) manufactured by [employer], dual-energy x-ray absorptiometry was performed of the lumbar spine, left hip, and left forearm radius 33%. The images are of good technical quality. Summary results are attached. FINDINGS: LEFT FEMUR, NECK: Current: BMD 0.973 g/cm2, Z-score 0.4, T-score -0.5, normal. Baseline: BMD 0.932 g/cm2. LEFT FEMUR, TOTAL: Current: BMD 0.994 g/cm2, Z-score 0.4, T-score -0.1, normal, 0.8% decrease from baseline (<5% change is not significant). Baseline: BMD 1.002 g/cm2. LEFT FOREARM RADIUS 33%: BMD 0.981 g/cm2, Z-score 2.9, T-score 1.2, normal, 0.7% decrease from baseline (<5% change is not significant). Baseline: BMD 0.988 g/cm2. AP SPINE L1-L2 (excluding L3 and L4): The data of L1-L4 has been changed to exclude the L3 and L4 vertebral bodies, because degenerative sclerosis at these levels may cause overestimation of lumbar spine density. Current: BMD 1.210 g/cm2, Z-score 0.9, T-score 0.4, normal, 3.6% decrease from baseline (<5% change is not significant). Baseline: BMD 1.255 g/cm2. IDENTIFIED RISK FACTORS: Menopause, height loss, history of fracture (adult), secondary osteoporosis (hyperthyroidism). HISTORY OF FRACTURE: Other. [facility] Medical History Transaminitis Hyperparathyroidism Morbid obesity Multinodular thyroid Breast mass Shortness of breath Laryngeal disorder Thyroid nodule Submandibular swelling Hypovitaminosis D Neck mass Neck pain Lymphadenopathy Essential hypertension Surgical History H/O colonoscopy History of laparoscopy History of D&C History of removal of cyst History of appendectomy History of tonsillectomy Family History Father Hypertension Prostate cancer Mother Hypertension Diabetes Dementia Social History Household Members Other:: lives alone Housing: Apartment Alcohol intake: current Alcohol intake frequency: holidays/special occasions only Alcohol type: wine and hard liquor Patient Tobacco Use Status: Never used Tobacco e-Cigarette/Vaping Use: Never Used Second Hand Smoke Exposure: Yes service: No Current occupational status: retired Current occupation: Works -nights- [employer] Current occupational exposures/hazards: No Cognitive needs: No Hearing needs: No Vision needs: Yes (Glasses) Female Reproductive History Menstrual Age of Menarche: 18 Assessment & Plan Assessment & Plan (1) Multinodular thyroid: Code(s): E04.2 - Nontoxic multinodular goiter Category: Medical Plan: Patient with no family history of thyroid cancer, with no history of head or neck radiation coming in today for follow up of multinodular goiter. Diagnosed with thyroid nodules in 2020. Underwent FNA in July 2021 of the left dominant lower lobe nodule measuring 1.8 cm at the time, which was benign. She also had a lymph node on the same side biopsied that was negative for malignant cells, however showed some inflammatory cells. She does not have any compressive symptoms. TSH 06/09 was unremarkable. t ultrasound from December 2023 showed growth in the side of the nodule that is significant which measured 2 cm in the largest dimension, solid isoechoic TR 4 nodule. We repeated a thyroid ultrasound done 08/03/2024 which again showed further significant increase in the size of the nodule. This now measures 2.5 cm in the maximum dimension. I reviewed the images myself and given significant change in size this met criteria for FNA.underwent FNA of this nodule on 09/08/24 which came back as AUS, [place] category 3 with Hurthle cell change. Afirma results came back as no result due to sample processing error. 03/02/25: s/p FNA of the left inerior 2.5 cm nodule which came back benign this time but because results from 09/08/24 was AUS I have sent this for Afirma testing , results pending Will plan to repeat thyroid US in 1 year from now because of recent increase in size of the nodule She also has not had TFTs since May 2024. We should repeat once a year. Plan: -repeat ultrasound thyroid ordered for February 2026 -follow up Afirma results -ordered TSH, free T4 (2) Essential hypertension: Code(s): I10 - Essential (primary) hypertension Category: Medical Plan: Blood pressure previously noted to be elevated. She follows with Nephrology and most recently increased her dose of nifedipine from 60 daily to 60 mg b.i.d.. Blood pressure better controlled today. She is also on losartan 50 mg daily. She is noted to have obstructive sleep apnea though she does not use CPAP. She was also diagnosed with hypertension in her 30s. Given young age of diagnosis, requiring titration up of her blood pressure medications and given there is an increased prevalence of primary hyperaldosteronism patients with obstructive sleep apnea, I will screen her for primary hyperaldosteronism. Have to keep in mind that she is on losartan which can cause falsely elevated renin levels. Have asked her to monitor her blood pressure at home. She has not done labs yet. Plan: -check BMP, renin, aldosterone (ordered again today) (3) Hyperparathyroidism: Code(s): E21.3 - Hyperparathyroidism, unspecified Category: Medical Plan: Patient with elevated PTH levels in the range of 90-100 since at least 2020. Has had normal calcium levels. Normal vitamin-D levels. Phosphorus most recently noted to be slightly low. GFR noted to be in the 60s. Differentials include possibly primary hyperparathyroidism vs normoclacemic hyperparathyrodiism or secondary hyperparathyroidism in the setting of kidney disease.. However she used to be on hydrochlorothiazide, which could result in some of the hypercalcemia or unmasking of hyperparathyroidism. At this time she has been off hydrochlorothiazide for the past 6 months hence we will repeat all her labs. I have also ordered a 24 hour urine calcium and creatinine to be done. She now has better nutritional intake of calcium as well. Patient is above the age of 50, has no history of osteoporosis with normal forearm on bone density done in 2021, she does not have any significant symptoms of hypercalcemia, no history of kidney stones. Her GFR is however less than 60. We will wait for the results of the 24 hour urine calcium to see if she has any indication for surgery. On previous thyroid ultrasound she was also noted to have a left lymph node that was biopsied in July 2021 and showed inflammatory cells with some suspicion of parathyroid adenoma. This could possibly be the culprit lesion. She was supposed to do 24 hour urine and blood work, however she has not done these. Plan: -ordered again 24 hour urine calcium, creatinine blood work -PTH and calcium also ordered to be done at outside lab ([facility]) due to variation in our PTH assay recently noted Plan See above Orders: Orders 2 Phosphorus Today E04.2 - Nontoxic multinodular goiter, E21.3 - Hyperparathyroidism, unspecified, I10 - Essential (primary) hypertension Parathyroid Hormone Intact Today E04.2 - Nontoxic multinodular goiter, E21.3 - Hyperparathyroidism, unspecified, I10 - Essential (primary) hypertension Aldosterone Today E04.2 - Nontoxic multinodular goiter, E21.3 - Hyperparathyroidism, unspecified, I10 - Essential (primary) hypertension Renin Today E04.2 - Nontoxic multinodular goiter, E21.3 - Hyperparathyroidism, unspecified, I10 - Essential (primary) hypertension Free T4 (Free Thyroxine) Today E04.2 - Nontoxic multinodular goiter, E21.3 - Hyperparathyroidism, unspecified, I10 - Essential (primary) hypertension Calcium 03/17/25 E21.3 - Hyperparathyroidism, unspecified Albumin Level 03/17/25 E21.3 - Hyperparathyroidism, unspecified Calcium, Ionized 03/17/25 E21.3 - Hyperparathyroidism, unspecified Creatinine 03/17/25 E21.3 - Hyperparathyroidism, unspecified US thyroid 1 Year E04.2 - Nontoxic multinodular goiter Albumin Level Today E04.2 - Nontoxic multinodular goiter, E21.3 - Hyperparathyroidism, unspecified, I10 - Essential (primary) hypertension Calcium Today E04.2 - Nontoxic multinodular goiter, E21.3 - Hyperparathyroidism, unspecified, I10 - Essential (primary) hypertension Calcium, Ionized Today E04.2 - Nontoxic multinodular goiter, E21.3 - Hyperparathyroidism, unspecified, I10 - Essential (primary) hypertension Calcium, 24 Hr Ur Today E04.2 - Nontoxic multinodular goiter, E21.3 - Hyperparathyroidism, unspecified, I10 - Essential (primary) hypertension Creatinine, 24 Hr Group Today E04.2 - Nontoxic multinodular goiter, E21.3 - Hyperparathyroidism, unspecified, I10 - Essential (primary) hypertension Sodium, 24Hr Urine Group Today E04.2 - Nontoxic multinodular goiter, E21.3 - Hyperparathyroidism, unspecified, I10 - Essential (primary) hypertension Vitamin D 25-OH Total Today E04.2 - Nontoxic multinodular goiter, E21.3 - Hyperparathyroidism, unspecified, I10 - Essential (primary) hypertension Magnesium Today E04.2 - Nontoxic multinodular goiter, E21.3 - Hyperparathyroidism, unspecified, I10 - Essential (primary) hypertension Basic Metabolic Panel Today E04.2 - Nontoxic multinodular goiter, E21.3 - Hyperparathyroidism, unspecified, I10 - Essential (primary) hypertension Thyroid Stimulating Hormone Today E04.2 - Nontoxic multinodular goiter, E21.3 - Hyperparathyroidism, unspecified, I10 - Essential (primary) hypertension Parathyroid Hormone Intact 03/17/25 E21.3 - Hyperparathyroidism, unspecified Patient Instructions: Do 24 hr urine collection and the same morning as you hand in the urine do blood work at [facility] [place] 24 hr urine collection instructions You have been asked to collect your urine for 24 hours to assess for calcium excretion. You must choose a 24 hour period of time when you will be home. The morning of the first day, DISCARD the FIRST morning void and then note the time. You will collect every single void from then on for 24 hours. For example, if you wake up at 6am and urinate, flush down that void. You will then collect every drop of urine all day and all night through 6am the following day. You will urinate one last time at 6am for the collection. The jug of urine must be kept in the refrigerator until you bring it to the lab. Do also a set of blood work at [facility] at [address] [place] [address] Please have them fax results to my office Follow up in 6 weeks Next thyroid ultrasound would be due in February 2026 Coding Level of Care Code Est Pt Level 4 (97385) Diagnoses Multinodular thyroid E04.2 Essential hypertension I10 Hyperparathyroidism E21.3
--- OUTSIDE RECORDS SUMMARY | 2025-03-16 13:49 | XMS_ITS | Clinical Summary ---
Author Organization [facility] Address [address] [address] Phone Care Team Providers Care Zig Zag Stitcher Name Role Phone Marcel Hong MD Primary Care Provider [phone] Allergies Active Allergy Reactions Criticality Noted Date [...] Office Visit [facility] [address] [id number] Zofia Fraser ARNP [address] [id number] Health Maintenance Due Date Last Done Comments Breast Cancer Screening 1955 Pneumococcal Vaccine: 50+ Ye ars (1 of 2 - PCV) 1974 Colorectal Cancer Screening: Annual FOBT 2004 Colorectal Cancer Screening: Colonoscopy 2004 Colorectal Cancer Screening: Sigmoidoscopy 2004 Influenza Vaccine (Season Ended) 2025 Hepatitis B Vaccine Aged Out No longe r eligible based on patient's age to complete this topic Insurance [facility] Care Teams Zig Zag Stitcher Relationship Specialty Start Date End Date Marcel Hong MD [address] [id number] PCP - General Nephrology 04/28/24
== END 2025-03-16 13:24 | disposition home or self-care (01) ==
LOC: HO.ENCR 12:32
PROVIDERS: PCP Internal Medicine; Visit Provider Student in an Organized Health Care Education/Training Program
DX: E04.2 Nontoxic multinodular goiter (principal); I10 Essential (primary) hypertension; E21.3 Hyperparathyroidism, unspecified
CPT/HCPCS: 99214

== ENCOUNTER → 2025-03-16 12:31 | Outpatient (BNVA) | payer MEDICARE, SELFPAY | PROVIDERS: PCP Internal Medicine; Visit Provider Student in an Organized Health Care Education/Training Program | DX: E21.3 Hyperparathyroidism, unspecified (principal); E04.2 Nontoxic multinodular goiter; I10 Essential (primary) hypertension | CPT/HCPCS: 99212 ==

== ENCOUNTER 2025-04-04 07:12 | Outpatient (REF) | payer MEDICARE, SELFPAY ==
--- NOTE | ~2025-04-04 | XR_ITS ---
EXAMINATION: XR HAND, LEFT CLINICAL INFORMATION: M79.642 - Pain in left hand COMPARISON: None available. TECHNIQUE: PA, lateral, and oblique views of the left hand. FINDINGS: The bones and soft tissues are normal. No fracture. Alignment is anatomic. Mild narrowing radiocarpal joint. Joint spaces are otherwise maintained. No erosions or soft tissue calcifications. XR/XR hand LT 2V IMPRESSION: Essentially normal left hand. Electronically signed by: Enrique Schmitt MD 04/04/2025 08:16 AM EDT
--- NOTE | ~2025-04-04 | CT_ITS ---
CLINICAL HISTORY: R51.9 - Headache, unspecified CT head without IV contrast Comparison: None Findings: The ventricles are normal in configuration. Basilar cisterns intact. No intracranial hemorrhage, mass-effect or midline shift. No extra-axial fluid collections. The parenchyma is unremarkable in attenuation. Devi-white matter junction preserved. No evidence of acute large vessel or territorial ischemia. Brainstem and cerebellum unremarkable. The calvarium is intact. The imaged portion of the paranasal sinuses are clear. No mastoid effusions. The orbital contents are unremarkable. Impression: 1. No CT evidence of acute intracranial pathology. This document has been electronically signed by: Aric Kim MD on 04/04/2025 13:00:48
--- NOTE | ~2025-04-04 | XR_ITS ---
EXAMINATION: XR SHOULDER, LEFT CLINICAL INFORMATION: M25.512 - Pain in left shoulder COMPARISON: None available. TECHNIQUE: AP external rotation, Grashey, scapular Y, and axillary views of the left shoulder. FINDINGS: Normal bone mineralization. No fracture, dislocation, or suspicious bone lesion. Normal alignment. The glenohumeral joint is normal. The AC joint demonstrates mild superior and undersurface spurring. There is a type II acromion. No undersurface spurring. The subacromial space is preserved. Remainder of the soft tissue and bony structures appear normal. XR/XR shoulder LT min 2V IMPRESSION: 1. No acute bony abnormalities. 2. Mild to moderate degenerative arthritis AC joint. Electronically signed by: Enrique Schmitt MD 04/04/2025 08:14 AM EDT
== END 2025-04-04 07:13 | disposition home or self-care (01) ==
LOC: HO.CT 07:12
PROVIDERS: PCP Internal Medicine; Visit Provider Internal Medicine
DX: M25.512 Pain in left shoulder (principal); M79.642 Pain in left hand; G44.319 Acute post-traumatic headache, not intractable
CPT/HCPCS: 70450; 73030; 73120

== ENCOUNTER → 2025-04-04 07:17 | Outpatient (BNV) | payer MEDICARE, SELFPAY | PROVIDERS: PCP Internal Medicine; Visit Provider Radiology Diagnostic Radiology | DX: R51.9 Headache, unspecified (principal); M19.012 Primary osteoarthritis, left shoulder; M79.642 Pain in left hand | CPT/HCPCS: 70450; 73030; 73120 ==

== ENCOUNTER 2025-06-06 08:14 | Outpatient (REF) | payer MEDICARE, SELFPAY ==
--- OUTSIDE RECORDS SUMMARY | 2025-06-06 08:19 | XMS_ITS | Clinical Summary ---
Author Organization [facility] Address [address] [address] Phone Care Team Providers Care Baker Test Name Role Phone Marcel Hong MD Primary Care Provider [phone] Allergies Active Allergy Reactions Criticality Noted Date Comments Clonidine Other (see comments) 07/09/2024 Latex 04/23/2006 Lisinopril Other (see comments) 07/09/2024 Medications losartan (COZAAR) 50 MG tablet Take 1 tablet (50 mg total) by mouth 1 (one) time each day 30 tablet 2 4 Active NIFEdipine XL (Procardia XL) 60 MG 24 hr tabletIndicatio ns:Hypertensive disorder Take 1 tablet (60 mg total) by mouth in the morning and 1 tablet (60 mg total) in the evening. Do not crush, chew, or split. 180 tablet 5 08/24/20 25 Active NIFEdipine XL (Procardia XL) 60 MG 24 hr tablet Take 1 tablet (60 mg total) by mouth in the morning and 1 tablet (60 mg total) in the evening. Do not crush, chew, or split.. 180 tablet 5 05/26/20 25 Discontinu ed(Reorder (does not appear on AVS)) Active Problems Problem Noted Date Diagnosed Date Hypertensive disorder 07/09/2024 Stage 3a chronic kidney disease 07/09/2024 Benign essential hypertension 07/09/2024 Encounters Date Type Department Care Team Description 05/31/2025 Office Communication [facility] [address] [address] Zofia Fraser ARNP 05/26/2025 Refill [facility] [address] [address] Ynes Bairesgeovanynery Hypertensive disorder (Primary Dx) 05/17/2025 Orders Only [facility] [address] [address] Magi Jha 04/22/2025 Orders Only [facility] [address] [address] Gautam Hernandez MD Hypertensive disorder; Stage 3a chronic kidney disease (HCC) from Last 3 Months Family History Medical [...] Care Team (Late st Contact Info) Description 06/20/2025 9:45 AM EDT Office Visit [facility] [address] [place] [phone] Zofia Fraser ARNP [address] [address] Health Maintenance Due Date Last Done Comments Breast Cancer Screening 1955 Pneumococcal Vaccine: 50+ Ye ars (1 of 2 - PCV) 1974 Colorectal Cancer Screening: Annual FOBT 2004 Colorectal Cancer Screening: Colonoscopy 2004 Colorectal Cancer Screening: Sigmoidoscopy 2004 Influenza Vaccine (#1) 2025 Hepatitis B Vaccine Aged Out No longe r eligible based on patient's age to complete this topic [place] [address] [facility] Care Teams Baker Test Relationship Specialty Start Date End Date Marcel Hong MD [address] [phone] PCP - General Nephrology 04/28/24
[2025-06-06 09:48] LABS: Albumin Level 4.4 g/dL (3.5-5.0); Anion Gap 12 (12-20); Blood Urea Nitrogen 13 mg/dL (9-16); Calcium 9.5 mg/dL (8.4-10.2); Carbon Dioxide 27 mmol/L (22-29); Chloride 107 mmol/L (96-108); Estimated Glomerular Filt Rate > 60; Magnesium 2.0 mg/dL (1.6-2.6); Potassium 3.9 mmol/L (3.3-5.1); Sodium 142 mmol/L (135-145)
[2025-06-06 10:09] LABS: Free T4 (Free Thyroxine) 1.05 ng/dL (0.71-1.85); Thyroid Stimulating Hormone 1.80 uIU/mL (0.32-4.0)
[2025-06-06 10:22] LABS: Total Volume 24 Hour Urine 1250 mL
[2025-06-06 10:47] LABS: Creatinine, mg/dL 106.45; Sodium, 24 Hr Urine 69.0 mmol/L
[2025-06-06 11:19] LABS: Parathyroid Hormone Intact 122.1 pg/mL (8.7-77.1)
[2025-06-07 13:09] LABS: Calcium, Ionized 5.4 mg/dL (4.7-5.5)
[2025-06-08 21:28] LABS: Calcium/Creatinine Ratio 39 mg/g creat (30-275); Creatinine 24Hr Urine 1.35 g/24 h (0.50-2.15)
== END 2025-06-06 08:15 | disposition home or self-care (01) ==
LOC: HO.LAB 08:14
PROVIDERS: PCP Internal Medicine; Visit Provider Student in an Organized Health Care Education/Training Program
DX: E21.3 Hyperparathyroidism, unspecified (principal); E04.2 Nontoxic multinodular goiter; I10 Essential (primary) hypertension
CPT/HCPCS: 36415; 80048; 82040; 82088; 82306; 82330; 82340; 83735; 83970; 84100; 84244; 84300; 84439; 84443

== ENCOUNTER 2025-07-19 07:47 | Outpatient (AMB) | payer MEDICARE, SELFPAY ==
--- OUTSIDE RECORDS SUMMARY | 2025-07-19 07:51 | XMS_ITS | Clinical Summary ---
Author Organization [facility] Address [address] [address] Phone Care Team Providers Care Ton Cylinder Inspector Name Role Phone Marcel Hong MD Primary Care Provider [phone] Allergies Active Allergy Reactions Criticality Noted Date [...] not crush, chew, or split. 180 tablet 05/26/2025 Active Active Problems Problem Noted Date Diagnosed Date Hypertensive disorder 07/09/2024 Stage 3a chronic kidney disease 07/09/2024 Benign essential hypertension 07/09/2024 Encounters Date Type Department Care Team Description 05/31/2025 Office Communication [facility] [address] [phone] Zofia Fraser ARNP 05/26/2025 Refill [facility] [address] [phone] Rene Baires Hypertensive disorder (Primary Dx) 05/17/2025 Orders Only [facility] [address] [facility] [address] [place] [address] Magi Jha 04/22/2025 Orders Only [facility] [address] [facility] [address] [place] [address] Gautam Hernandez MD Hypertensive disorder; Stage [...] 04/05/2020 12:01 PM EDT Plan of Treatment Health Maintenance Due Date Last Done Comments Breast Cancer Screening 1955 Pneumococcal Vaccine: 50+ Ye ars (1 of 2 - PCV) 1974 Colorectal Cancer Screening: Annual FOBT 2004 Colorectal Cancer Screening: Colonoscopy 2004 Colorectal Cancer Screening: Sigmoidoscopy 2004 Influenza Vaccine (#1) 2025 Hepatitis B Vaccine Aged Out No longe r eligible based on patient's age to complete this topic Insurance [facility] Care Teams Ton Cylinder Inspector Relationship Specialty [place] [address] [place] [phone] PCP - General Nephrology 04/28/24
[2025-07-19 08:01] VITALS: BP 118/72; PULSE 77; O2SAT 97; BMI 39.6
--- NOTE | 2025-07-19 08:01 | A.OFFPC_ITS ---
Vital Signs 07/19/25 08:01 Height 5 ft 5 in Weight 238 lb BMI 39.6 BP 118/72 Blood Pressure Location Lt brachial Position Sitting Pulse 77 Pulse Source Pulse Oximeter Pulse Oximetry (%) 97 Oxygen Delivery Method Room Air Intake Visit Reasons: bp Parachute Repairer Required: No Accompanied by: Self / Same As Patient Allergies amoxicillin Allergy (Intermediate, Verified 07/19/25 08:11) diarrhea dicyclomine Allergy (Intermediate, Verified 07/19/25 08:11) BP spike Medication List - Last Reconciled 07/19/25 by Leticia Grayson MD losartan 50 mg PO DAILY 90 days nifedipine ER 60 mg PO BID Tobacco use date assessed: 02/23/25 Fall risk assessment: No Falls in past year Last assessed Fall Risk: 07/19/25 Dental Screening Dental Screen Date: 02/23/25 HPI HPI Comments History of Present Illness Details The patient is a 70-year-old female presenting with chronic diarrhea and preventative care needs. The patient reports experiencing chronic diarrhea for over six months, with episodes occurring up to seven times a day. The diarrhea is characterized by very soft stools, sometimes liquid, and is accompanied by a burning sensation in the rectum, exacerbating her hemorrhoids. She notes that her bowel movements are smaller than usual, resembling sausage links, and she experiences nausea and fullness after eating small amounts of food. The patient has a history of tubular adenoma, with a previous colonoscopy revealing polyps that were removed. She was due for a follow-up colonoscopy in 2019, which has not been completed because she declines. The patient has hyperparathyroidism, with elevated parathyroid hormone levels but normal calcium levels. She also has a history of kidney disease with normal glomerular filtration rate (GFR), which may contribute to her hyperparathyroidism. The patient has a history of hypertension, managed with losartan and nifedipine, and arthritis affecting her shoulder. She reports difficulty in weight management and experiences bone pain, although her bone density is normal. [facility] Medical History (Updated 07/19/25 @ 08:41 by Leticia Grayson MD) Transaminitis Hyperparathyroidism Morbid obesity Multinodular thyroid Breast mass Shortness of breath Laryngeal disorder Thyroid nodule Submandibular swelling Hypovitaminosis D Neck mass Neck pain Lymphadenopathy Essential hypertension Surgical History H/O colonoscopy History of laparoscopy History of D&C History of removal of cyst History of appendectomy History of tonsillectomy Family History Father Hypertension Prostate cancer Mother Hypertension Diabetes Dementia Social History Household Members Other:: lives alone Housing: Apartment Alcohol intake: current Alcohol intake frequency: holidays/special occasions only Alcohol type: wine and hard liquor Patient Tobacco Use Status: Never used Tobacco Tobacco use type: Cigarette e-Cigarette/Vaping Use: Never Used Second Hand Smoke Exposure: Yes service: No Current occupational status: retired Current occupation: [employer] Current occupational exposures/hazards: No Cognitive needs: No Hearing needs: No Vision needs: Yes (Glasses) Female Reproductive History Menstrual Age of Menarche: 18 Questionnaire PHQ-9 Over the last 2 weeks, how often have you been bothered by any of the following problems? 1. Little interest or pleasure in doing things: not at all 2. Feeling down, depressed, or hopeless: not at all 3. Trouble falling or staying asleep, or sleeping too much: not at all 4. Feeling tired or having little energy: several days 5. Poor appetite or overeating: not at all 6. Feeling bad about yourself - or that you are a failure or have let yourself or your family down: not at all 7. Trouble concentrating on things, such as reading the newspaper or watching television: not at all 8. Moving or speaking so slowly that other people could have noticed. Or the opposite - being so fidgety or restless that you have been moving around a lot more than usual: not at all 9. Thoughts that you would be better off or of hurting yourself in some way: not at all Total score: 1 Depression Screening Interpretation: Positive Depression Screening Done: Yes 72374 - PHQ-9 Billing: Yes Source: Developed by Drs. Jose Kenny, Janee Self, Husam Asher and colleagues, with an educational jennifer from [employer]. Thrive Questionnaire Date Thrive assessed: 07/19/25 I am a: Patient What is your living situation today?: I have a steady place to live Within the past 12 months, did the food you bought not last and you didn't have the money to get more?: Never true Within the past 12 months, did you worry whether your food would run out before you got money to buy more?: I choose not to answer this question Do you have trouble paying for medicines?: I choose not to answer this question Do you have trouble getting transportation to medical appointments?: I choose not to answer this question Do you have trouble paying your heating and electricity bill?: I choose not to answer this question Do you have trouble taking care of your child, family member or friend?: I choose not to answer this question Do you have trouble with day-to-day activities such as bathing, preparing meals, shopping, managing finances, etc.?: I choose not to answer this question Are you currently unemployed and looking for a job?: I choose not to answer this question Are you interested in more education?: I choose not to answer this question Please select the resources that you would like help with: None Currently or been in a relationship where the following occur: I choose not to answer THRIVE Score: 0 AUDIT C Alcohol Use Questionnaire (AUDIT-C) 1. How often do you have a drink containing alcohol?: 2-4 times a month 2. How many drinks containing alcohol do you have on a typical day when you are drinking?: 1 or 2 3. How often do you have six or more drinks on one occasion?: Never Total Score: 2 Score Reviewed/Action Taken: No ARIEL-7 AMB Questionnaire ARIEL-7 Date ARIEL - 7 assessed: 02/23/25 Source: Developed by Drs. Jose Kenny, Janee Self, Husam Asher and colleagues, with an educational jennifer from [employer]. Review of Systems Const All systems reviewed & are unremarkable except as noted in HPI and below Card Denies chest pain at rest, Denies chest pain with activity, Denies edema, Denies irregular heart rhythm, Denies claudication, Denies dyspnea, Denies dyspnea on exertion, Denies orthopnea, Denies paroxysmal nocturnal dyspnea and Denies slow heart rate Resp Denies cough, Denies dyspnea and Denies dyspnea on exertion GI Denies abdominal pain, Denies change in bowel habits, Denies excessive flatus, Denies nausea and Denies vomiting Physical exam (Primary Care) Vital Signs: Last Vital Signs Pulse 77 07/19/25 08:01 BP 118/72 09/02/25 08:01 Pulse Ox 97 07/19/25 08:01 Oxygen Delivery Method Room Air 07/19/25 08:01 BMI result Body Mass Index 39.6 BMI Assessment/Plan discussion: High BMI High, discussed plan: lifestyle, weight reduction, dietary and physical activity Tobacco/Smoking Status: Tobacco use Status Tobacco use date assessed 02/23/25 07/19/25 08:04 Patient Tobacco Use Status Never used Tobacco 07/19/25 08:04 Tobacco use type Cigarette 07/19/25 08:04 e-Cigarette/Vaping Use Never Used 07/19/25 08:04 PHQ-9: PHQ-9 Score PHQ-9: Total score 1 07/19/25 08:04 Depression Screening Interpretation: Positive Thrive Assessment: Date of Thrive Assessment Date Thrive assessed 07/19/25 07/19/25 08:04 Currently or been in a relationship where the following occur: I choose not to answer Resp Effort & Inspection: normal respiratory effort Auscultation: clear to auscultation bilaterally Cardio Jugular venous distension: no JVD Rate: regular rate Rhythm: regular rhythm Heart sounds: S1 normal heart sound present and S2 normal heart sound present Coding Level of Care Code Est Pt Level 4 (33362) Complex EM visit Add On G2211 Diagnoses Essential hypertension I10 Hyperparathyroidism E21.3 Chronic diarrhea K52.9 Left shoulder pain M25.512 Multinodular thyroid E04.2 Additional Codes PHQ-9 - 20961 - PHQ-9 Billing: Yes ([id number]) Time Spent (min) 24 Assessment & Plan Assessment & Plan (1) Essential hypertension: Code(s): I10 - Essential (primary) hypertension Category: Medical (2) Hyperparathyroidism: Code(s): E21.3 - Hyperparathyroidism, unspecified Category: Medical (3) Chronic diarrhea: Code(s): K52.9 - Noninfective gastroenteritis and colitis, unspecified Category: Medical (4) Left shoulder pain: Code(s): M25.512 - Pain in left shoulder Category: Medical (5) Multinodular thyroid: Code(s): E04.2 - Nontoxic multinodular goiter Category: Medical Plan Plan Patient was informed and verbally consented to the use of an ambient scribe for clinic note documentation during this visit. 1. Noninfective gastroenteritis and colitis, unspecified K52.9 The patient will be referred to gastroenterology for further evaluation of chronic diarrhea, including potential colonoscopy due to symptoms and history of tubular adenoma. Stool samples will be collected to assess for fat malabsorption and celiac disease. 2. Hyperparathyroidism, unspecified E21.3 HCC 23 The patient's hyperparathyroidism is being monitored, with normal calcium levels and ongoing evaluation by endocrinology. 3. Essential (primary) hypertension I10 Hypertension is managed with losartan and nifedipine, and the patient reports stable blood pressure control. 4. 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 I discussed with the patient the importance of addressing her chronic diarrhea and the potential need for a colonoscopy given her symptoms and history of tubular adenoma. We also reviewed the necessity of stool sample collection to ev aluate for malabsorption and celiac disease. Preventative care measures, including scheduling a mammogram and vaccinations for pneumonia and Tdap, were discussed, with the patient opting to receive the vaccines in October. Orders: Orders Fecal Fat Qualitative Today K52.9 - Noninfective gastroenteritis and colitis, unspecified Calprotectin, Fecal Today K52.9 - Noninfective gastroenteritis and colitis, unspecified Leukocytes Stool Qualitative Today R19.7 - Diarrhea, unspecified MM tomosynthesis screening BI Today Z12.31 - Encounter for screening mammogram for malignant neoplasm of breast Vitamin D 25-OH Total 3 Months E55.9 - Vitamin D deficiency, unspecified CDiff Gene PCR Today K52.9 - Noninfective gastroenteritis and colitis, unspecified Giardia Ag Stool EIA Today R19.7 - Diarrhea, unspecified H pylori Ag Stool Today R19.7 - Diarrhea, unspecified Lipid Panel 3 Months E78.5 - Hyperlipidemia, unspecified Comprehensive [place]. Panel Fast 3 Months I10 - Essential (primary) hypertension Celiac Disease Panel 3 Months K52.9 - Noninfective gastroenteritis and colitis, unspecified US abdomen limited Today R10.9 - Unspecified abdominal pain Referrals Gastroenterology Referral K52.9 - Noninfective gastroenteritis and colitis, unspecified Patient Instructions: - Schedule and complete the mammogram screening. - Collect stool samples as instructed and submit them to the lab. - Plan to receive pneumonia and Tdap vaccines in October. - Follow up with gastroenterology for further evaluation of chronic diarrhea.
== END 2025-07-19 08:35 | disposition home or self-care (01) ==
LOC: HO.HMCH 07:48
PROVIDERS: PCP Internal Medicine; Visit Provider Internal Medicine
DX: I10 Essential (primary) hypertension (principal); E21.3 Hyperparathyroidism, unspecified; K52.9 Noninfective gastroenteritis and colitis, unspecified; M25.512 Pain in left shoulder; E04.2 Nontoxic multinodular goiter

== ENCOUNTER → 2025-07-19 07:47 | Outpatient (BNVA) | payer MEDICARE, SELFPAY | PROVIDERS: PCP Internal Medicine; Visit Provider Internal Medicine | DX: I10 Essential (primary) hypertension (principal); E21.3 Hyperparathyroidism, unspecified; K52.9 Noninfective gastroenteritis and colitis, unspecified; E04.2 Nontoxic multinodular goiter; M19.012 Primary osteoarthritis, left shoulder; E78.5 Hyperlipidemia, unspecified | CPT/HCPCS: 96127; 99212 ==

== ENCOUNTER 2025-08-15 09:19 | Outpatient (AMB) | payer MEDICARE, SELFPAY ==
[2025-08-15 09:21] VITALS: BP 116/78; PULSE 91; O2SAT 98; BMI 41.1
--- NOTE | 2025-08-15 09:21 | MHC.OFFVIS ---
Vital Signs 08/15/25 09:21 Height 5 ft 5 in Weight 246 lb 14.684 oz BMI 41.1 BP 116/78 Blood Pressure Location Rt brachial Position Sitting Pulse 91 Pulse Source Pulse Oximeter Pulse Oximetry (%) 98 Oxygen Delivery Method Room Air Intake Visit Reasons: Thyroid nodule Intake Note: Patient present today for Thyroid nodule office visit. Glass Products Inspector Required: No Accompanied by: Self / Same As Patient Allergies amoxicillin Allergy (Intermediate, Verified 08/15/25 09:22) diarrhea dicyclomine Allergy (Intermediate, Verified 08/15/25 09:22) BP spike Medication List - Last Reconciled 08/15/25 by Verna Johnson MD losartan 50 mg PO DAILY 90 days nifedipine ER 60 mg PO BID HPI Comments Details: 69 YO F with PMHx of a Thyroid Nodule who is seen in F/U for a MNG and elevated PTH level MNG HPI from prior visit Was initially diagnosed with a multinodular thyroid in February 2021 with a thyroid US revealing multiple bilateral nodules, including a 1.9 cm LLP nodule. This also revealed a 1.2 cm exophytic lesion posterior to the L lobe which apepared to represent a lymph node. 07/05/2021 for FNA biopsy, but was unable to tolerate this due to extreme anxiety. Procedure was aborted and she was to be scheduled with IR for FNA under conscious sedation. FNA biopsy by Dr. Berrios 08/03/2021 of a LLP 1.9 cm thyroid nodule, with benign cytology. The 1.2 cm lesion posterior to the L lobe of the thyroid was also biopsied, with cytology indeterminate, but suspicious for parathyroid cells. There was no malignancy identified. Ultrasound 08/03/2024 showed significant increase in the size of the left lower pole dominant nodule now measuring 2.5 x 1.8 x 1.7 cm, underwent FNA of this nodule on 09/08/24 which came back as AUS, Erie category 3 with Hurthle cell change. Afirma results came back with no result due to sample processing error.. 03/02/25: s/p FNA of the left inerior 2.5 cm nodule which came back benign this time but because results from 09/08/24 was AUS with benign Afirma, 4% risk of malignancy No trouble swallowing, no difficulty breathing, no changes in voice. Sometimes at night feels gasping for air but has sleep apnea, doesnt wear CPAP. Does report some increased hair loss Denies any history of head or neck irradiation. Denies any family history of thyroid cancer. Interval history Will plan to repeat thyroid US in February 2026 because of recent increase in size of the nodule Hyperparathyroidism labs revealed hyperparathyroidism 09/01/2021 Calcium 10.0, Albumin 4.3, PTH 91 and Vitamin D 60.1. She had a DEXA scan 11/21/2021 which was WNL including the distal forearm. Most recent DEXA 01/10 showed normal bone density but no foraerm. She fractured a rib 10/09 from a sneezing episode. No other recent fractures, broke left leg at 2 years of age fall from monkey bar No kidney stones, no blood in urine Does have GFR <60 at 47 per labs 06/09 No constipation, sometimes gets loose stools, not too often , no increased urination, no brain fog, no abd pain regularly sometimes intermittent right abd pain but has cholelithiaisis Was previoulsy on HCTZ but off at least since 06/09 No family history of kidney stones, calcium problems Taking vitamin D 1000 units daily (Nature plus ) no calcium supplements No milk, does have cheese 3-4 times a week, yogurt very few times Interval history : now doing milk in cereal, 1 serving yogurt almost every day and cheese 3-4 times a week vitamin D 1000 units daily No falls or fractures Labs repeated May 2025 showed normal calcium levels, EGFR greater than 60, normal vitamin-D levels, normal 24 hour urine calcium levels actually on the lower side at 53, PTH elevated at 122, phosphorus mildly low at 1.9. However patient has been having months of chronic diarrhea. This recently improved. Hypertension : No need to address further unless has a uncontrolled hypertension Diagnosed when she was in her 30s Does have history of sleep apnea but does not wear a CPAP Currently on losartan 50 mg daily and recently was having uncontrolled blood pressure with systolic in the 160s so nifedipine was increased to 60 mg twice daily from once daily. She is also following Nephrology. Blood pressure within goal today. Interval history Blood work from May 2025 showed non suppressed renin, aldosterone on the higher side 11, while she is on losartan which can falsely elevate renin levels, would consider retesting if she continues to have uncontrolled hypertension, at this point she is well-controlled on her current regimen with just 2 medications. Physical exam General: sitting comfortably in no acute distress HEENT: normocephalic/atraumatic,, moist oral mucosa Neck: supple, symmetrical, no thyromegaly ,palpable 1-2 cm left sided nodule , no dorsocervical or supraclavicular fat pads Cardiac: normal heart sounds Pulm: normal breath sounds B/L, no added breath sounds Abd: not distended, no tenderness Extremities: no edema, no signs of myxedema Laboratory Tests 09/01/21 10/06/21 08/22/22 07:24 08:07 07:00 Creatinine Estimated GFR Calcium 9.5 D 10.2 D Phosphorus 2.8 3.1 Albumin 4.3 4.4 25-OH Vitamin D Total 60.1 38.5 TSH Free T4 PTH Intact 91 H 75 H 81 H Calcium (PTH Intact) 10.0 10.1 10.0 01/20/24 06/05/24 06/05/24 08:09 07:46 07:46 Creatinine Estimated GFR 55 Calcium 9.8 Phosphorus Albumin 4.0 4.0 25-OH Vitamin D Total 31.6 31.6 TSH Free T4 PTH Intact Calcium (PTH Intact) 06/05/24 06/05/24 07:46 Unknown Creatinine 1.14 Estimated GFR 47 Calcium 9.8 Phosphorus 2.2 L Albumin 4.1 25-OH Vitamin D Total TSH 1.25 Free T4 0.98 PTH Intact 150.2 H 155.4 H Calcium (PTH Intact) Laboratory Tests 09/01/21 10/06/21 08/22/22 07:24 08:07 07:00 Potassium Creatinine Estimated GFR Calcium 9.5 D 10.2 D Ionized Calcium Phosphorus 2.8 3.1 Magnesium Albumin 4.3 4.4 Renin 25-OH Vitamin D Total 60.1 38.5 Aldosterone TSH Free T4 PTH Intact 91 H 75 H 81 H Calcium (PTH Intact) 10.0 10.1 10.0 01/20/24 06/05/24 06/05/24 08:09 07:46 07:46 Potassium Creatinine Estimated GFR 55 Calcium 9.8 Ionized Calcium Phosphorus Magnesium Albumin 4.0 4.0 Renin 25-OH Vitamin D Total 31.6 31.6 Aldosterone TSH Free T4 PTH Intact Calcium (PTH Intact) 06/05/24 06/05/24 06/06/25 07:46 Unknown 08:37 Potassium 3.8 3.9 Creatinine 1.14 0.88 Estimated GFR 47 > 60 Calcium 9.8 9.5 Ionized Calcium 5.2 5.4 Phosphorus 2.2 L 1.9 L Magnesium 2.0 Albumin 4.1 4.4 Renin 2.61 25-OH Vitamin D Total 34.2 Aldosterone 11 TSH 1.25 1.80 Free T4 0.98 1.05 PTH Intact 150.2 H 155.4 H 122.1 H Calcium (PTH Intact) Laboratory Tests 06/06/25 08:00 Ur 24 Hour Volume 1250 Ur Creatinine mg/dL 106.45 Ur Creatinine 24 Hour 1.3 Ur Sodium 24 Hour 86.3 Ur Calcium 24 Hr 53 Calcium/Creat 24 Hr 39 US THYROID 08/03/24 I reviewed the images myself which show the left lower lobe dominant nodule CLINICAL INFORMATION: Nontoxic multinodular goiter. COMPARISON: Thyroid ultrasound 01/13/2024 and 10/21/2022. Ultrasound-guided thyroid biopsy 08/03/2021. CT soft tissue neck 02/13/2021. TECHNIQUE: Linear transducer grayscale and color Doppler examination with attention to the region of the thyroid. FINDINGS: SIZE: Measurements of the thyroid lobes and nodules are given in sagittal, anteroposterior and transverse dimensions respectively. Right Thyroid Lobe: 3.8 x 1.6 x 2.0 cm, volume 6.5 mL. Previously 3.4 x 1.4 x 1.7 cm, volume 4.1 mL. Parenchyma: The gland echotexture is homogeneous. Thyroid vascularity is normal. Left Thyroid Lobe: 4.8 x 1.9 x 2.1 cm, volume 9.8 mL. Previously 4.6 x 2.2 x 2.2 cm, volume 12.1 mL. Parenchyma: The gland echotexture is homogeneous. Thyroid vascularity is normal. Isthmus: 0.7 cm in maximum AP dimension. Previously 0.4 cm. Estimated total number of nodules greater than or equal to 1 cm: 1. Retail Advertising Account Executive nodules are described as follows: 1. Location: Right mid pole. Size: 0.3 x 0.4 x 0.3 cm, volume 0.03 mL. Nodule characteristics: Composition: Solid (2). Echogenicity: Hyperechoic (1). Shape: Not taller than wide (0). Margins: Smooth (0). Echogenic Foci: None (0). ACR TI-RADS total points: 3 ACR TI-RADS category: 3 2. Location: Isthmus. Size: 0.4 x 0.5 x 0.5 cm, volume 0.06 mL. Nodule characteristics: Composition: Solid (2). Echogenicity: Hypoechoic (2). Shape: Not taller than wide (0). Margins: Smooth (0). Echogenic Foci: None (0). ACR TI-RADS total points: 4 ACR TI-RADS category: 4 3. Location: Left lower pole. Size: 2.5 x 1.8 x 1.7 cm, volume 4.1 mL. Previously: 2.0 x 1.6 x 1.9 cm, volume 3.2 mL. Nodule characteristics: Composition: Solid (2). Echogenicity: Hyperechoic (1). Shape: Not taller than wide (0). Margins: Ill-defined (0). Echogenic Foci: None (0). ACR TI-RADS total points: 3 Previous: 6 ACR TI-RADS category: 3 Previous: 4 Significant change in size (>/= 20% in 2 dimensions and minimal increase of 2 mm or 50% or greater increase in volume): Yes Change in features: Yes Change in ACR TI-RADS risk category: Yes 4. Location: Left mid pole. Size: 0.5 x 0.4 x 0.5 cm, volume 0.05 mL. Nodule characteristics: Composition: Cystic(0). ACR TI-RADS total points: 0 ACR TI-RADS category: 1 NODES: No lymphadenopathy is seen in the tissue surrounding the thyroid gland. US/US thyroid IMPRESSION: 1. Bilateral thyroid nodules are seen, as detailed. The increased 2.5 cm TR 3 nodule at the lower pole of the left lobe meets ACR biopsy criteria and is amenable to ultrasound-guided biopsy, if clinically indicated and not already performed. 2. There is an asymmetric goiter, left lobe greater than right. US THYROID 01/10 I reviewed the images myself which show the left lower lobe dominant nodule CLINICAL INFORMATION: Nontoxic multinodular goiter. COMPARISON: Thyroid ultrasound 10/21/2022 and 03/14/2021. Ultrasound-guided thyroid biopsy 08/03/2021. CT soft tissue neck 02/13/2021. TECHNIQUE: Linear transducer dodd-scale and color Doppler examination with attention to the region of the thyroid. FINDINGS: SIZE: Measurements of the thyroid lobes and nodules are given in sagittal, anteroposterior and transverse dimensions respectively. Right Thyroid Lobe: 3.4 x 1.4 x 1.7 cm, volume 4.1 mL. Previously 3.5 x 1.5 x 1.5 cm, volume 4.0 mL. Parenchyma: The gland echotexture is heterogeneous. Thyroid vascularity is normal. Left Thyroid Lobe: 4.6 x 2.2 x 2.2 cm, volume 12.1 mL. Previously 5.0 x 2.1 x 1.5 cm, volume 8.3 mL. Parenchyma: The gland echotexture is heterogeneous. Thyroid vascularity is normal. Isthmus: 0.4 cm in maximum AP dimension. Previously 0.4 cm. Estimated total number of nodules greater than or equal to 1 cm: 1. Retail Advertising Account Executive nodules are described as follows: 1. Location: Right upper/mid pole. Size: 0.6 x 0.5 x 0.3 cm, volume 0.05 mL. Previously: 0.9 x 0.8 x 0.6 cm, volume 0.2 mL. Nodule characteristics: Composition: Mixed cystic and solid (1). Echogenicity: Hypoechoic (2). Shape: Not taller than wide (0). Margins: Ill-defined (0). Echogenic Foci: Comet-tail artifacts (0). ACR TI-RADS total points: 3 Previous: 4 ACR TI-RADS category: 3 Previous: 4 Significant change in size (>/= 20% in 2 dimensions and minimal increase of 2 mm or 50% or greater increase in volume): Change in features: Change in ACR TI-RADS risk category: 2. Location: Right upper pole. Size: 0.3 x 0.4 x 0.2 cm, volume 0.02 mL. Previously: 0.4 x 0.3 x 0.2 cm, volume 0.01 mL. Nodule characteristics: Composition: Solid/almost completely solid (2). Echogenicity: Hypoechoic (2). Shape: Not taller than wide (0). Margins: Ill-defined (0). Echogenic Foci: None (0). ACR TI-RADS total points: 4 Previous: 4 ACR TI-RADS category: 4 Previous: 4 Significant change in size (>/= 20% in 2 dimensions and minimal increase of 2 mm or 50% or greater increase in volume): Change in features: Change in ACR TI-RADS risk category: 3. Location: Left lower pole. Size: 2.0 x 1.6 x 1.9 cm, volume 3.2 mL. Previously: 1.8 x 1.6 x 1.4 cm, volume 2.2 mL. Nodule characteristics: Composition: Solid/almost completely solid (2). Echogenicity: Isoechoic (1). Shape: Taller than wide (3). Margins: Ill-defined (0). Echogenic Foci: None (0). ACR TI-RADS total points: 6 Previous: 3 ACR TI-RADS category: 4 Previous: 3 Significant change in size (>/= 20% in 2 dimensions and minimal increase of 2 mm or 50% or greater increase in volume): Yes Change in features: No Change in ACR TI-RADS risk category: Yes NODES: No lymphadenopathy is seen in the tissue surrounding the thyroid gland. US/US thyroid IMPRESSION: 2.0 cm left lower pole TR4 thyroid nodule meets criteria for biopsy. Fine-needle aspiration recommended. This study was presented today, 01/14/2024 at 9:00 AM, for interpretation. PSA staff will provide results to referring provider at this time. BONE DENSITOMETRY 12/2023 CLINICAL INDICATION: Nontoxic multinodular goiter. COMPARISON: Baseline BD dated 11/21/2021. TECHNIQUE: Using a [employer] DXA System (software version: 13.1) manufactured by [employer], dual-energy x-ray absorptiometry was performed of the lumbar spine, left hip, and left forearm radius 33%. The images are of good technical quality. Summary results are attached. FINDINGS: LEFT FEMUR, NECK: Current: BMD 0.973 g/cm2, Z-score 0.4, T-score -0.5, normal. Baseline: BMD 0.932 g/cm2. LEFT FEMUR, TOTAL: Current: BMD 0.994 g/cm2, Z-score 0.4, T-score -0.1, normal, 0.8% decrease from baseline (<5% change is not significant). Baseline: BMD 1.002 g/cm2. LEFT FOREARM RADIUS 33%: BMD 0.981 g/cm2, Z-score 2.9, T-score 1.2, normal, 0.7% decrease from baseline (<5% change is not significant). Baseline: BMD 0.988 g/cm2. AP SPINE L1-L2 (excluding L3 and L4): The data of L1-L4 has been changed to exclude the L3 and L4 vertebral bodies, because degenerative sclerosis at these levels may cause overestimation of lumbar spine density. Current: BMD 1.210 g/cm2, Z-score 0.9, T-score 0.4, normal, 3.6% decrease from baseline (<5% change is not significant). Baseline: BMD 1.255 g/cm2. IDENTIFIED RISK FACTORS: Menopause, height loss, history of fracture (adult), secondary osteoporosis (hyperthyroidism). HISTORY OF FRACTURE: Other. [facility] Medical History Transaminitis Hyperparathyroidism Morbid obesity Multinodular thyroid Breast mass Shortness of breath Laryngeal disorder Thyroid nodule Submandibular swelling Hypovitaminosis D Neck mass Neck pain Lymphadenopathy Essential hypertension Surgical History H/O colonoscopy History of laparoscopy History of D&C History of removal of cyst History of appendectomy History of tonsillectomy Family History Father Hypertension Prostate cancer Mother Hypertension Diabetes Dementia Social History Household Members Other:: lives alone Housing: Apartment Alcohol intake: current Alcohol intake frequency: holidays/special occasions only Alcohol type: wine and hard liquor Patient Tobacco Use Status: Never used Tobacco Tobacco use type: Cigarette e-Cigarette/Vaping Use: Never Used Second Hand Smoke Exposure: Yes service: No Current occupational status: retired Current occupation: Works -nights- [employer] Current occupational exposures/hazards: No Cognitive needs: No Hearing needs: No Vision needs: Yes (Glasses) Female Reproductive History Menstrual Age of Menarche: 18 Physical Exam Vital Signs: Last Vital Signs Pulse 91 08/15/25 09:21 BP 116/78 08/15/25 09:21 BMI result Body Mass Index 41.1 Assessment & Plan Assessment & Plan (1) Multinodular thyroid: Code(s): E04.2 - Nontoxic multinodular goiter Category: Medical Plan: Patient with no family history of thyroid cancer, with no history of head or neck radiation coming in today for follow up of multinodular goiter. Diagnosed with thyroid nodules in 2020. Underwent FNA in July 2021 of the left dominant lower lobe nodule measuring 1.8 cm at the time, which was benign. She also had a lymph node on the same side biopsied that was negative for malignant cells, however showed some inflammatory cells. She does not have any compressive symptoms. TSH 06/09 was unremarkable. t ultrasound from December 2023 showed growth in the side of the nodule that is significant which measured 2 cm in the largest dimension, solid isoechoic TR 4 nodule. We repeated a thyroid ultrasound done 08/03/2024 which again showed further significant increase in the size of the nodule. This now measures 2.5 cm in the maximum dimension. I reviewed the images myself and given significant change in size this met criteria for FNA.underwent FNA of this nodule on 09/08/24 which came back as AUS, Erie category 3 with Hurthle cell change. Afirma results came back as no result due to sample processing error. 03/02/25: s/p FNA of the left inerior 2.5 cm nodule which came back benign this time but because results from 09/08/24 was AUS with benign Afirma, 4% risk of malignancy Will plan to repeat thyroid US in February 2026 from now because of recent increase in size of the nodule Normal TFTs from May 2025 Plan: -repeat ultrasound thyroid ordered for February 2026 -ordered TSH and free T4 to be done prior to follow up in March 2026 -follow up in March 2026 to discuss results (2) Hyperparathyroidism: Code(s): E21.3 - Hyperparathyroidism, unspecified Category: Medical Plan: Patient with elevated PTH levels in the range of 90-100 since at least 2020. Has had normal calcium levels. Normal vitamin-D levels. Phosphorus most recently noted to be slightly low. GFR noted to be in the 60s. Labs repeated May 2025 showed normal calcium levels, EGFR greater than 60, normal vitamin-D levels, normal 24 hour urine calcium levels actually on the lower side at 53, PTH elevated at 122, phosphorus mildly low at 1.9. However patient has been having months of chronic diarrhea. This recently improved. The low phosphorus is likely in the setting of multiple loose stools rather than anything to do with her parathyroid. Her bowel movements have now improved, but she is considering a possible GI evaluation. For PTH elevation Differentials include possibly primary hyperparathyroidism vs normoclacemic hyperparathyrodiism or secondary hyperparathyroidism in the setting of poor calcium intake especially given 24 hour urine calcium levels were low. Her GFR has improved again now, likely that was also low previously early 2024 in the setting of multiple loose stools. she used to be on hydrochlorothiazide, which could result in some of the hypercalcemia or unmasking of hyperparathyroidism. At this time she has been off hydrochlorothiazide since early 2024 Patient is above the age of 50, has no history of osteoporosis with normal forearm on bone density done in 2021, last bone density scan December 2023, she does not have any significant symptoms of hypercalcemia, no history of kidney stones. Her GFR greater than 60. Of note On previous thyroid ultrasound she was also noted to have a left lymph node that was biopsied in July 2021 and showed inflammatory cells with some suspicion of parathyroid adenoma. Plan: -continue to maintain good nutritional intake of calcium -continue vitamin-D supplementation -labs ordered to be done prior to next follow up in March 2026 -can consider repeating bone density sometime in 2025 Plan I spent 30 minutes in reviewing the record, seeing the patient and documenting in the medical record. Orders: Orders Albumin Level 02/27/26 E04.2 - Nontoxic multinodular goiter, E21.3 - Hyperparathyroidism, unspecified Calcium 02/27/26 E04.2 - Nontoxic multinodular goiter, E21.3 - Hyperparathyroidism, unspecified Phosphorus 02/27/26 E04.2 - Nontoxic multinodular goiter, E21.3 - Hyperparathyroidism, unspecified Vitamin D 25-OH Total 02/27/26 E04.2 - Nontoxic multinodular goiter, E21.3 - Hyperparathyroidism, unspecified Parathyroid Hormone Intact 02/27/26 E04.2 - Nontoxic multinodular goiter, E21.3 - Hyperparathyroidism, unspecified Thyroid Stimulating Hormone 02/27/26 E04.2 - Nontoxic multinodular goiter, E04.9 - Nontoxic goiter, unspecified, E21.3 - Hyperparathyroidism, unspecified Free T4 (Free Thyroxine) 02/27/26 E04.2 - Nontoxic multinodular goiter, E04.9 - Nontoxic goiter, unspecified, E21.3 - Hyperparathyroidism, unspecified Calcium, Ionized 02/27/26 E04.2 - Nontoxic multinodular goiter, E21.3 - Hyperparathyroidism, unspecified Creatinine 02/27/26 E04.2 - Nontoxic multinodular goiter, E21.3 - Hyperparathyroidism, unspecified Patient Instructions: You need a repeat thyroid in February 2026, someone should be calling you to schedule this, please make sure this is done prior to your next follow up with me in March 2026 Do blood work 2-3 weeks prior to your next appointment with me in March 2026 Coding Level of Care Code Est Pt Level 4 (42335) Diagnoses Multinodular thyroid E04.2 Hyperparathyroidism E21.3 Time Spent (min) 30
--- OUTSIDE RECORDS SUMMARY | 2025-08-15 10:04 | XMS_ITS | Clinical Summary ---
Author Organization [facility] Address [address] [address] Phone Care Team Providers Care Metal Fence Erector Name Role Phone Marcel Hong MD Primary Care Provider [phone] Allergies Active Allergy Reactions Criticality Noted Date [...] Office Communication [facility] [address] [id number] Zofia Fraser ARNP 05/26/2025 Refill [facility] [address] [id number] Rene Baires Hypertensive disorder (Primary Dx) 05/17/2025 Orders Only [facility] [address] [phone] Elio Jhamax from Last 3 Months Family History Medical [...] patient's age to complete this topic Insurance [facility] Care Teams Metal Fence Erector Relationship Specialty Start Date End Date Marcel Hong MD [address] [id number] PCP - General Nephrology 04/28/24
== END 2025-08-15 09:58 | disposition home or self-care (01) ==
LOC: HO.ENCR 09:20
PROVIDERS: PCP Internal Medicine; Visit Provider Student in an Organized Health Care Education/Training Program
DX: E04.2 Nontoxic multinodular goiter (principal); E21.3 Hyperparathyroidism, unspecified
CPT/HCPCS: 99214

== ENCOUNTER → 2025-08-15 09:19 | Outpatient (BNVA) | payer MEDICARE, SELFPAY | PROVIDERS: PCP Internal Medicine; Visit Provider Student in an Organized Health Care Education/Training Program | DX: E04.2 Nontoxic multinodular goiter (principal); E21.3 Hyperparathyroidism, unspecified | CPT/HCPCS: 99212 ==

== ENCOUNTER 2025-08-17 07:45 | Outpatient (AMB) | payer MEDICARE, SELFPAY ==
--- OUTSIDE RECORDS SUMMARY | 2025-08-17 07:49 | XMS_ITS | Clinical Summary ---
Author Organization [facility] Address [address] [address] Phone Care Team Providers Care Office Lead Name Role Phone Marcel Hong MD Primary Care Provider [phone] Allergies Active Allergy Reactions Criticality Noted Date [...] [facility] [address] [id number] Zofia Fraser ARNP 05/26/2025 Refill [facility] [address] [id number] Rene Baires Hypertensive disorder (Primary Dx) 05/17/2025 Orders Only [facility] [address] [id number] Elio Jhamax from Last 3 [...] patient's age to complete this topic Insurance [facility] Care Teams Office Lead Relationship Specialty Start Date End Date Marcel Hong MD [address] [id number] PCP - General Nephrology 04/28/24
--- NOTE | 2025-08-17 07:55 | MHC.OFFVIS ---
Vital Signs 08/17/25 07:56 Height 5 ft 5 in Weight 246 lb BMI 40.9 BP 132/62 Blood Pressure Location Lt brachial Position Sitting Pulse 77 Oxygen Delivery Method Room Air Intake Visit Reasons: - Noninfective gastroenteritis and colitis, unspec Intake Note: Patient complex follow up for - Noninfective gastroenteritis and colitis, unspecified/Skye pt cristina 01/2023. Patient cc: abdominal pain after eating on and off, GERD come and go, very soft stool, hx of bloody hemorrhoids, dizziness, with some dates with poor appetite feeling fullness and some difficulties swallowing on and off. Grid Operator Required: No Accompanied by: Self / Same As Patient Allergies amoxicillin Allergy (Intermediate, Verified 08/17/25 07:55) diarrhea dicyclomine Allergy (Intermediate, Verified 08/17/25 07:55) BP spike Medication List - Last Reconciled 08/17/25 by Ivelisse Begum CNP ibuprofen 400 mg PO Q8H PRN losartan 50 mg PO DAILY 90 days nifedipine ER 60 mg PO BID HPI HPI - Noninfective gastroenteritis and colitis, unspec: Details: Patient is a 70-year-old female with PMH of obesity, hypertension, hyperparathyroidism. Referred by PCP for further evaluation of chronic diarrhea. Pt referred for chronic diarrhea ongoing >6 mo, now improved. Previously experienced frequent episodes of diarrhea, described as watery, loose stools (types 6?7 on [place] scale), sometimes urgency, up to a few times daily, with intermittent solid BMs. Over the past several months, frequency and severity of diarrhea decreased; current BMs mostly solid with occasional soft or loose stools, intermittent mushy consistency, and rare urgency. Reports episodic abd pain, often post-prandial, sometimes burning sensation localized to right upper quadrant or epigastric, less commonly mid-abdomen, occasionally associated with nausea but no emesis. Abd pain partially relieved by defecation but not always; some BMs occur overnight (1?3 am). Variable appetite with early satiety. Intermittent mild heartburn and periodic regurgitation; no odynophagia, current dysphagia, or food impaction. 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 Reports sleep disturbance due to untreated mild MAULIK; not currently using CPAP. Pt states prior colon polyps removed (2014). 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 No hx immunosuppression, recent travel, or infectious exposure. Patient denies: fever/chills, vomiting, unintentional wt loss, or melena/hematochezia. Social hx: -ETOH use, socailly on weekends -denies recreational drug use -non-smoker - family hx as below -denies personal hx of CA -denies significant cardiopulmonary history -tolerated anesthesia in the past without difficulty. [facility] Medical History (Updated 08/17/25 @ 09:04 by Ivelisse Begum CNP) Colon cancer screening Cholelithiases Transaminitis Hyperparathyroidism Morbid obesity Multinodular thyroid Breast mass Shortness of breath Laryngeal disorder Thyroid nodule Submandibular swelling Hypovitaminosis D Neck mass Neck pain Lymphadenopathy Essential hypertension Surgical History H/O colonoscopy History of laparoscopy History of D&C History of removal of cyst History of appendectomy History of tonsillectomy Family History Father Hypertension Prostate cancer Mother Hypertension Diabetes Dementia Social History Household Members Other:: lives alone Housing: Apartment Alcohol intake: current Alcohol intake frequency: holidays/special occasions only Alcohol type: wine and hard liquor Patient Tobacco Use Status: Never used Tobacco Tobacco use type: Cigarette e-Cigarette/Vaping Use: Never Used Second Hand Smoke Exposure: Yes service: No Current occupational status: retired Current occupation: Works -nights- [employer] Current occupational exposures/hazards: No Cognitive needs: No Hearing needs: No Vision needs: Yes (Glasses) Female Reproductive History Menstrual Age of Menarche: 18 Review of Systems Const Reports as per HPI ENT Reports as per HPI Card Reports as per HPI Resp Reports as per HPI GI Reports as per HPI Reports as per HPI Physical Exam Vital Signs: Oxygen Delivery Method Room Air 08/17/25 07:56 BMI result Body Mass Index 40.9 Const General: healthy appearing, no acute distress and well developed Nutritional Appearance: average body habitus Orientation/consciousness: patient oriented x3 HEENT Head: Yes normal to inspection, Yes normocephalic and Yes atraumatic Face and sinus: Yes normal facial exam Eyes General: appearance normal, both eyes and all related structures Neck Neck: Yes normal visual inspection Resp Effort & Inspection: normal respiratory effort, able to speak in complete sentences, no tracheal deviation and symmetric chest movement Cardio Jugular venous distension: no JVD GI Inspection: Yes normal to inspection, No distended and Yes obesity Palpation (GI): Soft to palpation, not firm, Tenderness to palpation present (GI) in the LLQ and No hepatosplenomegaly present Auscultation: Hyperactive bowel sounds present Neuro General: patient oriented x3 Gait exam (Neuro): Normal gait present Psych Appearance: grossly normal Mental Status: mental status grossly normal Speech and movement: Normal speech and movement present Affect: normal affect Attitude: cooperative Thought process: Normal thought process present Thought content: Normal thought content present Insight: Good insight present (Psych) Judgement: Good judgement present (Psych) Results Reviewed Results Reviewed: Date of Service: 12/04/21 Procedure(s): US abdomen morataya w elastography Accession Number(s): [id number] cc: Leticia Jasmine MD~ EXAMINATION: US ABDOMEN LIMITED WITH LIVER ELASTOGRAPHY CLINICAL INFORMATION: R74.01 - Elevation of levels of liver transaminase levels COMPARISON: None. TECHNIQUE: Real-time imaging of the abdominal viscera. Noninvasive ultrasound liver fibrosis assessment is performed using Demario ElastPQ point quantification shear wave elastography (2D-SWE) with a C5-2 MHz transducer. Multiple elastography samples are obtained. FINDINGS: PANCREAS: The visualized pancreas is normal in size and contour and echogenicity. No pancreatic ductal distention. Distal body and tail are partly obscured by bowel gas and not completely imaged. LIVER: The liver is normal in size and smooth in contour. Parenchymal echogenicity is borderline increased. There may be mild underlying hepatic steatosis. No focal parenchymal lesion or intrahepatic biliary ductal dilatation. The right lobe measures 17.0 cm in length. The left lobe measures 12.8 cm in length. Portal flow is towards the liver (hepatopetal). Shear wave liver elastography median stiffness is 1.26 m/s (reference: normal median stiffness is 1.3 m/s or less). IQR/median stiffness to assess sampling precision is 0.17 (reference: good quality data set is IQR/median stiffness of 0.15 or less). GALLBLADDER: There is a 2.5 cm mobile gallstone. Second stone possibly present on one of the images. There is no gallbladder dilatation or wall thickening or pericholecystic fluid. COMMON BILE DUCT: Normal in caliber measuring 0.3 cm in diameter. RIGHT KIDNEY: Normal. No hydronephrosis. No renal calculi or focal parenchymal lesions. The kidney measures 10.2 cm in maximum dimension. FREE FLUID: None. US/US abdomen morataya w elastography IMPRESSION: 1. Gallstone. No gallbladder wall thickening or ductal dilatation. 2. Liver normal in size and smooth in contour. Possible mild hepatic steatosis. 3. Liver elastography: Measurements are consistent with a high probability of normal liver stiffness. Assessment & Plan Assessment & Plan (1) Chronic diarrhea: Comment: 11/14/15 colonoscopy ( Dr. Whittington) complete with excellent prep-diverticulosis, tubular adenoma ( transverse colon) Code(s): K52.9 - Noninfective gastroenteritis and colitis, unspecified Category: Medical Plan: Chronicity (>6 mo), intermittent features, variable stool types; episodic abd pain often post-prandial, fat intolerance, prior gallstones/fatty liver, current absence of alarming features (no GI bleeding, no unexplained wt loss/anemia to date), Hx colon polyps. DDX: IBS (mixed type) VS Post-cholelithiasis sx/functional GI disorder VS Bile acid malabsorption VS Celiac dz/gluten sensitivity VS Microscopic colitis VS IBD (less likely; pending labs/stool studies) VS Colonic neoplasm/polyps (given hx and stool changes?r/o needed). Additional Testing: - Complete ordered stool studies (OC, OP, C. diff, fecal calprotectin, WBC, ) and celiac panel/bloodwork - RUQ abd US (to r/o cholelithiasis, cholecystitis, fatty liver progression) - Discussed screening colonoscopy given recent change in BM habit/consistency. See below Medication Management: - Continue antihypertensives - Avoid NSAIDs if possible, jeff if GI sx worsen Lifestyle Recommendations: - Maintain fiber-rich, balanced diet as tolerated - Adequate hydration - Monitor for further alarm features (GI bleed, persistent abd pain, unexplained wt loss) - Encourage sleep hygiene; address MAULIK if sx persist/worsen Follow-Up: - RTC in 8 wks for test review and further management; earlier if new/worse sx (2) Colon cancer screening: Code(s): Z12.11 - Encounter for screening for malignant neoplasm of colon Category: Medical Plan: Hx colon polyps (2014), new change in stool caliber/consistency, age-appropriate for CRC screening. Screening Options Discussed: - Colonoscopy recommended as gold standard for CRC screening and polyp surveillance, especially given prior polyps and new GI sx. - Cologuard/FIT discussed as non-invasive alternatives; pt previously unable to complete due to diarrhea - now declines both, prefers to wait until lab and US are complete. Barriers/Preferences: - Pt expressed concern re: sedation/anesthesia but reassured regarding moderate sedation protocol. - Transportation assistance for colonoscopy offered; pt accepted support. Plan: - Proceed with colonoscopy after completion of current lab and imaging workup, if agreeable - Pt instructed to report any new alarm features (GI bleed, persistent vomiting, unexplained wt loss, worsening abd pain). (3) Cholelithiases: Code(s): K80.20 - Calculus of gallbladder without cholecystitis without obstruction Category: Medical Qualifiers: Cholelithiasis location: gallbladder Cholecystitis presence: without cholecystitis Biliary obstruction: without biliary obstruction Qualified Code(s): K80.20 - Calculus of gallbladder without cholecystitis without obstruction Plan: Prior US-confirmed gallstones, fatty liver dx Additional Testing: - Repeat RUQ US per ongoing sx (RUQ/epigastric pain) Medication Management: - None specifically; avoid excess dietary fat Lifestyle Recommendations: - Continue wt management, liver-friendly diet; limit NSAIDs to decrease GI/liver risk Plan Follow-up in 8 weeks or sooner as needed Time: I spent a total of 37 minutes on the date of encounter which includes: Preparing to see the patient (reviewed previous documentation, test results and medical history) Performing a medically appropriate exam and/or evaluation Ordering medications, tests, and procedures Documenting clinical information in the health record Orders: Orders Calprotectin, Fecal Today K52.9 - Noninfective gastroenteritis and colitis, unspecified C Reactive Protein Today K52.9 - Noninfective gastroenteritis and colitis, unspecified Ova and Parasite Today K52.9 - Noninfective gastroenteritis and colitis, unspecified Coding Level of Care Code New Pt New Pt Level 4 (01719) Patient Type New Diagnoses Chronic diarrhea K52.9 Colon cancer screening Z12.11 Calculus of gallbladder without cholecystitis without obstruction K80.20 Cholelithiasis location: gallbladder Cholecystitis presence: without cholecystitis Biliary obstruction: without biliary obstruction
[2025-08-17 07:56] VITALS: BP 132/62; PULSE 77; BMI 40.9
== END 2025-08-17 08:45 | disposition home or self-care (01) ==
LOC: HO.HGI 07:46
PROVIDERS: PCP Internal Medicine; Visit Provider Nurse Practitioner Family
DX: K52.9 Noninfective gastroenteritis and colitis, unspecified (principal); K80.20 Calculus of gallbladder without cholecystitis without obstruction
CPT/HCPCS: 99204

== ENCOUNTER → 2025-08-17 07:45 | Outpatient (BNVA) | payer MEDICARE, SELFPAY | PROVIDERS: PCP Internal Medicine; Visit Provider Nurse Practitioner Family | DX: Z12.11 Encounter for screening for malignant neoplasm of colon (principal); K52.9 Noninfective gastroenteritis and colitis, unspecified; K80.20 Calculus of gallbladder without cholecystitis without obstruction | CPT/HCPCS: 99202 ==

== ENCOUNTER 2025-08-30 07:26 | Outpatient (REF) | payer MEDICARE, SELFPAY ==
--- OUTSIDE RECORDS SUMMARY | 2025-08-30 07:29 | XMS_ITS | Clinical Summary ---
Author Organization [facility] Address [address] [address] Phone Care Team Providers Care Cnc Specialist Name Role Phone Leticia Jasmine MD Primary Care Provider Allergies Active Allergy Reactions Criticality Noted Date Comments Clonidine Other (see comments) 07/09/2024 Latex 04/23/2006 Lisinopril Other (see comments) 07/09/2024 Medications losartan (COZAAR) 50 MG tabletIndicatio ns:Hypertensive disorder Take 1 tablet (50 mg total) by mouth 1 (one) time each day 90 tablet 3 5 08/23/20 26 Active NIFEdipine XL (Procardia XL) 60 MG 24 hr tabletIndicatio ns:Hypertensive disorder Take 1 tablet (60 mg total) by mouth in the morning and 1 tablet (60 mg total) in the evening. Do not crush, chew, or split. 180 tablet 3 5 08/23/20 26 Active losartan (COZAAR) 50 MG tablet Take 1 tablet (50 mg total) by mouth 1 (one) time each day 30 tablet 2 4 08/23/20 25 Discontinu ed(Reorder (does not appear on AVS)) NIFEdipine XL (Procardia XL) 60 MG 24 hr tabletIndicatio ns:Hypertensive disorder Take 1 tablet (60 mg total) by mouth in the morning and 1 tablet (60 mg total) in the evening. Do not crush, chew, or split. 180 tablet 08/23/20 25 Discontinu ed(Reorder (does not appear on AVS)) Active Problems Problem Noted Date Diagnosed Date Hypertensive disorder 07/09/2024 Stage 3a chronic kidney disease 07/09/2024 Benign essential hypertension 07/09/2024 Encounters Date Type Department Care Team Description 08/23/2025 8:45 AM EDT Office Visit [facility] [address] [facility] [address] [place] [id number] Zofia Fraser ARNP Stage 3a chronic kidney disease (HCC) (Primary Dx); Hypertensive disorder 05/31/2025 Office Communication [facility] [address] [phone] Zofia Fraser ARNP from Last 3 Months Family History Medical [...] Sign Reading Time Taken Comments Blood Pressure 120/90 08/23/2025 9:15 AM EDT Pulse 86 08/23/2025 8:47 AM EDT Temperature - - Respiratory Rate - - Oxygen Saturation 99% 08/23/2025 8:47 AM EDT Inhaled Oxygen Concentration - - Weight 111 kg (244 lb 9.6 oz) 08/23/2025 8:47 AM EDT Height 167.6 cm (5' 6 ) 04/05/2020 12:01 PM EDT Body Mass Index 39.48 04/05/2020 12:01 PM EDT Plan of Treatment Upcoming Encounters Date Type Department Care Team (Late st Contact Info) Description 11/23/2025 9:45 AM EST Office Visit [facility] [address] [phone] Zofia Fraser ARNP [address] [phone] Health Maintenance Due Date Last Done Comments Breast Cancer Screening 1955 Pneumococcal Vaccine: 50+ Ye ars (1 of 2 - PCV) 1974 Colorectal Cancer Screening: Annual FOBT 2004 Colorectal Cancer Screening: Colonoscopy 2004 Colorectal Cancer Screening: Sigmoidoscopy 2004 Influenza Vaccine (#1) 2025 Hepatitis B Vaccine Aged Out No longe r eligible based on patient's age to complete this topic Procedures Procedure Name Priority Date/Time Associated Diagnosis Comments RENAL FUNCTION PANEL (EXTERNAL LAB ENTRY) Routine 06/06/2025 from Last 3 Months Results * Renal Function Panel (External Lab) (06/06/2025) Glucose 110 mg/dL BUN 13 mg/dL eGFR 60 Sodium 142 mEq/L Potassium 3.9 mEq/L Chloride 107 Carbon Dioxide 27 mmol/L Calcium 9.5 mg/dL Phosphorus, Serum 1.9 mg/dL Albumin (Blood) 4.4 g/dL Creatinine 1.35 mg/dL Blood 06/06/2025 Historical Provider LAB BLOOD ORDERABLES Akanksha l Result from Last 3 Months Insurance [facility] Care Teams Cnc Specialist Relationship Specialty Start Date End Date Leticia Jasmine MD [address] [place] [address] PCP - General Internal Medicine 08/23/25
== END 2025-08-30 07:27 | disposition home or self-care (01) ==
LOC: HO.MAMMO 07:26
PROVIDERS: PCP Internal Medicine; Visit Provider Internal Medicine
DX: Z12.31 Encounter for screening mammogram for malignant neoplasm of breast (principal)
CPT/HCPCS: 77063; 77067

== ENCOUNTER → 2025-08-30 07:45 | Outpatient (BNV) | payer MEDICARE, SELFPAY | PROVIDERS: PCP Internal Medicine; Visit Provider Radiology Body Imaging | DX: Z12.31 Encounter for screening mammogram for malignant neoplasm of breast (principal) | CPT/HCPCS: 77063; 77067 ==

== ENCOUNTER 2025-10-14 07:45 | Outpatient (REF) | payer MEDICARE, SELFPAY ==
--- NOTE | ~2025-10-14 | US_ITS ---
CLINICAL HISTORY: R10.9 - Unspecified abdominal pain US abdomen limited Comparison: None provided Findings: The visualized pancreatic head, aorta, and inferior vena cava are unremarkable. The liver is enlarged, right lobe length is 18.6 cm. Normal in echogenicity, no discrete lesion is visualized in the imaged liver. No bile duct dilatation. Common duct 3 mm diameter. Physiologic distention of the gallbladder, borderline gallbladder wall thickness 3.5 mm, mobile shadowing stone noted, patient is tender in the area of gallbladder per ultrasound worksheet. Main portal vein shows antegrade flow. Right kidney normal, 9.9 cm in length. No free fluid in the right upper quadrant of the abdomen. Impression: 1. Cholelithiasis, sonographic Maddox's sign can not be confirmed or excluded by dopster's input, per ultrasound worksheet, patient is tender in area of the gallbladder, which seems non-specific, interpreting radiologist is not present during the exam. Underdistended gallbladder without convincing wall thickening, no pericholecystic fluid, likely no acute cholecystitis, please correlate clinically. 2. Hepatomegaly. This document has been electronically signed by: Darline Chua MD on 10/14/2025 15:25:33
--- OUTSIDE RECORDS SUMMARY | 2025-10-14 07:47 | XMS_ITS | Clinical Summary ---
Author Organization [facility] Address [address] [address] Phone Care Team Providers Care Catalogue Illustrator Name Role Phone Leticia Jasmine MD Primary Care Provider [phone] Allergies Active Allergy Reactions Criticality Noted Date Comments Clonidine Other (see comments) 07/09/2024 Latex 04/23/2006 Lisinopril Other (see comments) 07/09/2024 Medications losartan (COZAAR) 50 MG tabletIndicatio ns:Hypertensive disorder Take 1 tablet (50 mg total) by mouth 1 (one) time each day 90 tablet 3 08/23/2025 Active NIFEdipine XL (Procardia XL) 60 MG 24 hr tabletIndicatio ns:Hypertensive disorder Take 1 tablet (60 mg total) by mouth in the morning and 1 tablet (60 mg total) in the evening. Do not crush, chew, or split. 180 tablet 3 08/23/2025 6 Active Active Problems Problem Noted Date Diagnosed Date Hypertensive disorder 07/09/2024 Stage 3a chronic kidney disease 07/09/2024 Benign essential hypertension 07/09/2024 Encounters Date Type Department Care Team Description 08/23/2025 8:45 AM EDT Office Visit [facility] [address] [phone] Zofia Fraser ARNP Stage 3a chronic kidney disease (HCC) (Primary Dx); Hypertensive disorder from Last 3 Months Family History Medical [...] Office Visit [facility] [address] [phone] Zofia Fraser ARNP [address] [phone] Health Maintenance Due Date Last [...] complete this topic Insurance [facility] Care Teams Catalogue Illustrator Relationship Specialty Start Date End Date Leticia Jasmine MD [address] [place] [address] PCP - General Internal Medicine 08/23/25
== END 2025-10-14 07:46 | disposition home or self-care (01) ==
LOC: HO.US 07:45
PROVIDERS: PCP Internal Medicine; Visit Provider Internal Medicine
DX: R10.9 Unspecified abdominal pain (principal)
CPT/HCPCS: 76705

== ENCOUNTER → 2025-10-14 07:47 | Outpatient (BNV) | payer MEDICARE, SELFPAY | PROVIDERS: PCP Internal Medicine; Visit Provider Radiology Diagnostic Radiology | DX: K80.20 Calculus of gallbladder without cholecystitis without obstruction (principal); K76.0 Fatty (change of) liver, not elsewhere classified | CPT/HCPCS: 76705 ==

== ENCOUNTER 2025-10-26 08:20 | Outpatient (AMB) | payer MEDICARE, SELFPAY ==
[2025-10-26 08:26] VITALS: BP 138/68; PULSE 83; RESP 18; O2SAT 97; BMI 40.5
--- NOTE | 2025-10-26 08:26 | MHC.PC.OV ---
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: No Accompanied by: Self / Same As Patient Allergies amoxicillin Allergy (Intermediate, Verified 10/26/25 08:46) diarrhea dicyclomine Allergy (Intermediate, Verified 10/26/25 08:46) BP spike Medication List - Last Reconciled 10/26/25 by Leticia Grayson MD ibuprofen 400 mg PO Q8H PRN losartan 50 mg PO DAILY 90 days nifedipine ER 60 mg PO BID Tobacco use date assessed: 10/26/25 Fall risk assessment: 1 Fall in past year Last assessed Fall Risk: 10/26/25 Dental Screening Dental Screen Date: 10/26/25 Did you have a dental visit in the last 12 months?: Yes Did you have a dental problem in the last 6 months where you did not have access to dental care?: No Was dental information given to patient?: Patient has dentist HPI HPI Comments History of Present Illness Details The patient is a 70 year old female presenting for a physical exam. She has a BMI of 40.5, consistent with morbid obesity, and reports a weight gain of 5 pounds since her last visit. She complains of constant thoracic spine pain, chronic fatigue and also epigastric pain. Her medications include losartan 50 mg and nifedipine 60 mg twice daily for hypertension, and ibuprofen as needed. She has known allergies to amoxicillin, which causes diarrhea, and dicyclomine, which causes a blood pressure spike. Past surgical history includes appendectomy, tonsillectomy, left foot cyst removal, D&C, and laparoscopy for removal of adhesions. The patient was diagnosed with cholelithiasis and has a follow-up scheduled with Dr. Garcia. She reports that her IBS has settled down but she experiences postprandial nausea, feels unwell after eating, and food does not taste right. She also notes an epigastric burning sensation, even with just water. She has been trying to eat smaller portions, which seems to be helping. She complains of worsening right-sided rib pain, described as a sharp pain upon sneezing or coughing. She recalls a fall in February and a previous X-ray in 2022 showed a non-displaced fracture of the right 11th rib. She also reports pain in her mid to upper back and shoulders that makes walking difficult. Her family history is significant for a father who at 87 with hypertension and prostate cancer, and a mother who at 88 with dementia, diabetes, and hypertension. The patient does not smoke and drinks wine only on holidays and special occasions. A new Cologuard kit will be sent for colon cancer screening. Immunizations for PCV-20 and tetanus were offered in the office, but the patient deferred. A flu shot was also offered and deferred. She was advised that RSV and Shingrix vaccines must be obtained at a pharmacy. Blood work will be ordered to check vitamin D levels, among other things, to evaluate her fatigue. [facility] Medical History (Updated 10/26/25 @ 10:08 by Leticia Grayson MD) Morbid obesity Colon cancer screening Cholelithiases Transaminitis Hyperparathyroidism Multinodular thyroid Breast mass Shortness of breath Laryngeal disorder Thyroid nodule Submandibular swelling Hypovitaminosis D Neck mass Neck pain Lymphadenopathy Essential hypertension Surgical History H/O colonoscopy History of laparoscopy History of D&C History of removal of cyst History of appendectomy History of tonsillectomy Family History Father Hypertension Prostate cancer Mother Hypertension Diabetes Dementia Social History Household Members Other:: lives alone Housing: Apartment Alcohol intake: current Alcohol intake frequency: holidays/special occasions only Alcohol type: wine and hard liquor Patient Tobacco Use Status: Never used Tobacco Tobacco use type: Cigarette e-Cigarette/Vaping Use: Never Used Second Hand Smoke Exposure: Yes service: No Current occupational status: retired 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 occupation: Works -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- [employer] Current occupational exposures/hazards: No Cognitive needs: No Hearing needs: No Vision needs: Yes (Glasses) Female Reproductive History Menstrual Age of Menarche: 18 Questionnaire Thrive Questionnaire Date Thrive assessed: 10/26/25 I am a: Patient What is your living situation today?: I have a steady place to live Within the past 12 months, did the food you bought not last and you didn't have the money to get more?: Never true Within the past 12 months, did you worry whether your food would run out before you got money to buy more?: I choose not to answer this question Do you have trouble paying for medicines?: I choose not to answer this question Do you have trouble getting transportation to medical appointments?: I choose not to answer this question Do you have trouble paying your heating and electricity bill?: I choose not to answer this question Do you have trouble taking care of your child, family member or friend?: I choose not to answer this question Do you have trouble with day-to-day activities such as bathing, preparing meals, shopping, managing finances, etc.?: I choose not to answer this question Are you currently unemployed and looking for a job?: I choose not to answer this question Are you interested in more education?: I choose not to answer this question Please select the resources that you would like help with: None Currently or been in a relationship where the following occur: I choose not to answer THRIVE Score: 0 ARIEL-7 AMB Questionnaire ARIEL-7 Date ARIEL - 7 assessed: 02/23/25 Source: Developed by Drs. Jose Kenny, Janee Self, Husam Asher and colleagues, with an educational jennifer from [employer]. Review of Systems Const All systems reviewed & are unremarkable except as noted in HPI and below Card Denies chest pain at rest, Denies chest pain with activity, Denies edema, Denies irregular heart rhythm, Denies claudication, Denies dyspnea, Denies dyspnea on exertion, Denies orthopnea, Denies paroxysmal nocturnal dyspnea and Denies slow heart rate Resp Denies cough, Denies dyspnea and Denies dyspnea on exertion GI Denies abdominal pain, Denies change in bowel habits, Denies excessive flatus, Denies nausea and Denies vomiting Denies urinary incontinence, Denies urinary hesitancy and Denies urinary urgency Physical exam (Primary Care) Vital Signs: Last Vital Signs Pulse 83 10/26/25 08:26 Resp 18 10/26/25 08:26 BP 138/68 10/26/25 08:26 Pulse Ox 97 10/26/25 08:26 Oxygen Delivery Method Room Air 10/26/25 08:26 BMI result Body Mass Index 40.5 BMI Assessment/Plan discussion: High BMI High, discussed plan: lifestyle, weight reduction, dietary and physical activity Tobacco/Smoking Status: Tobacco use Status Tobacco use date assessed 10/26/25 10/26/25 08:32 Patient Tobacco Use Status Never used Tobacco 10/26/25 08:32 Tobacco use type Cigarette 10/26/25 08:32 e-Cigarette/Vaping Use Never Used 10/26/25 08:32 Thrive Assessment: Date of Thrive Assessment Date Thrive assessed 10/26/25 10/26/25 08:32 Currently or been in a relationship where the following occur: I choose not to answer HENMT Head: Yes normal to inspection, Yes normocephalic and Yes atraumatic Ears: external ears normal Eyes General: appearance normal, both eyes and all related structures Eyelids: Yes eyelids normal Conjunctivae: conjunctivae normal Neck Neck: Yes normal visual inspection and Yes supple Resp Effort & Inspection: normal respiratory effort Auscultation: clear to auscultation bilaterally Cardio Jugular venous distension: no JVD Rate: regular rate Rhythm: regular rhythm Heart sounds: S1 normal heart sound present and S2 normal heart sound present GI Inspection: Yes normal to inspection Palpation (GI): Soft to palpation and nontender Auscultation: normal bowel sounds Skin General skin exam: no rashes or lesions noted Neuro General: no focal motor deficits Extrem General: Yes full ROM Psych Appearance: grossly normal Coding Level of Care Code Est Pt Level 3 (06286) New Pt Prev Care >65yr (59830) Diagnoses Physical exam Z00.00 Epigastric pain R10.13 Thoracic spine pain M54.6 Morbid obesity E66.01 Chronic fatigue R53.82 Time Spent (min) 34 Assessment & Plan Assessment & Plan (1) Physical exam: Code(s): Z00.00 - Encounter for general adult medical examination without abnormal findings Category: Medical (2) Epigastric pain: Code(s): R10.13 - Epigastric pain Category: Medical (3) Thoracic spine pain: Code(s): M54.6 - Pain in thoracic spine Category: Medical (4) Morbid obesity: Code(s): E66.01 - Morbid (severe) obesity due to excess calories Category: Medical (5) Chronic fatigue: Code(s): R53.82 - Chronic fatigue, unspecified Category: Medical Plan Plan 1. Physical exam Repeat in a year. 1. Cholelithiasis The patient reports postprandial nausea and epigastric burning but denies abdominal pain. She has an upcoming appointment with Dr. Gacria for her cholelithiasis. A study will be ordered to evaluate the epigastrium. 2. Morbid Obesity The patient has a BMI of 40.5. She was counseled on weight loss and portion control, specifically recommending 6 forks of protein and 8 forks of vegetables per meal. 3. Thoracic Spine Pain The patient reports pain in her mid to upper back and shoulders, as well as sharp, right-sided rib pain with coughing or sneezing, which may be related to a prior nondisplaced 11th rib fracture. She will be referred to pain management for her thoracic spine pain. 4. Epigastric pain Upper GI series ordered. 5. Chronic fatigue Labs ordered. Orders: Orders Vitamin D 25-OH Total Today E55.9 - Vitamin D deficiency, unspecified Vitamin B12 and Folate Today E53.8 - Deficiency of other specified B group vitamins Lipid Panel Today E78.5 - Hyperlipidemia, unspecified [place] upper GI series Today R10.13 - Epigastric pain Comprehensive [place]. Panel Fast Today I10 - Essential (primary) hypertension Complete Blood Count Auto Diff Today D64.9 - Anemia, unspecified, R10.13 - Epigastric pain Referrals Cologuard Test Z12.11 - Encounter for screening for malignant neoplasm of colon, Z12.12 - Encounter for screening for malignant neoplasm of rectum Pain Management Referral M54.6 - Pain in thoracic spine
== END 2025-10-26 09:05 | disposition home or self-care (01) ==
LOC: HO.HMCH 08:21
PROVIDERS: PCP Internal Medicine; Visit Provider Internal Medicine
DX: Z00.00 Encounter for general adult medical examination without abnormal findings (principal); R10.13 Epigastric pain; M54.6 Pain in thoracic spine; E66.01 Morbid (severe) obesity due to excess calories; Z68.41 Body mass index [BMI] 40.0-44.9, adult; R53.82 Chronic fatigue, unspecified

== ENCOUNTER → 2025-10-26 08:20 | Outpatient (BNVA) | payer MEDICARE, SELFPAY | PROVIDERS: PCP Internal Medicine; Visit Provider Internal Medicine | DX: Z00.00 Encounter for general adult medical examination without abnormal findings (principal); R10.13 Epigastric pain; E78.5 Hyperlipidemia, unspecified; M54.6 Pain in thoracic spine; E66.01 Morbid (severe) obesity due to excess calories; R53.82 Chronic fatigue, unspecified; D64.9 Anemia, unspecified; E55.9 Vitamin D deficiency, unspecified; E53.8 Deficiency of other specified B group vitamins | CPT/HCPCS: 99212; 99397 ==